=== PATIENT | male | born 1955 | race Caucasian/White ===

== ENCOUNTER 2017-04-08 19:14 | Emergency (ER) | payer BC ==
[~2017-04-08] VITALS: Ht 182.9 cm; Wt 98.0 kg
[~2017-04-08 19:14] MED LIST: ASCA500 PO; LISI2.5T5 PO; LPT40 PO; SELE1TAB PO
[2017-04-08 19:17] VITALS: Ht 182.9 cm; Wt 98.0 kg
[2017-04-08 20:10] LABS: BASO % 0.3 %; BASO ABS # 0.02 K/uL (0-0.2); COMPLETE YES; HEMATOCRIT 42.3 % (42-52); IG% 0.1 %; LYMPH % 20.7 %; MEAN CELL VOLUME 89.6 fL (80-100); MEAN CORPUSCULAR HEMOGLOBIN 30.7 pg (25-34); MEAN CORPUSCULAR HGB CONC 34.3 g/dl (32-36); MEAN PLATELET VOLUME 9.8 fL (7.4-10.4); MONO % 9.9 %; PLATELET COUNT 172 K/uL (130-400); RED BLOOD COUNT 4.72 M/uL (4.7-6.1); WHITE BLOOD COUNT 6.76 K/uL (4.8-10.8)
--- NOTE | 2017-04-08 20:10 | DIAGNOSTIC IMAGING REPORT ---
LEFT TIBIA/FIBULA 2 VIEWS ROUTINE CLINICAL HISTORY: 61 years-old Male presenting with L lower leg pain. TECHNIQUE: Frontal and lateral views of the left lower leg were obtained. COMPARISON: None. FINDINGS: Ankle mortise and knee joint grossly congruent. No acute fracture or malalignment. Degenerative changes at the patellofemoral articulation. Knee joint effusion suggested. IMPRESSION: No acute osseous injury of the left lower leg. Possible knee joint effusion. Electronically signed by: Lev Andrade M.D. 04/08/2017 8:08 PM Dictated Date/Time: 04/08/2017 8:07 PM
[2017-04-08 20:19] LABS: PARTIAL THROMBOPLASTIN RATIO 1.1; PROTHROMBIN TIME (PATIENT) 10.9 SECONDS (9.0-12.0)
[2017-04-08 20:25] LABS: BUN/CREATININE RATIO 19.1 (10-20); CALCIUM 8.2 mg/dl (8.5-10.1); CREATININE 1.5 mg/dl (0.60-1.40); POTASSIUM 3.4 mmol/L (3.5-5.1)
--- NOTE | 2017-04-08 20:27 | DIAGNOSTIC IMAGING REPORT ---
LEFT VENOUS DOPP LOWER EXT UNILAT CLINICAL HISTORY: 61 years-old Male presenting with L lower leg pain and swelling. TECHNIQUE: Real-time grayscale and color and spectral Doppler ultrasound imaging of the veins of the left lower extremity was performed. Compression and augmentation were also utilized. COMPARISON: None. FINDINGS: Left: Common femoral vein: Patent. Femoral vein: Patent. Greater saphenous vein: Patent. Popliteal vein: Patent. Calf veins: Patent. Other: None. IMPRESSION: No evidence of deep venous thrombosis. Electronically signed by: Lev Andrade M.D. 04/08/2017 8:25 PM Dictated Date/Time: 04/08/2017 8:25 PM
--- NOTE | 2017-04-08 21:13 | DIAGNOSTIC IMAGING REPORT ---
LEFT KNEE 3 VIEWS CLINICAL HISTORY: 61 years-old Male presenting with L leg pain; xray shows jt effusion. TECHNIQUE: Frontal, lateral, and sunrise views of the left knee were obtained. COMPARISON: None. FINDINGS: No acute fracture or malalignment. Mild degenerative change at the superior pole of the patella at the insertion of the quadriceps tendon. Minimal osteophytosis in the medial compartment at the medial tibial plateau. No significant degenerative change in the lateral compartment. Trace knee joint effusion may be present. IMPRESSION: 1. No acute osseous injury. 2. Trace knee joint effusion. 3. Degenerative change at the insertion of the quadriceps tendon and minimally at the medial compartment. Electronically signed by: Lev Andrade M.D. 04/08/2017 9:12 PM Dictated Date/Time: 04/08/2017 9:10 PM
[2017-04-08] MEDS ORDERED: IBUPROFEN 600 MG TAB PO STA (21:36)
[2017-04-08] MEDS ORDERED: MAGN1CAP4 PO (21:48)
[2017-04-08] MEDS ORDERED: FLM4 PO (21:48)
[2017-04-08] MEDS ORDERED: LSN/10125 PO (21:48)
[2017-04-08 22:16] VITALS: BP 123/69; PULSE 77; TEMP 36.9; O2SAT 99
--- NOTE | 2017-04-09 21:09 | EMERGENCY ROOM VISIT NOTE ---
ED Visit Note First contact with patient: 19:25 Chief Complaint: Left lower leg pain. History of Present Illness: Mr. Allen is a 61-year-old white male who is brought into the ED via wheelchair complaining of severe left lower leg pain. Historically patient denies any previous significant injuries or surgeries to this area. Patient reports approximately 3 days ago he noted mild pain in the left lower leg starting in the knee and extending to the ankle. Since that time his pain has gradually increased in intensity. He currently describes his pain as a sharp and throbbing sensation. At rest he rates his discomfort 2/10 and with weightbearing and ambulation he rates his discomfort 8/10. His pain is nonradiating. His pain worsens in the pushoff phase of ambulation and weightbearing. He has moderate relief when he is not weightbearing or ambulating. He has not taken any medication for pain prior to arrival at the hospital. He denies any associated symptoms including fevers, chills, sweats, recent trauma, back pain, hip pain, thigh pain, leg weakness/numbness/tingling, previous clots, claudication, cramping. Review of Systems: As noted above in history of present illness. 8 body systems were reviewed and found to be negative as noted above. Past Medical History: (1) Bronchitis (2) Hypertension (3) TIA (transient ischemic attack) (4) Weakness Current Medications: Medications Dose Route/Sig Max Daily Dose Days Date Category Magnesium (Magnesium Oxide) 500 Mg Cap 500 Mg PO DAILY 04/08/17 Reported Lisinopril/Hctz 10/12.5 Mg (HCTZ/Lisinopril) 1 Ea Tab 1 Tab PO DAILY 04/08/17 Reported Tamsulosin HCl 0.4 Mg Cap 0.4 Mg PO HS 04/08/17 Reported Atorvastatin Calcium (Atorvastatin) 40 Mg Tab 40 Mg PO QAM 30 10/26/15 Rx Selenium 100 Mcg Tab 100 Mcg PO DAILY 10/25/15 Reported Allergies to Medications: Patient denies. Social History: Patient is currently employed; he feels safe in his home environment; he denies tobacco and alcohol use. Physical Examination: Vital Signs: Date Time Temp Pulse Resp B/P (MAP) Pulse Ox O2 Delivery O2 Flow Rate FiO2 04/08/17 22:16 36.9 77 18 123/69 99 04/08/17 19:17 36.9 69 18 125/80 98 Room Air GENERAL: 61-year-old male in mild to moderate distress due to pain, nontoxic- appearing, afebrile and hemodynamically stable. NEUROLOGICAL: Awake, alert and oriented to person, place and time. Answering questions appropriately and following commands. Good hand eye coordination. No focal motor or sensory deficits. SKIN: Warm, dry and pink. No soft tissue eruptions or trauma noted. BACK: No tenderness over the thoracic or lumbar bony spine. No tenderness or spasm throughout the paraspinous musculature. Negative straight leg raise test. No CVA tenderness. THORAX: Lungs sounds are clear to auscultation and equal bilaterally with symmetrical chest wall. HEART: Regular rate and rhythm. No gallops, rubs or murmurs are appreciated. ABDOMEN: Flat, soft and nontender. Positive bowel sounds in all quadrants. No guarding, rigidity or organomegaly. LOWER EXTREMITIES: No gross bony deformities. No malrotation or shortening. Left: No tenderness in the hip, thigh, knee, ankle or foot. Mild tenderness over the posterior aspect of the leg with swelling but not erythema. No palpable abscesses or hot skin. No calf tenderness or cords. At rest for range of motion and 4/5 muscle strength in flexion and extension of the knee, plantar flexion and dorsiflexion of the ankles and flexion and extension of all toes. Throughout the leg and foot the skin was warm and pink and capillary refill is brisk. He was able to distinguish light sensations through all dermatomes. 2+ patellar and Achilles deep tendon reflexes intact and equal bilaterally. ED Course: Patient is assessed as noted above. Patient's medication list was reviewed. Laboratory Testing: Test 04/08/17 19:50 Range/Units White Blood Count 6.76 4.8-10.8 K/uL Red Blood Count 4.72 4.7-6.1 M/uL Hemoglobin 14.5 14.0-18.0 g/dL Hematocrit 42.3 42-52 % Mean Corpuscular Volume 89.6 80-100 fL Mean Corpuscular Hemoglobin 30.7 25-34 pg Mean Corpuscular Hemoglobin Concent 34.3 32-36 g/dl Platelet Count 172 130-400 K/uL Mean Platelet Volume 9.8 7.4-10.4 fL Neutrophils (%) (Auto) 68.0 % Lymphocytes (%) (Auto) 20.7 % Monocytes (%) (Auto) 9.9 % Eosinophils (%) (Auto) 1.0 % Basophils (%) (Auto) 0.3 % Neutrophils # (Auto) 4.59 1.4-6.5 K/uL Lymphocytes # (Auto) 1.40 1.2-3.4 K/uL Monocytes # (Auto) 0.67 0.11-0.59 K/uL Eosinophils # (Auto) 0.07 0-0.5 K/uL Basophils # (Auto) 0.02 0-0.2 K/uL RDW Standard Deviation 44.9 36.4-46.3 fL RDW Coefficient of Variation 13.5 11.5-14.5 % Immature Granulocyte % (Auto) 0.1 % Immature Granulocyte # (Auto) 0.01 0.00-0.02 K/uL Prothrombin Time 10.9 9.0-12.0 SECONDS Prothromb Time International Ratio 1.0 0.9-1.1 Activated Partial Thromboplast Time 28.1 21.0-31.0 SECONDS Partial Thromboplastin Ratio 1.1 Sodium Level 140 136-145 mmol/L Potassium Level 3.4 3.5-5.1 mmol/L Chloride Level 104 98-107 mmol/L Carbon Dioxide Level 29 21-32 mmol/L Anion Gap 7.0 3-11 mmol/L Blood Urea Nitrogen 29 7-18 mg/dl Creatinine 1.50 0.60-1.40 mg/dl Est Creatinine Clear Calc Drug Dose 61.9 ml/min Estimated GFR () 57.0 Estimated GFR (Non- 49.2 BUN/Creatinine Ratio 19.1 10-20 Random Glucose 110 70-99 mg/dl Calcium Level 8.2 8.5-10.1 mg/dl Total Bilirubin 0.5 0.2-1 mg/dl Direct Bilirubin 0.2 0-0.2 mg/dl Aspartate Amino Transf (AST/SGOT) 20 15-37 U/L Alanine Aminotransferase (ALT/SGPT) 31 12-78 U/L Alkaline Phosphatase 89 45-117 U/L Total Protein 7.2 6.4-8.2 gm/dl Albumin 3.6 3.4-5.0 gm/dl Left Knee X-Rays: Were read by myself and the radiologist showing no acute fractures or dislocations. D10 or chill changes noted at the insertion of the quadriceps tendon and minimally in the medial compartment with a trace joint effusion. Left Tibia/Fibula X-Rays: Were read by myself and the radiologist showing no acute fractures and a possible knee joint effusion. Left Lower Extremity Venous Doppler Ultrasound: Was reviewed by myself and read by the radiologist showing no evidence of deep vein thrombus. Patient was given 600 mg of ibuprofen by mouth for pain. Patient was reassessed multiple times during his stay in the ED. Patient's case was reviewed with Dr. Mayers; he agreed on diagnostic approach, treatment, disposition and plan. Patient was placed in a knee immobilizer and on nonweightbearing crutches. Patient was educated about today's findings and instructed on his treatment plan ; he verbalized understanding and agreement with this plan. Clinical Impression: Right lower leg pain. Left knee degenerative changes. Decision-Making: Initially my differential diagnosis I considered knee sprain, osteoarthritis exacerbation, gastrocnemius muscle strain, DVT, tibia or fibula fracture and other causes. Disposition: Patient was discharged home in stable condition; prior to departure he was reassessed and subjectively reported he was feeling worse and rated his discomfort 5/10. Plan: Comfort measures including rest, ice, alternating ibuprofen and acetaminophen, knee immobilizer and nonweightbearing crutches were discussed with the patient. Patient was encouraged to follow-up with dairy management specialist if no better in 7 -10 days. Patient was signed off of work for 3 days. Patient was encouraged return ED for worsening/uncontrolled pain, uncontrolled swelling or any new/concerning symptoms.
== END 2017-04-08 22:17 | disposition home or self-care (01) ==
LOC: C.EDB 19:15 → C.EDD 22:17
DX: M79.605 Pain in left leg (principal); I10 Essential (primary) hypertension; Z86.73 Personal history of transient ischemic attack (TIA), and cerebral infarction without residual deficits; Z79.899 Other long term (current) drug therapy

== ENCOUNTER → 2017-07-20 | Outpatient (CLI) | payer BC ==
[~2017-07-20] MED LIST changes: -ASCA500 PO; +FLM4 PO; -LISI2.5T5 PO; +LSN/10125 PO; +MAGN1CAP4 PO
[2017-07-20 12:51] LABS: SYNOVIAL FLUID APPEARANCE HAZY; SYNOVIAL FLUID COLOR YELLOW; SYNOVIAL FLUID MONONUC RELAT 79.8 %; SYNOVIAL FLUID POLYNUC RELAT 20.2 %
== END | disposition home or self-care (01) ==
LOC: C.LABSPEC 10:20
PROVIDERS: ATTEND Family Medicine
DX: M25.562 Pain in left knee (principal); M25.462 Effusion, left knee

== ENCOUNTER → 2017-09-07 | Outpatient (CLI) | payer OTHER ==
--- NOTE | 2017-09-07 15:05 | DIAGNOSTIC IMAGING REPORT ---
LEFT KNEE MRI HISTORY: Left knee stiffness. LT KNEE EFFUSION COMPARISON STUDY: Left knee 04/08/2017. TECHNIQUE: Multiplanar multisequence MRI of the left knee was performed according to standard department protocol without the use of contrast. FINDINGS: Menisci: Focal defect at the posterior root of the medial meniscus is consistent with a complete tear. There is also a horizontal tear seen within the body and posterior horn of the medial meniscus. The medial meniscus is slightly extruded from the joint space. Ligaments: The anterior and posterior cruciate ligaments are intact. The medial and lateral collateral ligaments are normal in appearance. Extensor mechanism: The quadriceps tendon and patellar ligament are intact. Articular cartilage and bone: No fracture or dislocation. Mild marrow edema within the medial femoral condyle cartilage fissure seen within the medial patellar facet. Mild cartilage thinning seen within the medial femoral condyle. Joint effusion: Small to moderate joint effusion. Soft tissues: Tiny popliteal cyst. Mild edema adjacent to the MCL. IMPRESSION: 1. Complete tear of the posterior root of the medial meniscus as well as a horizontal tear at the body and posterior horn of the medial meniscus. 2. Mild degenerative changes as described above. 3. Small to moderate joint effusion. Electronically signed by: Sebas Gastelum M.D. 09/07/2017 3:04 PM Dictated Date/Time: 09/07/2017 2:59 PM
== END | disposition home or self-care (01) ==
LOC: C.MRI 13:35
PROVIDERS: ATTEND Family Medicine
DX: S83.242A Other tear of medial meniscus, current injury, left knee, initial encounter (principal); X58.XXXA Exposure to other specified factors, initial encounter

== ENCOUNTER → 2017-10-22 | Day surgery (SDC) | payer OTHER ==
[2017-09-28 15:39] VITALS: Ht 182.1 cm; Wt 100.0 kg
[~2017-10-22] VITALS: Ht 182.1 cm; Wt 100.0 kg
[~2017-10-22] MED LIST changes: +ASCA500 PO; +ASPI325T39 PO; +ATOR-24 PO; +ATROPINE SULFATE 0.1 MG/ML 5ML SYR IV PRN; +BUPIVACAINE/EPINEPHRINE 0.5% MPF 1:200,000 30 ML VIAL ONE; +CEFAZOLIN 2000MG IV PUSH 15 ML IV SCH; +DEXAMETHASONE SOD INJ 4 MG/ML VIAL ONE; +EpHEDrine SULFATE INJ 50 MG/ML AMP IV PRN; +EpINEphrine INJ 1MG/ML AMP 1 MG/ML AMP ONE; +FENTANYL CITRATE INJ 50 MCG/1 ML 2 ML VIAL IV PRN; +FENTANYL CITRATE INJ 50 MCG/1 ML 2 ML VIAL ONE; +KRIL1000 PO; +LACTATED RINGER'S 1000ML 1,000 ML IV SCH; +LIDOCAINE HCL 1% 20 ML VIAL ONE; +LIDOCAINE HCL 2% 2 ML VIAL (20MG/ML) ONE; -LPT40 PO; -MAGN1CAP4 PO; +MIDAZOLAM HCL 1 MG/ML 2ML VIAL ONE; +MoRPHine SULFATE 2 MG/ML CARP IV PRN; +MoRPHine SULFATE 4 MG/ML 1 ML CARP\\VIAL IV PRN; +ONDANSETRON INJ 2 MG/ML 2 ML VIAL IV PRN; +ONDANSETRON INJ 2 MG/ML 2 ML VIAL ONE; +OXYCODONE/ACETAMINOPHEN 5-325 TAB PO PRN; +PROPOFOL IV EMULSION 10 MG/ML 20 ML VIAL IV ONE
--- NOTE | 2017-10-22 08:36 | History & Physical Bridge - SC ---
H&P Re-Evaluation Bridge Note: I have examined the patient, reviewed the History & Physical and in the interval since the performance of the History & Physical I have noted the following changes of clinical significance: No changes noted
--- NOTE | 2017-10-22 11:30 | [facility] Post Operative Brief Note ---
Immediate Operative Summary Operative Date Oct 22, 2017. Pre-Operative Diagnosis Left Knee Pain Post-Operative Diagnosis Same and Synovitis, Medial Plica, and Loose Body Procedure(s) Performed 1) Left Knee Arthroscopic Chondroplasty: Patella, MFC, LTP with Partial Medial and Lateral Meniscectomies. 2) Extensive Debridement Suprapatellar pouch, fat pad, medial Plicae, gutters. 3) Removal of Loose Body. 4) Exam Under Anesthesia. Surgeon Dr. Shook Pot Builder Surgeon(s) Zen Mosley PA-C (No fellow Avail) Estimated Blood Loss 5ml Findings Consistent with Post-Op Diagnosis Fluids (cc crystalloids) 900 Specimens None Drains None Anesthesia Type General Complication(s) none Disposition Disposition: Recovery Room / PACU (Stable)
--- NOTE | 2017-10-22 11:33 | Discharge Instructions-[facility]urgCtr ---
Discharge Instructions Date of Service Oct 22, 2017. Visit Reason for Visit: Left Knee Medial Meniscus Tear Discharge Discharge Diagnosis / Problem: Status post left knee arthroscopy Discharge Goals Goal(s): Decrease discomfort, Improve function, Increase independence Activity Recommendations Activity Limitations: per Instructions/Follow-up section May Resume Sexual Activity: when tolerated Shower/Bathe: may shower/bathe in 3 days Driving or Machine Use: Not while on Narcotics Anesthesia . Post Anesthesia Instructions: If you have had General Anesthesia or IV Sedation: * Do not drive today. * Resume driving when surgeon permits. * Do not make important decisions or sign legal documents today. * Call surgeon for: 1. Temperature elevations greater than 101 degrees F. 2. Uncontrollable pain. 3. Excessive bleeding. 4. Persistent nausea and vomiting. 5. Medication intolerance (nausea, vomiting or rash). * For nausea and vomiting use only clear liquids such as: tea, soda, bouillon until nausea subsides, then gradually increase diet as tolerated. * If you have any concerns or questions, call your surgeon's office. If physician is unavailable and it is an emergency, call 911 or go to the nearest emergency room. . Instructions / Follow-Up Instructions / Follow-Up Dr. Shook in 10-15 days. PT in 3-5 days. Diet Recommendations Home Diet: resume previous diet Procedures Procedures Performed: 1) Left Knee Arthroscopic Chondroplasty: Patella, MFC, LTP with Partial Medial and Lateral Meniscectomies. 2) Extensive Debridement Suprapatellar pouch, fat pad, medial Plicae, gutters. 3) Removal of Loose Body. 4) Exam Under Anesthesia. Pending Studies Studies pending at discharge: no Medical Emergencies . Who to Call and When: Medical Emergencies: If at any time you feel your situation is an emergency, please call 911 immediately. . Non-Emergent Contact Non-Emergency issues call your: Surgeon Call Non-Emergent contact if: temperature is above 101.5, your pain is not controlled, wound has increased drainage, wound has increased redness . . "Provider Documentation" section prepared by Chester Shook. .
--- NOTE | 2017-10-22 11:34 | [facility] Operative Report ---
Operative Report Operative Date Oct 22, 2017. Pre-Operative Diagnosis Left Knee Pain Post-Operative Diagnosis Same and Synovitis, Medial Plica, and Loose Body Procedure(s) Performed 1) Left Knee Arthroscopic Chondroplasty: Patella, MFC, LTP with Partial Medial and Lateral Meniscectomies. 2) Extensive Debridement Suprapatellar pouch, fat pad, medial Plicae, gutters. 3) Removal of Loose Body. 4) Exam Under Anesthesia. Surgeon Dr. Shook Obstetrics Tech Surgeon(s) Zen Mosely PA-C (No fellow Avail) Estimated Blood Loss 5ml Findings The left knee was examined under anesthesia. Range of motion was 0-130. Ligamentous examination exhibited: stable Jose, posterior drawer, varus and valgus stress at 0 & 30 degrees. ARTHROSCOPIC FINDINGS: There was significant synovitis in the suprapatellar pouch. There were loose bodies noted in the suprapatellar pouch as well as in evacuated fluid from the knee once the trocar had been placed. 1) PATELLOFEMORAL JOINT: The articular cartilage of the Patella had Outerbridge type had Outerbridge type 2 changes and Trochlea had type I changes. 2) GUTTERS: There were a couple of loose bodies in the lateral gutter. 3) MEDIAL COMPARTMENT: The articular cartilage of the femur had diffuse type II changes from 0-90 and there is a small 3 x 2 area of type III changes at 80. The Tibia articular cartilage was intact. The medial meniscus had a full- thickness longitudinal tear at the apex in the white white zone. The posterior horn and root were intact. 4) ACL/PCL: They were both visualized and probed to be intact. 5) LATERAL COMPARTMENT: The lateral compartment was then entered in a figure-of- four position. The femoral articular cartilage was intact and tibial articular cartilage had some type II changes at the anterior and posterior horns. The lateral meniscus had degenerative fraying at the apex. Fluids 900 Specimens None Drains None Anesthesia Type General Complication(s) none Disposition Recovery Room / PACU (Stable) Indications This is a 62-year-old male who has clinical and MRI findings consistent with meniscus tear and chondromalacia. I recommended that a left knee arthroscopy be performed with meniscus repair vs debridement, possible chondroplasty versus microfracture. The patient understands the risks of surgery, which include but not limited to: bleeding, infection, re-operation, damage to nerves and arteries , continued knee pain, progression of OA, DVT, and a 2-5% risk of becoming worse after surgery. The patient understands all of these instructions and explanations, all of his questions have been satisfactorily addressed and the patient has elected to proceed. Informed consent was signed. Description of Procedure The patient was taken to the Operating Room and placed in the supine position after general anesthetic was administered. My initials and a multidisciplinary time-out were used to identify the left place leg as the correct operative limb. Prior to the incision, 2 grams of intravenous Ancef was given. The left leg was then prepped and draped in a standard sterile fashion. The left knee was then injected with 10cc of a 50:50 mix of 1% Lidocaine plain and 0.5% Bupivacaine with epinephrine in a sterile fashion using the superolateral portal. The anterolateral, anteromedial, and superolateral portals were injected with the 50:50 mixture noted above, for a total of 6 cc, in the standard fashion. An anterolateral arthroscopic portal was established with an 11-blade. Next, the arthroscope was introduced into the knee. A diagnostic arthroscopy commenced and both the superolateral and anteromedial portals were established under direct visualization using a spinal needle followed by an 11 blade in the standard fashion. The above findings were observed during the diagnostic arthroscopy. The synovitis and anterior fat pad were debrided as they were encounter with mechanical shaver and Coolcut. The medial plicae was excised with a combination of hand punches, mechanical shaver and Coolcut. The articular cartilage damage was debrided back to stable margins as they were encountered with mechanical shaver. The medial and lateral meniscus tears were evaluated and found to be irreparable and was debrided back to stable margin with hand punches, and mechanical shaver. The knee was copiously irrigated. The arthroscopic instruments were then removed. The loose bodies were removed as they were encountered with the trocar as well as mechanical shaver, and outflow cannula. The portals were closed with 3-0 Prolene in a standard fashion. The wound was dressed with Xeroform gauze, sterile gauze, ABDs, sterile Webril, and a foot to thigh Black bandage. The patient was then transferred to the Recovery Room in stable condition. The sponge and needle counts were correct. Post-op Instructions: The patient will be WBAT. The patient may remove the operative dressing on Post -Op Day #2 and apply Band-Aids to the wounds. The patient may shower in 72 hours and is to wear the SEEMA for 2 weeks on the operative limb. The patient is to use the pain medicine as needed and take the ASA for 2 weeks. The patient was also given a handout for home quad strengthening and seated self-assisted ROM exercises, which they may begin tomorrow. The patient was given a prescription for PT and is scheduled for an appointment later this week. The patient is to follow up with me in 10-15 days. racheal I attest to the content of the Intraoperative Record and any orders documented therein. Any exceptions are noted below.
--- NOTE | 2017-10-22 11:39 | [facility] Operative Report ---
Operative Report Operative Date Oct 22, 2017. Pre-Operative Diagnosis Left Knee Pain Post-Operative Diagnosis Same and Synovitis, Medial Plica, and Loose Body Procedure(s) Performed 1) Left Knee Arthroscopic Chondroplasty: Patella, MFC, LTP with Partial Medial and Lateral Meniscectomies. 2) Extensive Debridement Suprapatellar pouch, fat pad, medial Plicae, gutters. 3) Removal of Loose Body. 4) Exam Under Anesthesia. Surgeon Dr. Shook Slot Host Surgeon(s) Zen Mosley PA-C (No fellow Avail) Estimated Blood Loss 5ml Fluids 900 Specimens None Drains None Anesthesia Type General Complication(s) none Disposition Recovery Room / PACU (Stable) I attest to the content of the Intraoperative Record and any orders documented therein. Any exceptions are noted below.
--- NOTE | 2017-10-22 12:28 | Anesthesia Progress Nt - [facility] ---
Anesthesia Post Op Note Date & Time Oct 22, 2017 at 12:27 Vital Signs Pain Intensity: 0 Vital Signs Past 12 Hours Date Time Temp Pulse Resp B/P (MAP) Pulse Ox O2 Delivery O2 Flow Rate FiO2 10/22/17 12:09 62 13 10/22/17 12:09 62 13 98 10/22/17 12:05 171/103 10/22/17 12:04 58 15 99 10/22/17 12:04 63 15 10/22/17 12:01 154/88 10/22/17 11:59 60 13 99 10/22/17 11:59 60 13 10/22/17 11:55 162/99 10/22/17 11:54 9 10/22/17 11:54 60 9 10/22/17 11:50 157/103 10/22/17 11:49 18 10/22/17 11:49 69 18 10/22/17 11:46 151/98 10/22/17 11:44 71 14 10/22/17 11:44 66 14 99 10/22/17 11:41 102/66 10/22/17 11:39 36.2 74 12 126/76 98 6 10/22/17 11:39 74 10 10/22/17 11:39 73 10 126/70 98 10/22/17 08:40 36.3 64 16 146/85 (105) 95 Room Air Notes Mental Status: alert / awake / arousable, participated in evaluation Pt Amnestic to Procedure: Yes Nausea / Vomiting: adequately controlled Pain: adequately controlled Airway Patency, RR, SpO2: stable & adequate BP & HR: stable & adequate Hydration State: stable & adequate Anesthetic Complications: no major complications apparent
[2017-10-22 12:44] VITALS: TEMP 36
[2017-10-22 13:24] VITALS: BP 172/81; PULSE 60; O2SAT 99
== END | disposition home or self-care (01) ==
LOC: X.SURG 08:15
PROVIDERS: ATTEND Orthopaedic Surgery Sports Medicine
DX: S83.242A Other tear of medial meniscus, current injury, left knee, initial encounter (principal); M65.862 Other synovitis and tenosynovitis, left lower leg; M67.52 Plica syndrome, left knee; M23.42 Loose body in knee, left knee; X58.XXXA Exposure to other specified factors, initial encounter; Z86.73 Personal history of transient ischemic attack (TIA), and cerebral infarction without residual deficits; I10 Essential (primary) hypertension; Z98.890 Other specified postprocedural states; Z98.818 Other dental procedure status; E78.5 Hyperlipidemia, unspecified; Z80.52 Family history of malignant neoplasm of bladder; Z82.49 Family history of ischemic heart disease and other diseases of the circulatory system; Z83.3 Family history of diabetes mellitus; Z80.0 Family history of malignant neoplasm of digestive organs; Z79.82 Long term (current) use of aspirin; Z79.899 Other long term (current) drug therapy

== ENCOUNTER 2022-11-12 23:57 | Inpatient (IN) ==
--- NOTE | 2022-11-13 00:19 | Emergency Department Note ---
History of Present Illness General Chief complaint: Urinary Symptoms Stated complaint: S/P PROSTATE SURGERY,PEEING BLOOD,NOT ABLE TO GO Time Seen by Provider: 11/13/22 00:06 History of Present Illness Maximum Pain Intensity: 10 67-year-old male presents emergency department he is status post prostatectomy on October 30 at [place] and at the time he had a Hickman catheter removed he was doing quite well he states for the past 2 weeks. This evening when he went to bed he had the urge to urinate and when he tried to he noticed that there was blood when he urinated. Patient states that he is now unable to urinate. Patient states he is not on any blood thinners. Patient denies nausea vomiting or fever. There are no other mitigating or alleviating factors Home Medications Medication Instructions Recorded Confirmed Type aspirin 81 mg tablet,delayed 81 mg PO HS 02/15/21 11/13/22 History release magnesium 250 mg tablet 250 mg PO DAILY PRN Leg Spasm 02/15/21 11/13/22 History metoprolol succinate 25 mg 12.5 mg PO HS 02/15/21 11/13/22 History tablet,extended release 24 hr atorvastatin 80 mg tablet 80 mg PO HS 09/11/22 11/13/22 History lisinopril 20 mg tablet 20 mg PO DAILY 11/13/22 11/13/22 History Allergies Allergy/AdvReac Type Severity Reaction Status Date / Time No Known Allergies Allergy Unknown ` Verified 11/13/22 00:36 Past Med/Surg History Medical History Elevated prostate specific antigen (PSA) Hematuria High cholesterol Hypertension TIA (transient ischemic attack) Surgical History No pertinent past surgical history Social History Smoking Status: Never smoker Preferred Language: Luxembourgish Feels Safe at Home: Yes Review of Systems A total of 10 systems reviewed and were otherwise negative Genitourinary (Male): + hematuria Physical Exam Vital Signs Vital Signs - 24 hr 11/13/22 00:00 11/13/22 01:29 Temperature 36.7 C Temperature Source Oral Pulse Rate 115 H Respiratory Rate 20 Blood Pressure 166/72 H Blood Pressure Mean 103 Pulse Oximetry 100 98 Oxygen Delivery Method Room Air Room Air Sepsis Recent Fever Within 48 Hours No Sepsis New/Unexplained Change in Mental Status N/A Sepsis Action Taken by Nursing No Action Required GENERAL: Patient is awake alert in no acute distress patient is resting comfortably and showing no signs of anxiety EYES: The conjunctivae are clear. The pupils are round and reactive. EARS, NOSE, MOUTH AND THROAT: The nose is without any evidence of any deformity. Mucous membranes are moist. Tongue is midline. NECK: The neck is nontender and supple. RESPIRATORY: Normal respiratory effort is noted there is no evidence of wheezing rhonchi or rales CARDIOVASCULAR: Regular rate and rhythm noted there no murmurs rubs or gallops normal S1 normal S2. GASTROINTESTINAL: The abdomen is soft. Abdomen is nontender. : blood at meatus BACK: No midline tenderness or or step-off noted range of motion in flexion extension as well as rotation no signs of muscle spasm noted MUSCULOSKELETAL/EXTREMITIES: There is no evidence of gross deformity full range of motion is noted in the hips and shoulders. SKIN: There is no obvious evidence of any rash. There are no petechiae, pallor or cyanosis noted. NEUROLOGIC: Patient is awake alert and oriented x3 strength is symmetric Course Reevaluation(s) Reevaluation #1: Patient started on CBI. Patient continued to have hematuria; patient was started on IV Rocephin Time: :55 Consultations Consultation #1: Case was discussed with Kareem from urology Time: :55 Consultation #2: Case was discussed with [facility] hospitalist for admission Time: :55 Medical Decision Making Medical Records Attestation: I reviewed the patient's medical records. Home Medications Current Medication List: was personally reviewed by me Laboratory Data Attestation: I reviewed the patient's lab results. Patient has a urinary tract infection, has leukocytosis as well 11/13/22 01:39 11/13/22 01:39 Lab Results 11/13/22 11/13/22 Range/Units 00:23 01:39 WBC 19.85 H (4.8-10.8) K/ul RBC 3.62 L (4.70-6.10) M/uL Hgb 11.0 L (14.0-18.0) g/dl Hct 33.3 L (42.0-52.0) % MCV 92.0 (80.0-100.0) fL MCH 30.4 (25.0-34.0) pg MCHC 33.0 (32.0-36.0) g/dL RDW Std Deviation 46.7 H (36.4-46.3) fL RDW Coeff of Bhargav 13.8 (11.5-14.5) % Plt Count 462 H (130-400) K/uL MPV 9.0 L (9.4-12.4) fL Urine Color Red Urine Appearance Turbid A (Clear) Urine pH 7.5 (4.5-7.5) Ur Specific [place] 1.020 (1.000-1.030) Urine Protein 3+ H (Negative) Urine Glucose (UA) Negative (Negative) Urine Ketones Negative (Negative) Urine Blood 3+ H (Negative) Urine Nitrite Positive A (Negative) Urine Bilirubin 1+ H (Negative) Urine Urobilinogen Negative (Negative) Ur Leukocyte Esterase 1+ H (Negative) Urine RBC >30 H (0-4) /hpf Urine WBC >30 H (0-5) /hpf Ur Epithelial Cells 0-5 (0-5) /lpf Urine Bacteria Negative (Negative) MDM Narrative Medical decision making differential diagnosis includes urinary retention, urinary tract infection Plan is to bladder scan, Place Hickman catheter for CBI irrigation Impression & Plan Hematuria, Acute retention of urine, Acute UTI (urinary tract infection) Discharge Plan Visit Data Chief Complaint: Urinary Symptoms Stated Complaint: S/P PROSTATE SURGERY,PEEING BLOOD,NOT ABLE TO GO ED Provider: Jack Sheets Discharge Problem: Hematuria, Acute retention of urine, Acute UTI (urinary tract infection) Patient Disposition: Admitted As Inpatient Forms Stand Alone Forms: My [facility] Prescriptions Prescriptions: No Action atorvastatin 80 mg tablet 80 mg PO HS aspirin 81 mg Tablet,Delayed Release (Dr/Ec) 81 mg PO HS magnesium 250 mg Tablet 250 mg PO DAILY PRN (Reason: Leg Spasm) metoprolol succinate 25 mg tablet extended release 24 hr 12.5 mg PO HS lisinopril 20 mg tablet 20 mg PO DAILY Referrals Referrals: Gillian Puckett CRNP [Primary Care Provider] -
[2022-11-13 00:55] LABS: Appearance Urine Turbid (Clear); Bilirubin Urine 1+ (Negative); Blood Urine 3+ (Negative); Color Urine Red; Glucose Urine UA Negative (Negative); Ketones Urine Negative (Negative); Leukocyte Esterase Urine 1+ (Negative); Nitrite Urine Positive (Negative); Protein Urine 3+ (Negative); Urobilinogen Urine Negative (Negative); pH Urine 7.5 (4.5-7.5)
[2022-11-13 00:56] LABS: RBC Urine >30 /hpf (0-4)
[2022-11-13 00:57] LABS: Bacteria Urine Negative (Negative); Epithelial Cell Urine 0-5 /lpf (0-5); WBC Urine >30 /hpf (0-5)
--- NOTE | 2022-11-13 02:06 | Urology Consultation ---
Date of Consultation November 13, 2022 Assessment & Plan (1) Acute retention of urine: (2) Hematuria: I discussed with the treating emergency room physician and the patient is being admitted on the hospitalist service. We recommend proceeding as follows: Due to the patient's hematuria recommend following serial labs. Transfusions can be employed if there is a precipitous drop in patient's hemoglobin and hematocrit Recommend holding patient's antiplatelet medication (he does take aspirin as an outpatient) By urinalysis appears though the patient may have a urinary tract infection. Urine culture has been ordered by the treating emergency room physician. Think would be prudent to initiate antibiotics so I therefore ordered ciprofloxacin as the patient does not have a listed allergy to this medication. Prior to my arrival continuous bladder irrigation had been initiated. At the time of my arrival the continuous bladder irrigation had markedly clear the patient's hematuria. Would recommend continuing this modality for the present time. Throughout the course of patient's hospitalization attempts can be made to titrate the patient's continuous bladder irrigation based on the clinical response and the amount of hematuria that persists. Would recommend keeping the patient n.p.o. until evaluated by our dayshift team in the morning to determine if any procedural intervention will be required Additional recommendations to be forthcoming based on his clinical course as it unfolds Supervising Physician Co-Signing Physician Notes Discussed patient with LILLY. Agree with plan. Reviewed chart and imaging. 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 Patient does have right-sided hydronephrosis due the mass however creatinine is not elevated at the moment and no concern for UTI so I do not think placing a stent is necessary at this time. No acute urologic intervention necessary. Patient will need tissue sample for diagnosis, which may have to be done at an outside facility. He will then need medical oncology for systemic treatment. I do not think he would benefit from a cytoreductive nephrectomy given his metastastic burden and likely poor risk based on his initial labs. History of Present Illness Reason for Consultation: Hematuria History of Present Illness This is a 67-year-old male who underwent a fairly recent urologic procedure at [facility] in [place]. The patient underwent a cystoscopy with the transurethral laser enucleation of his prostate gland. The patient says that this procedure was performed on 10/26/2022. He says he was in the hospital overnight and he was discharged home with a Hickman catheter in place. [facility] to the [facility] physician group urology office on 10/30/2022 for a voiding trial. The patient successfully passed this voiding trial but notes that he initially had hematuria which eventually cleared over the course of 2 to 3 days. Patient says since that time he has been voiding clear urine until approximate 7:00 PM on 11/12/2022 he began to have gross hematuria. He says he was not passing any blood clots. Patient says that when his hematuria began he was initially able to void but throughout the course of the evening he was having greater difficulty voiding and then had the inability to void at all. He notes that he did not have any fevers, shakes, or chills. He did not have any back or flank pain. He denied any nausea or vomiting. Patient says that he did have some suprapubic discomfort and also had some penile discomfort. Because of these symptoms he presented to the emergency department for further evaluation. It is noteworthy to mention that the patient does take aspirin daily but he does not take any other anticoagulants or antiplatelet medications. Since arrival to the hospital the patient has had a urinalysis checked. This s hows the patient had turbid urine with 3+ blood. It was positive for nitrates as well as 1+ leukocyte Estrace. There were greater than 30 white blood cells per high-power field. It was negative for bacteria. The treating emergency room physician has also ordered a CBC and a comprehensive metabolic panel along with coagulation studies which are pending. A COVID test is also pending. Since arrival to the emergency department the treating emergency room physician has ordered continuous bladder irrigation. I did discuss with the nurse who put this modality in place. She notes that the patient's Hickman catheter was placed easily. She notes that she flushed and irrigated the catheter easily and did not retrieve any blood clots. She notes initially the patient's urine was best red-colored but once continuous bladder irrigation was initiated the urine cleared somewhat. She does note that the patient has been up to the restroom several times and when he gets up to ambulate his urine becomes somewhat more bloody. At the time of my interview the patient was resting comfortably in bed and he was in no distress. Allergies Allergy/AdvReac Type Severity Reaction Status Date / Time No Known Allergies Allergy Unknown ` Verified 11/13/22 00:36 Home Medications Medication Instructions Recorded Confirmed Type aspirin 81 mg tablet,delayed 81 mg PO HS 02/15/21 11/13/22 History release magnesium 250 mg tablet 250 mg PO DAILY PRN Leg Spasm 02/15/21 11/13/22 History metoprolol succinate 25 mg 12.5 mg PO HS 02/15/21 11/13/22 History tablet,extended release 24 hr atorvastatin 80 mg tablet 80 mg PO HS 09/11/22 11/13/22 History lisinopril 20 mg tablet 20 mg PO DAILY 11/13/22 11/13/22 History Patient History Medical History Elevated prostate specific antigen (PSA) Hematuria High cholesterol Hypertension TIA (transient ischemic attack) Surgical History No pertinent past surgical history Social History Smoking Status: Never smoker Preferred Language: Upper Sorbian Feels Safe at Home: Yes Review of Systems Constitutional: no fever and no chills Eyes: + corrective lenses Ear, Nose, Mouth, Throat: no ear pain Respiratory: no cough and no dyspnea Cardiovascular: no chest pain Gastrointestinal: no nausea and no vomiting Genitourinary: + as per Subjective / HPI Musculoskeletal: no back pain Integumentary: no rash Neurologic: no localized weakness Physical Exam Constitutional: WD/WN, vitals as above Eyes: Wears glasses ENMT: Ears: no hearing impairment Neck: trachea midline Respiratory: normal respiratory effort; no respiratory distress and no labored breathing Cardiovascular: Rate/Rhythm: regular rate and regular rhythm Gastrointestinal (Abdomen): Abdomen is soft, nonrigid, nondistended. There is no pain or suprapubic discomfort with palpation Musculoskeletal: No calf tenderness Skin: no rashes Neurologic: moves all extremities Psychiatric: A+Ox3, euthymic affect Genitourinary: Hickman catheter is in place which is currently hooked up to continuous bladder irrigation. There are no visible blood clots draining and the catheter appears patent and is draining blood-tinged urine at the present time. Results & Data Vital Signs (Past 12 Hours) Vital Signs Temp Pulse Resp BP Pulse Ox O2 Del Method 11/13/22 01:29 98 Room Air 11/13/22 00:00 36.7 C 115 H 20 166/72 H 100 Room Air PG Care Time/CCT Total # of Minutes Spent Total Time Spent with Patient: Total time spent is greater than 50% in coordination of care (as documented) at patient's floor/unit and/or counseling patient: Coding Level of Care Code 24218 INT INP/OBS CARE 3/75MIN Diagnoses Acute retention of urine R33.8 Hematuria R31.9
[2022-11-13 02:11] LABS: Hematocrit (blood only) 33.3 % (42.0-52.0); Mean Corpuscular Hemoglobin 30.4 pg (25.0-34.0); Platelet Count 462 K/uL (130-400); RDW Coefficient of Variation 13.8 % (11.5-14.5); RDW Standard Deviation 46.7 fL (36.4-46.3); Red Blood Count 3.62 M/uL (4.70-6.10); White Blood Count 19.85 K/ul (4.8-10.8)
[2022-11-13] MEDS ORDERED: cefTRIAXone SODIUM 2,000 MG/70 ML BAG IV STA (02:17)
[2022-11-13] MEDS ORDERED: KETOROLAC 30 MG/ML VIAL IV ONE (02:20)
--- NOTE | 2022-11-13 02:20 | History & Physical Report ---
Date of Service November 13, 2022 Assessment & Plan (1) Acute UTI (urinary tract infection): Plan: 67 yo male PMHx BPH, HLD, TIA, HTN, s/p prostatectomy on October 30 at [place] presents with hematuria. #Acute UTI #Hematuria #Urinary retention #s/p prostatectomy -1 day hematuria and unable to void. S/p cystoscopy with the transurethral laser enucleation of his prostate gland 10/26/2022. Presents with leukocytosis and tachycardia. -UA appears infectious -given 1 dose rocephin in ED. Will cont. rocephin empirically. Urine cx pending. -blood cx pending -wallace in place with continuous bladder irrigation -maintenance IVF -urology following -keep NPO until evaluated by dayshift team in the morning to determine if any procedural intervention will be required #DOREEN -likely pre-renal, IVF as above #HTN -hold lisinopril and metoprolol while NPO #HLD -hold statin while NPO DVT ppx: SCDs FEN/GI: NPO, NSS @ 125 ml/hr Code Status: Full Dispo: med surg (2) Acute retention of urine: (3) Hematuria: (4) BPH (benign prostatic hyperplasia): (5) High cholesterol: (6) Hypertension: History of Present Illness Chief Complaint: hematuria Primary Care Provider: CANDACE Dietz 67 yo male PMHx BPH, HLD, TIA, HTN, s/p prostatectomy on October 26 at [place] presents with hematuria. Of note, after his surgery, he passed voiding trial a week later. Since surgery he had been doing well until earlier today when he urinated he noticed blood. Now unable to urinate on his own. He did feel a bit dizzy like he might pass out on his way here but otherwise denies fevers, fatigue, chest pain, sob, abd pain, N/V/D, constipation, dysuria, back pain. Allergies Allergy/AdvReac Type Severity Reaction Status Date / Time No Known Allergies Allergy Unknown ` Verified 11/13/22 00:36 Home Medications Medication Instructions Recorded Confirmed Type aspirin 81 mg tablet,delayed 81 mg PO HS 02/15/21 11/13/22 History release magnesium 250 mg tablet 250 mg PO DAILY PRN Leg Spasm 02/15/21 11/13/22 History metoprolol succinate 25 mg 12.5 mg PO HS 02/15/21 11/13/22 History tablet,extended release 24 hr atorvastatin 80 mg tablet 80 mg PO HS 09/11/22 11/13/22 History lisinopril 20 mg tablet 20 mg PO DAILY 11/13/22 11/13/22 History Past Med/Surg History Medical History Elevated prostate specific antigen (PSA) Hematuria High cholesterol Hypertension TIA (transient ischemic attack) Surgical History No pertinent past surgical history Social History Smoking Status: Never smoker Second Hand Exposure: No; Do You Dip or Chew Tobacco: No; Hx Alcohol Use: Yes Alcohol type: wine Hx Substance Use: No Preferred Language: Azeri Communication Ability: Effective Community Service Specialist Required: No Beliefs That Will Affect Care: None Current Living Situation: Alone Other Information That Helps Us Care for You: No Feels Safe at Home: Yes Safety Concerns: Feels Safe At This Time Assistive Devices: Contacts Review of Systems Review of Systems: All systems reviewed & are unremarkable except as noted in HPI & below Physical Exam Physical Exam: Constitutional: in no acute distress, pleasant. AOx3. Vitals as above. HEENT: No scleral injection or discharge. Moist mucous membranes. Neck: Supple without lymphadenopathy or thyromegaly. Trachea midline. Lungs: Clear to auscultation bilaterally with good effort. Cardiac: Regular rate and rhythm. No murmurs. No extremity edema. 2+ distal peripheral pulses. Abdomen: Soft, nontender, and nondistended.No guarding. No hepatosplenomegaly. MSK: No cyanosis or clubbing. Extremities motor strength 5/5. Skin: No rashes, warm, dry. Neurologic: no focal deficits : +wallace in place Results & Data Results & Data Vital Signs (Past 12 Hours) Vital Signs Temp Pulse Resp BP Pulse Ox O2 Del Method 11/13/22 01:29 98 Room Air 11/13/22 00:00 36.7 C 115 H 20 166/72 H 100 Room Air Laboratory Results Laboratory Results WBC 19.85 K/ul (4.8-10.8) H 11/13/22 01:39 RBC 3.62 M/uL (4.70-6.10) L 11/13/22 01:39 Hgb 11.0 g/dl (14.0-18.0) L 11/13/22 01:39 Hct 33.3 % (42.0-52.0) L 11/13/22 01:39 MCV 92.0 fL (80.0-100.0) 11/13/22 01:39 MCH 30.4 pg (25.0-34.0) 11/13/22 01:39 MCHC 33.0 g/dL (32.0-36.0) 11/13/22 01:39 RDW Std Deviation 46.7 fL (36.4-46.3) H 11/13/22 01:39 RDW Coeff of Bhargav 13.8 % (11.5-14.5) 11/13/22 01:39 Plt Count 462 K/uL (130-400) H 11/13/22 01:39 MPV 9.0 fL (9.4-12.4) L 11/13/22 01:39 Immature Gran % (Auto) 0.7 % 11/13/22 01:39 Neut % (Auto) 90.2 % 11/13/22 01:39 Lymph % (Auto) 3.9 % 11/13/22 01:39 [place] % (Auto) 4.7 % 11/13/22 01:39 Eos % (Auto) 0.1 % 11/13/22 01:39 Baso % (Auto) 0.4 % 11/13/22 01:39 Neut # (Auto) 17.93 K/uL (1.40-6.50) H 11/13/22 01:39 Lymph # (Auto) 0.78 K/uL (1.2-3.4) L 11/13/22 01:39 [place] # (Auto) 0.93 K/uL (0.11-0.59) H 11/13/22 01:39 Eos # (Auto) 0.01 K/uL (0-0.50) 11/13/22 01:39 Baso # (Auto) 0.07 K/uL (0-0.2) 11/13/22 01:39 Immature Gran # (Auto) 0.13 K/uL (0.01-0.20) 11/13/22 01:39 RBC Morphology Unremarkable 11/13/22 01:39 PT 11.3 Seconds (9.0-12.0) 11/13/22 01:39 INR 1.1 (0.9-1.1) 11/13/22 01:39 Sodium 134 mmol/L (136-145) L 11/13/22 01:39 Potassium 4.1 mmol/L (3.5-5.1) 11/13/22 01:39 Chloride 101 mmol/L (98-107) 11/13/22 01:39 Carbon Dioxide 23 mmol/L (21-32) 11/13/22 01:39 Anion Gap 10 (3-11) 11/13/22 01:39 BUN 28 mg/dl (6-23) H 11/13/22 01:39 Creatinine 1.78 mg/dl (0.6-1.4) H 11/13/22 01:39 Est Cr Clr Drug Dosing 48.1 ml/min 11/13/22 01:39 Est GFR ( Amer) 44.4 ml/min 11/13/22 01:39 Est GFR (Non-Af Amer) 38.3 ml/min 11/13/22 01:39 BUN/Creatinine Ratio 15.7 (10-20) 11/13/22 01:39 Glucose 148 mg/dl (70-99(Fasting)) H 11/13/22 01:39 Calcium 8.6 mg/dl (8.6-10.3) 11/13/22 01:39 Total Bilirubin 0.5 mg/dl (0.2-1.0) 11/13/22 01:39 AST 18 U/L (13-39) 11/13/22 01:39 ALT 20 U/L (7-52) 11/13/22 01:39 Alkaline Phosphatase 75 U/L (34-104) 11/13/22 01:39 Total Protein 7.9 gm/dl (6.0-8.3) 11/13/22 01:39 Albumin 4.2 gm/dl (3.4-5.0) 11/13/22 01:39 Globulin 3.7 gm/dl (2.5-4.0) 11/13/22 01:39 Albumin/Globulin Ratio 1.1 (0.9-2) 11/13/22 01:39 Urine Color Red 11/13/22 00:23 Urine Appearance Turbid (Clear) A 11/13/22 00:23 Urine pH 7.5 (4.5-7.5) 11/13/22 00:23 Ur Specific [place] 1.020 (1.000-1.030) 11/13/22 00:23 Urine Protein 3+ (Negative) H 11/13/22 00:23 Urine Glucose (UA) Negative (Negative) 11/13/22 00:23 Urine Ketones Negative (Negative) 11/13/22 00:23 Urine Blood 3+ (Negative) H 11/13/22 00:23 Urine Nitrite Positive (Negative) A 11/13/22 00:23 Urine Bilirubin 1+ (Negative) H 11/13/22 00:23 Urine Urobilinogen Negative (Negative) 11/13/22 00:23 Ur Leukocyte Esterase 1+ (Negative) H 11/13/22 00:23 Urine RBC >30 /hpf (0-4) H 11/13/22 00:23 Urine WBC >30 /hpf (0-5) H 11/13/22 00:23 Ur Epithelial Cells 0-5 /lpf (0-5) 11/13/22 00:23 Urine Bacteria Negative (Negative) 11/13/22 00:23 SARS-CoV-2, RNA, NAAT NEGATIVE (NEGATIVE) 11/13/22 01:40 Supervising Physician Co-Signing Physician Notes Attending addendum: I have physically seen this patient, have supervised the medical residents activities, and agree with the H&P unless as otherwise noted. Assessment and Plan: Hematuria/acute UTI/urinary retention- Status post cystoscopy with transurethral laser enucleation of prostate on 10-26-2022 Wallace catheter placed in the ED Follow urine culture and sensitivity Continue empiric ceftriaxone 2 g IV daily IV fluids Neurology to assess CKD- Creatinine 1.78 on admission, with base 1.66-1.88 Placed on NSS 80 mils per hour, recheck laboratories serially Hold lisinopril Hypertension- Hold lisinopril and metoprolol while n.p.o. Blood pressure stable at this time Hyperlipidemia- Hold atorvastatin while n.p.o. Remaining orders and notations as noted Resident Activity Tracking Resident Involvement: Resident Care Provided Care Provided: [facility] (4) BPH (benign prostatic hyperplasia) Lower urinary tract symptom detail: urinary retention Lower urinary tract symptom presence: symptoms present Qualified Code(s): N40.1 - Benign prostatic hyperplasia with lower urinary tract symptoms; R33.8 - Other retention of urine
[2022-11-13 02:21] LABS: Albumin Globulin Ratio 1.1 (0.9-2); Albumin Level 4.2 gm/dl (3.4-5.0); BUN Creatinine Ratio 15.7 (10-20); Bilirubin,Total 0.5 mg/dl (0.2-1.0); Calcium 8.6 mg/dl (8.6-10.3); Creatinine Clr Calc Pharmacy 48.1 ml/min; Est GFR (African American) 44.4 ml/min; Est GFR (Non-African American) 38.3 ml/min; Globulin 3.7 gm/dl (2.5-4.0); Potassium 4.1 mmol/L (3.5-5.1); Total Protein 7.9 gm/dl (6.0-8.3)
[2022-11-13 02:30] LABS: INR 1.1 (0.9-1.1); Prothrombin Time 11.3 Seconds (9.0-12.0)
[2022-11-13] MEDS ORDERED: CIPROFLOXACIN / D5W 400 MG/200 ML BAG IV STA (02:33)
[2022-11-13 03:02] LABS: Basophils # (auto) 0.07 K/uL (0-0.2); Basophils % (auto) 0.4 %; Eosinophils # (auto) 0.01 K/uL (0-0.50); Eosinophils % (auto) 0.1 %; Immature Granulocytes # (auto) 0.13 K/uL (0.01-0.20); Immature Granulocytes % (auto) 0.7 %; Lymphocytes # (auto) 0.78 K/uL (1.2-3.4); Lymphocytes % (auto) 3.9 %; Monocytes # (auto) 0.93 K/uL (0.11-0.59); Monocytes % (auto) 4.7 %; Neutrophils # (auto) 17.93 K/uL (1.40-6.50); Neutrophils % (auto) 90.2 %; RBC Morphology Unremarkable
[2022-11-13] MEDS ORDERED: ONDANSETRON INJ 2 MG/ML 2 ML VIAL IV PRN (05:20)
[2022-11-13] MEDS ORDERED: ACETAMINOPHEN 1,000 MG/100 ML VIAL IV PRN (05:20)
--- NOTE | 2022-11-13 06:44 | Communication Note ---
Date of Service: November 13, 2022 Around 5:00 AM this morning I revisited with the patient at the bedside and his continuous bladder irrigation was running appropriately. Approximately 1 hour later I received a notification from the nursing staff stating the patient's CBI was no longer running appropriately and they were unable to flush and irrigate the catheter. I reassessed the patient at bedside within 5 minutes of the nursing call and attempted myself to manually flush and irrigate the catheter with little success. I therefore chose to exchange his Hickman catheter. He did have a 20 [place] three-way Hickman catheter in place and this was removed. I then replaced this with a 24 [place] three-way Hickman catheter that was easily placed into the bladder. Upon placing the Hickman catheter I immediately obtained approximately 500 cc of bloody urine. I then manually flushed and irrigated the catheter which was performed easily. Immediately upon placing the catheter and return of the 500 cc of urine I performed a bedside bladder scan and the patient had only had approximately 30 cc noted in his bladder. I flushed and irrigated his catheter several more times and then reinstituted continuous bladder irrigation and his urine was running clear. We will continue to monitor closely
[2022-11-13] MEDS: SODIUM CHLORIDE 0.9% 1000ML 1,000 ML IV SCH ×3 (07:51→23:06)
--- NOTE | 2022-11-13 10:34 | Urology Progress Note ---
I have discussed Mr. Allen's case with CANDACE Arnold and agree with the above documentation. Hickman catheter has likely been sliding back in the prostatic fossa causing intermittent blockage. Balloon has been inflated more softly this will help. Continue to wean CBI as urine clears. We will plan to hold off any operative intervention for now. Herrera Hamm MD Date of Service November 13, 2022 Assessment & Plan (1) Hematuria: Plan: Labs reviewedcreatinine 1.78, WBC 19.85, hemoglobin 11.0 Urine and blood cultures are pending 3 way Hickman catheter patent and draining clear urine with minimal pink tinge with CBI on moderate, CBI slowed during exam Will plan to wean down CBI as appropriate Called by nursing at 1015 with concern of catheter not draining. Gave instructions to stop CBI and manually irrigate catheter. I arrived at bedside and catheter was patent and draining. Per nursing, only two small clots returned. CBI was running at moderate pace, will continue for now and monitor closely. Patient was having ongoing discomfort at catheter insertion site. Ordered oxybutynin and topical lidocaine jelly for discomfort. Continue supportive care, antibiotics and medical management per primary service. Okay to hand irrigate as needed suprapubic discomfort, clot retention or clogged catheter/no drainage. Patient's Hickman reassessed this afternoon. Hickman patent and draining pink urine with CBI on moderate pace. Bladder scanned for 443 mL. CBI stopped. Suspect that balloon is pulling back into prostatic fossa causing partial obstruction of urine. I deflated catheter balloon and repositioned Hickman catheter. Immediate flash of urine returned. I then reinflated the balloon with 20 mL. After allowing urine to continue to drain, bladder scan was rechecked and showed 0 mL. CBI was restarted at moderate pace. Patient tolerated well without complication. will continue to monitor closely. Admission and Anticipated Discharge Date Admission Date: November 13, 2022 Subjective Patient seen and examined at bedside this morning. Hickman catheter was exchanged and upsized to a [address] Hickman earlier this morning by Kareem Kelley PA-C. Patient awake and resting in bed. He reports he is is currently comfortable. No suprapubic, abdominal or flank pain. Notes some mild discomfort at meatus. Hickman catheter patent and draining clear urine with minimal pink tinge with CBI running moderate. CBI slowed at time of exam. No nausea or vomiting. No fever or chills. Review of Systems Constitutional: as per Subjective / HPI Gastrointestinal: as per Subjective / HPI Genitourinary: + as per Subjective / HPI Physical Exam Constitutional: well developed and well nourished; no acute distress Respiratory: normal respiratory effort; no respiratory distress and no labored breathing Cardiovascular: Extremities: no pedal edema Gastrointestinal (Abdomen): Inspection/Auscultation: abdomen normal to inspection; abdomen not distended Musculoskeletal: Head/Neck/Chest: normocephalic and head atraumatic Neurologic: moves all extremities and awake Psychiatric: Orientation: alert and oriented x 3 Genitourinary: Hickman catheter patent and draining clear urine with minimal pink tinge with CBI running moderate. CBI slowed to at time of exam. Results & Data Vital Signs (Past 12 Hours) Vital Signs Temp Pulse Pulse Pulse Resp BP BP 11/13/22 07:52 36.4 C L 68 18 122/22 L 11/13/22 05:15 36.5 C 85 18 11/13/22 06:58 36.8 C 81 18 11/13/22 01:29 11/13/22 00:00 36.7 C 115 H 20 166/72 H BP Pulse Ox O2 Del Method 11/13/22 07:52 96 Room Air 11/13/22 05:15 149/83 H 96 Room Air 11/13/22 06:58 118/63 97 Room Air 11/13/22 01:29 98 Room Air 11/13/22 00:00 100 Room Air PG Care Time/CCT Total # of Minutes Spent Total Time Spent with Patient: Total time spent is greater than 50% in coordination of care (as documented) at patient's floor/unit and/or counseling patient: Coding Level of Care Code None Diagnoses Hematuria R31.9 Time Spent (min) 45
[2022-11-13] MEDS: OXYBUTYNIN CHLORIDE 5 MG TAB PO PRN (11:40)
[2022-11-13] MEDS: LIDOCAINE 2% JELLY 5 ML TUBE EXT PRN ×2 (11:41→19:12)
--- NOTE | 2022-11-13 17:50 | Hospitalist Progress Note ---
Date of Service November 13, 2022 Assessment & Plan (1) Acute retention of urine: Plan: 67 yo male PMHx BPH, HLD, TIA, HTN, s/p prostatectomy on October 30 at [place] presents with hematuria. S/p cystoscopy with the transurethral laser enucleation of his prostate gland 10/26/2022. Presents with leukocytosis and tachycardia. -UA appears infectious -urine and blood cultures pending -continue rocephin empirically. Urine cx pending. -wallace in place with continuous bladder irrigation -Heart healthy diet -urology following (2) Hematuria: Plan: see above Urology following and irrigating (3) Acute UTI (urinary tract infection): Plan: -UA appears infectious -given 1 dose rocephin in ED. Will cont. rocephin empirically. Urine cx pending. -blood and urine cx pending (4) Elevated prostate specific antigen (PSA): Plan: S/P cystoscopy with the transurethral laser enucleation of his prostate gland 10/26/2022. (5) High cholesterol: Plan: chronic and stable continue Atorvastatin 80mg (6) Hypertension: Plan: chronic and stable continue lisinopril and metoprolol Restart tonight since starting heart healthy diet Admission and Anticipated Discharge Date Admission Date: November 13, 2022 Subjective Patient seen and examined at bedside this afternoon. Wallace catheter was exchanged and upsized to a [address] Wallace early this AM. Patient awake and resting in bed and denies any current complaints Review of Systems Review of Systems: Patient complained of discomfort at his meatus. He denies any abdominal pain, nausea, vomiting, flank pain. He denies any chest pain, SOB or dyspnea, fevers, chills. Physical Exam Constitutional: WD/WN, vitals as above Neck: trachea midline, no thyromegaly Respiratory: normal respiratory effort, lungs clear to auscultation Cardiovascular: Rate/Rhythm: regular rate Extremities: no calf tenderness and no edema Gastrointestinal (Abdomen): normal bowel sounds, soft, nontender, no hepatosplenomegaly Psychiatric: A+Ox3, euthymic affect Results & Data Results & Data Vital Signs (Past 12 Hours) Vital Signs Temp Pulse Pulse Resp BP BP Pulse Ox 11/13/22 14:45 36.8 C 75 14 131/64 98 11/13/22 10:32 36.9 C 83 18 158/74 H 98 11/13/22 07:52 36.4 C L 68 18 122/22 L 96 11/13/22 06:58 36.8 C 81 18 118/63 97 O2 Del Method 11/13/22 14:45 Room Air 11/13/22 10:32 Room Air 11/13/22 07:52 Room Air 11/13/22 06:58 Room Air Laboratory Results Abnormal lab results 11/13/22 11/13/22 11/13/22 Range/Units 00:23 01:39 01:39 WBC 19.85 H (4.8-10.8) K/ul RBC 3.62 L (4.70-6.10) M/uL Hgb 11.0 L (14.0-18.0) g/dl Hct 33.3 L (42.0-52.0) % RDW Std Deviation 46.7 H (36.4-46.3) fL Plt Count 462 H (130-400) K/uL MPV 9.0 L (9.4-12.4) fL Neut # (Auto) 17.93 H (1.40-6.50) K/uL Lymph # (Auto) 0.78 L (1.2-3.4) K/uL Fountain # (Auto) 0.93 H (0.11-0.59) K/uL Sodium 134 L (136-145) mmol/L BUN 28 H (6-23) mg/dl Creatinine 1.78 H (0.6-1.4) mg/dl Glucose 148 H (70-99(Fasting)) mg/dl Urine Appearance Turbid A (Clear) Urine Protein 3+ H (Negative) Urine Blood 3+ H (Negative) Urine Nitrite Positive A (Negative) Urine Bilirubin 1+ H (Negative) Ur Leukocyte Esterase 1+ H (Negative) Urine RBC >30 H (0-4) /hpf Urine WBC >30 H (0-5) /hpf PG Care Time/CCT Total # of Minutes Spent Total Time Spent with Patient: Total time spent is greater than 50% in coordination of care (as documented) at patient's floor/unit and/or counseling patient: Coding Level of Care Code 56864 SUB INP/OBS CARE 2/35MIN Diagnoses Acute retention of urine R33.8 Hematuria R31.9 Acute UTI (urinary tract infection) N39.0 Elevated prostate specific antigen (PSA) R97.20 High cholesterol E78.00 Hypertension I10
[2022-11-13] MEDS ORDERED: CIPROFLOXACIN / D5W 400 MG/200 ML BAG IV SCH (18:00)
[2022-11-13] MEDS: METOPROLOL SUCC 25MG EXT REL TAB PO SCH (21:22)
[2022-11-14] MEDS: OXYBUTYNIN CHLORIDE 5 MG TAB PO PRN (01:39)
[2022-11-14] MEDS: LIDOCAINE 2% JELLY 5 ML TUBE EXT PRN ×2 (01:41→11:56)
[2022-11-14] MEDS: SODIUM CHLORIDE 0.9% 1000ML 1,000 ML IV SCH (06:48)
[2022-11-14 06:50] LABS: Hematocrit (blood only) 29.6 % (42.0-52.0); Hemoglobin 9.6 g/dl (14.0-18.0); Mean Corpuscular Hemoglobin 29.9 pg (25.0-34.0); Mean Corpuscular Hgb Conc 32.4 g/dL (32.0-36.0); Mean Corpuscular Volume 92.2 fL (80.0-100.0); Mean Platelet Volume 9.1 fL (9.4-12.4); Platelet Count 326 K/uL (130-400); RDW Coefficient of Variation 14.1 % (11.5-14.5); RDW Standard Deviation 48.2 fL (36.4-46.3); Red Blood Count 3.21 M/uL (4.70-6.10); White Blood Count 8.21 K/ul (4.8-10.8)
[2022-11-14 07:05] LABS: BUN Creatinine Ratio 16.6 (10-20); Calcium 8.1 mg/dl (8.6-10.3); Creatinine Clr Calc Pharmacy 59.5 ml/min; Est GFR (African American) 56.9 ml/min; Est GFR (Non-African American) 49.1 ml/min; Potassium 4.6 mmol/L (3.5-5.1)
[2022-11-14] MEDS: lisinopril 20 MG TAB PO SCH (08:25)
--- NOTE | 2022-11-14 11:01 | Urology Progress Note ---
Date of Service November 14, 2022 Assessment & Plan (1) Hematuria: Plan: Not much active bleeding at this point. We discussed that catheter could be removed for voiding trial and he was amenable to this plan. As long as he is able to void, he would be reasonable for discharge home this afternoon. Since urine culture is still pending, would recommend empiric antibiotics, i.e. Bactrim for ~5 days. (2) Acute retention of urine: Plan we discussed post-op / post-catheter expectations, some bleeding is to be expected. as long as he is able to void, he can try to stay well hydrated and continue to monitor. Admission and Anticipated Discharge Date Admission Date: November 13, 2022 Subjective Feeling well this morning No issues with CBI overnight, did not require hand irrigation CBI clamped in the morning, minimal blush by mid-day. Hand irrigation removed small clots but no significant burden and not much active bleeding. Wallace catheter was removed ~11:50 for voiding trial. Review of Systems Review of Systems: No fevers or chills Gastrointestinal: No abdominal pain Physical Exam Physical Exam: Well-appearing, NAD Genitourinary: wallace clamped in the AM, removed mid-day. Results & Data Vital Signs (Past 12 Hours) Vital Signs Temp Pulse Resp BP Pulse Ox O2 Del Method 11/14/22 07:19 36.6 C 85 18 136/76 95 Room Air PG Care Time/CCT Total # of Minutes Spent Total Time Spent with Patient: Total time spent is greater than 50% in coordination of care (as documented) at patient's floor/unit and/or counseling patient: Coding Level of Care Code 96364 SUB INP/OBS CARE 2/35MIN Diagnoses Hematuria R31.9 Acute retention of urine R33.8 Time Spent (min) 45
--- NOTE | 2022-11-14 16:06 | Hospitalist Progress Note ---
Date of Service November 14, 2022 Assessment & Plan (1) Acute blood loss anemia: Plan: Hb 15 in Aug 2022 then, was 11 upon presentation here on 11/13/22 now 9.6 c/w acute blood loss anemia from hematuria patient agreeable to IV venofer will give 300mg IV x 1 then repeat tomorrow check b12/folate in am for completeness diet as tolerated (2) Acute retention of urine: Plan: patient underwent cystoscopy with transurethral laser enucleation of his prostate gland on 10/26/2022 at [facility]. in addition to urinary retention he presented here on 11/13 with gross hematuria. Wallace placed, CBI then initiated with improvement in hematuria. Wallace now removed and he is spontaneously voiding. Urine cx noted to be negative. App[place] [facility] [place] [facility] [place]. (3) Hematuria: Plan: see above resolved s/p 3-way wallace with CBI yesterday and today (4) Acute UTI (urinary tract infection): Plan: suspected, but urine cx negative (5) Elevated prostate specific antigen (PSA): Plan: S/P cystoscopy with the transurethral laser enucleation of his prostate gland 10/26/2022 - [facility] (6) High cholesterol: Plan: continue Atorvastatin 80mg daily (7) Hypertension: Plan: controlled continue lisinopril and metoprolol (8) BPH (benign prostatic hyperplasia): (9) Irregular heart rhythm: Plan: very irregular on exam obtained 12-lead EKG NSR with frequency ectopy no evidence of a.fib patient has seen [facility] in the past in [place] for his murmur Plan hopefully home tomorrow Admission and Anticipated Discharge Date Admission Date: November 13, 2022 Subjective wallace catheter was removed this am and since that time he has been able to spontaneously void he feels tired yesterday he felt shaky when he was trying to eat denies dizziness denies pain in any location Review of Systems Review of Systems: gen - no fevers, eating well cv - no chest pain or palpitations; states he has a murmur lungs - no cough or dyspnea or ALVAREZ GI - no abd pain, nausea, vomiting Physical Exam Physical Exam: gen - NAD, pleasant skin - mild pallor neck - no JVD heart - irregular, s1 s2, 1-2/6 TAMARA LSB lungs - CTA b/l abd - soft NT ND BS+ ext - no edema, pulses 2+ b/l Results & Data Results & Data Vital Signs (Past 12 Hours) Vital Signs Temp Pulse Resp BP Pulse Ox O2 Del Method 11/14/22 15:28 36.5 C 75 18 131/72 96 Room Air 11/14/22 07:19 36.6 C 85 18 136/76 95 Room Air Laboratory Results Laboratory Results - last 48 hr 11/14/22 11/14/22 05:50 05:50 WBC 8.21 RBC 3.21 L Hgb 9.6 L Hct 29.6 L MCV 92.2 MCH 29.9 MCHC 32.4 RDW Std Deviation 48.2 H RDW Coeff of Bhargav 14.1 Plt Count 326 MPV 9.1 L Sodium 140 Potassium 4.6 Chloride 110 H Carbon Dioxide 25 Anion Gap 5 BUN 24 H Creatinine 1.45 H D Est Cr Clr Drug Dosing 59.5 Est GFR ( Amer) 56.9 Est GFR (Non-Af Amer) 49.1 BUN/Creatinine Ratio 16.6 Glucose 92 Calcium 8.1 L Vitamin B12 Folate PG Care Time/CCT Total # of Minutes Spent Total Time Spent with Patient: Total time spent is greater than 50% in coordination of care (as documented) at patient's floor/unit and/or counseling patient: Coding Level of Care Code 67219 SUB INP/OBS CARE 2/35MIN Diagnoses Acute blood loss anemia D62 Acute retention of urine R33.8 Hematuria R31.9 Acute UTI (urinary tract infection) N39.0 Elevated prostate specific antigen (PSA) R97.20 High cholesterol E78.00 Hypertension I10 BPH (benign prostatic hyperplasia) N40.1; R33.8 Lower urinary tract symptom detail: urinary retention Lower urinary tract symptom presence: symptoms present Irregular heart rhythm I49.9 (8) BPH (benign prostatic hyperplasia) Lower urinary tract symptom detail: urinary retention Lower urinary tract symptom presence: symptoms present Qualified Code(s): N40.1 - Benign prostatic hyperplasia with lower urinary tract symptoms; R33.8 - Other retention of urine
[2022-11-14] MEDS ORDERED: IRON SUCROSE 300 MG in SODIUM CHLORIDE 0.9% 250 ML IV ONE (16:30)
--- NOTE | 2022-11-14 19:46 | Billing Data ---
Date of Service November 14, 2022 Coding Level of Care Code 51632 INT INP/OBS CARE
[2022-11-14] MEDS: METOPROLOL SUCC 25MG EXT REL TAB PO SCH (20:37)
[2022-11-15 06:50] LABS: Hemoglobin 9.2 g/dl (14.0-18.0); Mean Corpuscular Hemoglobin 30.4 pg (25.0-34.0); Mean Corpuscular Hgb Conc 32.9 g/dL (32.0-36.0); Mean Corpuscular Volume 92.4 fL (80.0-100.0); Platelet Count 284 K/uL (130-400); RDW Standard Deviation 47.8 fL (36.4-46.3); Red Blood Count 3.03 M/uL (4.70-6.10); White Blood Count 6.05 K/ul (4.8-10.8)
[2022-11-15 07:03] LABS: BUN Creatinine Ratio 16.4 (10-20); Creatinine Clr Calc Pharmacy 67.4 ml/min; Est GFR (African American) 66.2 ml/min; Est GFR (Non-African American) 57.1 ml/min; Potassium 4.1 mmol/L (3.5-5.1)
--- NOTE | 2022-11-15 08:15 | Electrocardiogram Report ---
Test Reason : Blood Pressure : / mmHG Vent. Rate : 082 BPM Atrial Rate : 082 BPM P-R Int : 146 ms QRS Dur : 092 ms QT Int : 390 ms P-R-T Axes : 136 205 153 degrees QTc Int : 455 ms Suspect arm lead reversal, interpretation assumes no reversal Unusual P axis, possible ectopic atrial rhythm with Premature atrial complexes Right superior axis deviation Abnormal ECG When compared with ECG of 26-OCT-2015 11:42, Lead reversal present Ectopic atrial rhythm has replaced Sinus rhythm Criteria for Inferior infarct are no longer Present Confirmed by Dioni Rodriguez [id number]) on 11/15/2022 8:15:25 AM Referred By: REFERRED SELF Confirmed By:Dioni Rodriguez
[2022-11-15] MEDS: lisinopril 20 MG TAB PO SCH (08:45)
[2022-11-15] MEDS ORDERED: IRON SUCROSE 300 MG in SODIUM CHLORIDE 0.9% 250 ML IV ONE (08:45)
[2022-11-15] MEDS ORDERED: CYANOCOBALAMIN (B-12) 500 MCG TABLET PO SCH (09:00)
--- NOTE | 2022-11-15 09:50 | Urology Progress Note ---
Date of Service November 15, 2022 Assessment & Plan (1) Hematuria: Plan: He passed his voiding trial on 11/14/2022. For now we will keep him catheter free. I expect that hematuria will continue to clear as time goes on. I do not think there is significant active bleeding at this point. I recommended that he stay well-hydrated to keep the urine dilute. Since urine culture did not identify a singular organism, would recommend empiric antibiotics, i.e. Bactrim for ~5 days. He remains hemodynamically stable. From the hematuria perspective, I think he is appropriate for discharge, but defer to hospitalist team with respect to comorbidities. (2) Acute retention of urine: Plan we reviewed post-op / post-catheter expectations, some bleeding is to be expected. as long as he is able to void, he can try to stay well hydrated and continue to monitor. Admission and Anticipated Discharge Date Admission Date: November 13, 2022 Subjective Feeling well this morning Passed voiding trial on 11/14/2022, has voided multiple times since then. Still some blood in the urine with occasional clots, but emptying well. He is tolerating a diet and ambulating without any issues Hemoglobin was somewhat decreased on labs, reports that he was given some iron supplementation yesterday. Labs reviewed: 11/15/22: Hemoglobin 9.2, was 9.6 yesterday Creatinine improving (1.28 down from 1.78 previously) Blood cultures from 11/13 negative, urine culture identified moderate counts of 3 organisms. Review of Systems Review of Systems: Denies fevers or chills Physical Exam Physical Exam: Well-appearing, NAD Genitourinary: No Hickman catheter in place, voiding some blood-tinged urine Results & Data Vital Signs (Past 12 Hours) Vital Signs Temp Pulse Resp BP Pulse Ox O2 Del Method 11/15/22 09:44 36.9 C 78 16 147/75 H 96 Room Air 11/15/22 07:31 36.7 C 65 20 130/79 97 Room Air PG Care Time/CCT Total # of Minutes Spent Total Time Spent with Patient: Total time spent is greater than 50% in coordination of care (as documented) at patient's floor/unit and/or counseling patient: Coding Level of Care Code 99082 SUB INP/OBS CARE 09/09MIN Diagnoses Hematuria R31.9 Acute retention of urine R33.8
--- NOTE | 2022-11-15 11:56 | Discharge Summary ---
Date of Service date of admission - November 13, 2022 date of discharge - November 15, 2022 Admission HPI Per Admitting Provider 67 yo male PMHx BPH, HLD, TIA, HTN, s/p prostatectomy on October 26 at [place] presents with hematuria. Of note, after his surgery, he passed voiding trial a week later. Since surgery he had been doing well until earlier today when he urinated he noticed blood. Now unable to urinate on his own. He did feel a bit dizzy like he might pass out on his way here but otherwise denies fevers, fatigue, chest pain, sob, abd pain, N/V/D, constipation, dysuria, back pain. Principal Diagnosis 1. gross hematuria 2. acute blood loss anemia 3. acute kidney injury 4. acute urinary retention 5. recent prostate surgery - [facility] Discharge Exam gen - NAD, looks good skin - mild pallor neck - no JVD heart - irregular (extra beats), s1 s2, 1-2/6 TAMARA LSB lungs - CTA b/l abd - soft NT ND BS+ ext - no edema, pulses 2+ b/l psych - a/o x 3 Discharge Data Allergies Allergy/AdvReac Type Severity Reaction Status Date / Time No Known Allergies Allergy Unknown ` Verified 11/13/22 00:36 Consultations [facility] Procedures Performed IV venofer x 2 infusions Continuous Bladder Irrigation for hematuria Hospital Course (1) Acute retention of urine: Patient underwent cystoscopy with transurethral laser enucleation of his prostate gland on 10/26/2022 at [facility]. He presented here with gross hematuria and urinary retention. He required placement of 3-way wallace and continuous bladder irrigation. Hematuria resolved and wallace was removed on 11/14/22. He had resolution of his hematuria prior to discharge. He was adequately voiding prior to discharge. He was seen by [facility] who provided marcus management recommendations for his urinary tract issues. Blood/urine cultures were negative while here. Exact cause of hematuria was uncertain. However, it was presumed to be due to the recent surgery on his prostate. Repeat cystoscopy was not pursued during this hospitalization. He will need follow-up with his primary urologist, Dr González Miranda - [facility] in [place] - shortly after discharge due to these issues. (2) Hematuria: see above in #1 s/p 3-way wallace with CBI after discontinuation of his wallace and CBI he was observed for about 24 hours his hematuria was largely resolved by discharge although UTI was suspected early in the stay his urine culture was negative as a precautionary measure he was sent home on 5 days of oral keflex 500mg BID HE WAS COUNSELED TO STOP BABY ASPIRIN USE AND AVOID ALL FORMS OF NSAIDS (3) Acute blood loss anemia: Hemoglobin was 15 in Aug 2022 Was 11 upon presentation here on 11/13/22 Now 9.2 at time of discharge on 11/15/22 Consistent with acute blood loss anemia from hematuria, recent surgery, and blood draws s/p Venofer IV x 2 doses while here May benefit from a 3rd dose as an outpatient Checked b12/folate levels for completeness - B12 level was 325, folate was wnl Asked him to take 1000mcg of B12 daily for about 6 months He will need a repeat CBC within 7 days of discharge to ensure stability (4) DORENE (acute kidney injury): peak Cr 1.7 discharge Cr 1.2 DOREEN was 2nd to obstruction (5) Acute UTI (urinary tract infection): suspected, but urine cx returned negative discharged on 5-day course of PO keflex 500mg BID as precautionary measure, however (6) Elevated prostate specific antigen (PSA): S/P cystoscopy with transurethral laser enucleation of his prostate gland 10/26/2022 - [facility] (7) High cholesterol: continue Atorvastatin 80mg daily (8) Hypertension: controlled continue lisinopril and metoprolol (9) BPH (benign prostatic hyperplasia): s/p surgery on prostate 10/26/22 (10) Irregular heart rhythm: very irregular on exam obtained 12-lead EKG NSR with frequency ectopy seen no evidence of a.fib patient has seen [facility] in the past in [place] due to the presence of a murmur and was told the murmur was benign Total Time Total Time Spent Total Time Spent (In Minutes): 35 Discharge Plan Discharge Items Patient Disposition: Home - Self-Care Reason For Visit: HEMATURIA Discharge Diagnosis: 1. hematuria (blood in urine) - improved 2. anemia (low red blood cells) - discharge hemoglobin 9.2; iron infusion x 2 given 3. recent prostate surgery 4. BPH (benign prostatic hypertrophy) 5. hypertension Activity: As commented below Activity Comment: Follow any instructions about activity given by your surgeon at [facility] Lifting Comment: Follow any instructions about lifting given by your surgeon at [facility] Exercise/Sports: Wait until after follow-up appointment Non-emergency contact: Primary Care Provider Call non-emergency contact if: you have any medication questions, your symptoms worsen, your pain is unusual for you, your pain is concerning for you and you have a fever Follow-up/Referrals: González Miranda MD [Outside Practitioners] - (call his office on 11/16/22, to schedule a follow-up appointment; be sure to tell his office you were hospitalized at [facility] for hematuria) Gillian Puckett CRNP [Primary Care Provider] - (1 week for recheck of blood counts) Diet: Heart Healthy Addtl Attending Provider Instructions: Mr Belle, You were hospitalized due to severe hematuria and difficulty voiding. You were catheterized with a wallace and continuous bladder irrigation was started to help clear the bleeding. [facility] was consulted for management in your care. Your wallace catheter was removed on 11/14/22. Following such you have been able to void adequately. The bleeding has improved. There was initial concern for urinary infection but your urine culture was negative (and blood cultures were negative as well). You have moderate anemia. Anemia is when your red blood cells are low. You had a hemoglobin of about 15 three months ago. It is now 9.2 at time of discharge. We gave you 2 runs of IV iron for this problem. We checked your vitamin B12 level - it was low-normal at 325. Folate level was normal. The anemia is likely due to the bleeding you have experienced in your urinary tract, blood draws, recent surgery, etc. Recommendations - 1. cephalexin antibiotic - 500mg twice daily x 5 days, first dose when you arrive home. This is for prevention of urinary tract infection. 2. gxlv-[id number] vitamin B12 - 1000mcg (1mg) once daily x 6 months. 3. please see your family doctor within 1 week. Ask to have a repeat CBC as well as "iron studies." If your iron levels are still low they may recommend an additional run of IV iron as an outpatient. Please also have your "BMP" repeated (this is your kidney function level and electrolytes) at the same time. 4. see your urologist in [place] within the next week. Please call his office on 11/16/22 to schedule this follow-up appointment. 5. TYLENOL IS OK FOR PAIN. This will not cause or contribute to bleeding. You can take 1000mg of usso-vkg-okxrluc tylenol every 6 hours as needed, max 3000mg in 24 hours. 6. Please HOLD your daily aspirin. Do not take any nnph-zgz-twefndv motrin, ibuprofen, naprosyn, alleve, etc. Return to [facility] if - * you have fevers over 100 degrees * you have inability to pass your urine * you have severe urinary pain * you see large amounts of blood in your urine again * you have significant abdominal pain * any other concerns It was our pleasure to care for you! -Dr Wills Pending Studies at Discharge: Yes Studies:: blood cultures, but thus far negative (no bloodstream infection) Stand-Alone Forms: My [facility], Smoking Cessation Medications and DC Order Prescriptions: New cephalexin 500 mg capsule 500 mg PO BID 5 Days Qty: 10 0RF Rx Instructions: start 11/15/22. cyanocobalamin (vitamin B-12) 1,000 mcg capsule 1,000 mcg PO DAILY Qty: 90 1RF Rx Instructions: take for 6 months. Purchase lhhw-nkh-zipimhs. Continued atorvastatin 80 mg tablet 80 mg PO HS magnesium 250 mg Tablet 250 mg PO DAILY PRN (Reason: Leg Spasm) metoprolol succinate 25 mg tablet extended release 24 hr 12.5 mg PO HS lisinopril 20 mg tablet 20 mg PO DAILY Discontinued aspirin 81 mg Tablet,Delayed Release (/Ec) 81 mg PO HS Discharge Orders: Discharge Order (Routine); Ordered 11/15/22 Ordered By: Tab Kemp/Other Patient Handouts: Eating Heart-Healthy Foods Admission Data Admit Date/Time: 11/13/22 03:01 Attending Provider: Tab Wills Admit Provider: Con Pitt Primary Care Provider: Gillian Puckett Other Providers: Taran Vines ; Bentley Wheat ; Anuj Nash Other Interventions: Discharge Summary Assessment (RN) Last Done: 11/15/22 12:04 Coding Level of Care Code 35999 INP/OBS DISCH >30 MIN Diagnoses Acute retention of urine R33.8 Hematuria R31.9 Acute blood loss anemia D62 DOREEN (acute kidney injury) N17.9 Acute UTI (urinary tract infection) N39.0 Elevated prostate specific antigen (PSA) R97.20 High cholesterol E78.00 Hypertension I10 BPH (benign prostatic hyperplasia) N40.1; R33.8 Lower urinary tract symptom detail: urinary retention Lower urinary tract symptom presence: symptoms present Irregular heart rhythm I49.9
== END 2022-11-15 13:11 | disposition home or self-care (01) | DRG 690 ==
LOC: ED 23:57 → 3W 11-13 03:01 → SUATTDRO 11-13 03:01 → 3W 11-13 06:01

== ENCOUNTER 2022-11-15 20:58 | Inpatient (IN) ==
[2022-11-15 21:38] LABS: Appearance Urine Cloudy (Clear); Bilirubin Urine Negative (Negative); Blood Urine 3+ (Negative); Color Urine Red; Glucose Urine UA 1+ (Negative); Ketones Urine Negative (Negative); Leukocyte Esterase Urine Negative (Negative); Nitrite Urine Negative (Negative); Protein Urine 3+ (Negative); Urobilinogen Urine Negative (Negative); pH Urine 8.5 (4.5-7.5)
[2022-11-15 21:47] LABS: Bacteria Urine 1+ (Negative); Hyaline Casts Urine 0-5 /lpf (0-5); RBC Urine >30 /hpf (0-4); WBC Urine >30 /hpf (0-5)
[2022-11-15] MEDS ORDERED: cefTRIAXone SODIUM 2,000 MG/70 ML BAG IV STA (21:57)
--- NOTE | 2022-11-15 21:58 | Emergency Department Note ---
History of Present Illness General Chief complaint: Hematuria Stated complaint: HEMATURIA Time Seen by Provider: 11/15/22 21:24 History of Present Illness This 67 year old male PMHx BPH, HLD, TIA, HTN, s/p prostatectomy on October 26 at [place] presents with hematuria. Patient was discharged earlier today after being admitted for urinary retention with UTI and hematuria. Patient states once he got home he started peeing blood again and then he was back in urinary retention. Patient states he did stop multiple times on his way over here because he kept on having to urinate blood. Patient denies chest pain, dyspnea, fevers, flulike illness. Home Medications Medication Instructions Recorded Confirmed Type magnesium 250 mg tablet 250 mg PO DAILY PRN Leg Spasm 02/15/21 11/15/22 History metoprolol succinate 25 mg 12.5 mg PO HS 02/15/21 11/15/22 History tablet,extended release 24 hr atorvastatin 80 mg tablet 80 mg PO HS 09/11/22 11/15/22 History lisinopril 20 mg tablet 20 mg PO DAILY 11/13/22 11/15/22 History cephalexin 500 mg capsule 500 mg PO BID 5 days #10 caps 11/15/22 11/15/22 Rx cyanocobalamin (vitamin B-12) 1,000 mcg PO DAILY #90 caps 11/15/22 11/15/22 Rx 1,000 mcg capsule Allergies Allergy/AdvReac Type Severity Reaction Status Date / Time No Known Allergies Allergy Unknown ` Verified 11/13/22 00:36 Past Med/Surg History Medical History Elevated prostate specific antigen (PSA) Hematuria High cholesterol Hypertension TIA (transient ischemic attack) Surgical History No pertinent past surgical history Social History Smoking Status: Never smoker Second Hand Exposure: No; Hx Alcohol Use: Yes Alcohol type: wine Hx Substance Use: No Preferred Language: Haitian Communication Ability: Effective Manager Garage Required: No Beliefs That Will Affect Care: None Current Living Situation: Alone Feels Safe at Home: Yes Assistive Devices: Contacts Review of Systems A total of 10 systems reviewed and were otherwise negative Physical Exam Vital Signs Vital Signs - 24 hr 04/02/23 21:04 11/15/22 22:56 Temperature 36.5 C Temperature Source Temporal Artery Scan Pulse Rate 102 H Pulse Rate [Apical] 89 Respiratory Rate 20 20 Respiratory Effort / Characteristics Non-Labored Non-Labored Respiratory Depth Normal Blood Pressure 117/69 Blood Pressure [Right Arm] 117/61 Blood Pressure Mean 85 Blood Pressure Mean [Right Arm] 79 Pulse Oximetry 100 95 Oxygen Delivery Method Room Air Room Air Sepsis Recent Fever Within 48 Hours No Sepsis New/Unexplained Change in Mental Status N/A Sepsis Action Taken by Nursing No Action Required VITALS: Vitals are noted on the nurse's note and reviewed by myself. Vital signs stable. GENERAL: Pleasant gentleman who appears uncomfortable, in no acute distress, nondiaphoretic, well-developed well-nourished. SKIN: The skin was without rashes, erythema, edema, or bruising. There is no tenting of the skin. Capillary reflex less than 2 seconds. HEAD: Normocephalic atraumatic. EARS: External auditory canals clear, EYES: Pupils equal round and reactive to light and accommodation. Conjunctivae without injection, sclerae without icterus. Extraocular movements intact. NOSE: Patent, turbinates without inflammation or discharge. MOUTH: Mucous membranes moist. Pharynx without erythema or exudate. Uvula midline. Airway patent. Tongue does not deviate. NECK: Supple without nuchal rigidity. No lymphadenopathy. No thyromegaly. Cervical spine is nontender. No JVD. HEART: Regular rate and rhythm LUNGS: Clear to auscultation bilaterally without wheezes, rales or rhonchi. No retractions or accessory muscle use. ABDOMEN: Positive bowel sounds x 4. Normal tympanic percussion. Soft, nontender, without masses or organomegaly. Tapia sign negative. No guarding or rebound tenderness. No CVA tenderness exam: Normal male genitalia, blood at the tip of the penis from the urethra MUSCULOSKELETAL: No muscle atrophy, erythema, or edema noted. NEURO: Patient was alert and oriented to person place and time. Normal sensation to light and sharp touch. No focal neurological deficits. Course Administered Medications Discontinued Medications Ceftriaxone Sodium (Rocephin) 2,000 mg in 70 mls @ 140 mls/hr IV NOW STA Stop: 11/15/22 22:26 Last Infusion: 11/15/22 22:46 Dose: 0 mls/hr Documented By: Admin: 11/15/22 22:31 Dose: 140 mls/hr Documented By: JOSUE Medical Decision Making Medical Records Attestation: I reviewed the patient's medical records. Home Medications Current Medication List: was personally reviewed by me Laboratory Data Attestation: I reviewed the patient's lab results. 11/15/22 22:25 11/15/22 22:25 Lab Results 11/15/22 11/15/22 11/15/22 Range/Units 21:15 22:25 22:25 WBC 11.96 H (4.8-10.8) K/ul RBC 2.96 L (4.70-6.10) M/uL Hgb 8.8 L (14.0-18.0) g/dl Hct 26.7 L (42.0-52.0) % MCV 90.2 (80.0-100.0) fL MCH 29.7 (25.0-34.0) pg MCHC 33.0 (32.0-36.0) g/dL RDW Std Deviation 45.9 (36.4-46.3) fL RDW Coeff of Bhargav 14.1 (11.5-14.5) % Plt Count 349 (130-400) K/uL MPV 9.0 L (9.4-12.4) fL Immature Gran % (Auto) 1.0 % Neut % (Auto) 78.0 % Lymph % (Auto) 11.0 % Wilson % (Auto) 7.8 % Eos % (Auto) 1.6 % Baso % (Auto) 0.6 % Neut # (Auto) 9.34 H (1.40-6.50) K/uL Lymph # (Auto) 1.31 (1.2-3.4) K/uL Wilson # (Auto) 0.93 H (0.11-0.59) K/uL Eos # (Auto) 0.19 (0-0.50) K/uL Baso # (Auto) 0.07 (0-0.2) K/uL Immature Gran # (Auto) 0.12 (0.01-0.20) K/uL Sodium 137 (136-145) mmol/L Potassium 4.0 (3.5-5.1) mmol/L Chloride 106 (98-107) mmol/L Carbon Dioxide 23 (21-32) mmol/L Anion Gap 8 (3-11) BUN 30 H (6-23) mg/dl Creatinine 1.68 H D (0.6-1.4) mg/dl Est Cr Clr Drug Dosing 44.8 ml/min Est GFR ( Amer) 47.7 ml/min Est GFR (Non-Af Amer) 41.1 ml/min BUN/Creatinine Ratio 17.9 (10-20) Glucose 112 H (70-99(Fasting)) mg/dl Calcium 8.6 (8.6-10.3) mg/dl Total Bilirubin 0.4 (0.2-1.0) mg/dl AST 15 (13-39) U/L ALT 15 (7-52) U/L Alkaline Phosphatase 61 (34-104) U/L Total Protein 6.6 (6.0-8.3) gm/dl Albumin 3.7 (3.4-5.0) gm/dl Globulin 2.9 (2.5-4.0) gm/dl Albumin/Globulin Ratio 1.3 (0.9-2) Urine Color Red Urine Appearance Cloudy A (Clear) Urine pH 8.5 H (4.5-7.5) Ur Specific Lowell 1.020 (1.000-1.030) Urine Protein 3+ H (Negative) Urine Glucose (UA) 1+ H (Negative) Urine Ketones Negative (Negative) Urine Blood 3+ H (Negative) Urine Nitrite Negative (Negative) Urine Bilirubin Negative (Negative) Urine Urobilinogen Negative (Negative) Ur Leukocyte Esterase Negative (Negative) Urine RBC >30 H (0-4) /hpf Urine WBC >30 H (0-5) /hpf Ur Epithelial Cells 5-10 H (0-5) /lpf Urine Bacteria 1+ H (Negative) Hyaline Casts 0-5 (0-5) /lpf SARS-CoV-2, RNA, NAAT (NEGATIVE) Blood Type Antibody Screen 11/15/22 11/15/22 Range/Units 22:59 23:07 WBC (4.8-10.8) K/ul RBC (4.70-6.10) M/uL Hgb (14.0-18.0) g/dl Hct (42.0-52.0) % MCV (80.0-100.0) fL MCH (25.0-34.0) pg MCHC (32.0-36.0) g/dL RDW Std Deviation (36.4-46.3) fL RDW Coeff of Bhargav (11.5-14.5) % Plt Count (130-400) K/uL MPV (9.4-12.4) fL Immature Gran % (Auto) % Neut % (Auto) % Lymph % (Auto) % Wilson % (Auto) % Eos % (Auto) % Baso % (Auto) % Neut # (Auto) (1.40-6.50) K/uL Lymph # (Auto) (1.2-3.4) K/uL Wilson # (Auto) (0.11-0.59) K/uL Eos # (Auto) (0-0.50) K/uL Baso # (Auto) (0-0.2) K/uL Immature Gran # (Auto) (0.01-0.20) K/uL Sodium (136-145) mmol/L Potassium (3.5-5.1) mmol/L Chloride (98-107) mmol/L Carbon Dioxide (21-32) mmol/L Anion Gap (3-11) BUN (6-23) mg/dl Creatinine (0.6-1.4) mg/dl Est Cr Clr Drug Dosing ml/min Est GFR ( Amer) ml/min Est GFR (Non-Af Amer) ml/min BUN/Creatinine Ratio (10-20) Glucose (70-99(Fasting)) mg/dl Calcium (8.6-10.3) mg/dl Total Bilirubin (0.2-1.0) mg/dl AST (13-39) U/L ALT (7-52) U/L Alkaline Phosphatase (34-104) U/L Total Protein (6.0-8.3) gm/dl Albumin (3.4-5.0) gm/dl Globulin (2.5-4.0) gm/dl Albumin/Globulin Ratio (0.9-2) Urine Color Urine Appearance (Clear) Urine pH (4.5-7.5) Ur Specific Lowell (1.000-1.030) Urine Protein (Negative) Urine Glucose (UA) (Negative) Urine Ketones (Negative) Urine Blood (Negative) Urine Nitrite (Negative) Urine Bilirubin (Negative) Urine Urobilinogen (Negative) Ur Leukocyte Esterase (Negative) Urine RBC (0-4) /hpf Urine WBC (0-5) /hpf Ur Epithelial Cells (0-5) /lpf Urine Bacteria (Negative) Hyaline Casts (0-5) /lpf SARS-CoV-2, RNA, NAAT NEGATIVE (NEGATIVE) Blood Type O Positive Antibody Screen NEGATIVE Imaging Data Radiologist's Impression: Renal Ultrasound 11/15/22 23:04 Exam(s): US RENAL EXAM: US Retroperitoneal Limited, Renal CLINICAL HISTORY: Reason for exam: hematuria, retention. TECHNIQUE: Real-time limited ultrasound of the retroperitoneum with image documentation. COMPARISON: No relevant prior studies available. FINDINGS: Right kidney: Mild right hydronephrosis. The right kidney measures 9. 9 x 5.9 x 5 cm. No stones. Left kidney: Mild left hydronephrosis. The left kidney measures 9.7 x 5.5 x 5.2 cm. There is a 1.2 cm simple cyst in the left kidney. No follow-up is required. No stones. Bladder: The urinary bladder is decompressed by a Hickman catheter. There is unusual multilobular thickened appearance of the urinary bladder suggesting cystitis and/or bladder diverticula. IMPRESSION: Slight bilateral hydronephrosis. Thickened urinary bladder wall consistent with cystitis and/or chronic bladder outlet obstruction with bladder diverticula. Electronically signed by: Bhaskar Yousif MD 11/16/22 01:32 AM MDM Narrative Prior records reviewed and summarized as above. Triage Nursing notes reviewed. Additional history obtained from nurse. The patient's history was concerning for hematuria and urinary retention. Differential diagnosis: Etiologies such as obstruction, UTI, coagulopathy, bladder polyp, infection, retention, as well as others were entertained.. Physical examination: As above ER treatment provided: Bladder scan postvoid was reviewed and Hickman catheter was placed and three-way irrigation was initiated by nursing Patient started on Rocephin for possible UTI. Prior urine culture was reviewed On reassessment the patient felt better. Diagnostics interpreted by me: The labs Independently Interpreted by myself revealed urine concerning for infection sent for culture. Prior urine culture was reviewed. Slightly worsening anemia. Patient was typed and crossmatched. Blood consent on the chart if warranted and patient was consented Imaging studies: Ultrasound of the kidneys and bladder were reviewed as above. This is intimately interpreted by myself and concerning for possible cystitis with bilateral mild hydronephrosis and read by the radiologist. Consultation: A consultation was placed with the hospitalist. The case was discussed and diagnostics were reviewed. The patient was evaluated in the ER for further treatment. I spoke to urology Dr. Hamm and recommends Hickman with irrigation and admission with n.p.o. at midnight to medicine. This appears to be urinary tension with concerns for UTI and hematuria with acute kidney injury and worsening anemia. Bladder was irrigated. Patient was started on antibiotics. Prior urology reports were reviewed. Prior urine cultures were reviewed. Urology was consulted and recommends readmission with n.p.o. at midnight. Patient will be admitted to the medical service. Case was discussed with the admission team. Patient has slightly worsening anemia. Blood consent was filled out and patient consented if patient does require blo od. By the evaluation outlined above emergent etiologies such as pyelonephritis as well as others were deemed relatively unlikely. The pt informed about the findings as listed above. All questions were answered and pleased with the treatment. The chart was completed utilizing [employer] Speech voice recognition software. Grammatical errors, random word insertions, pronoun errors, and incomplete sentences are an occassional consequence of this system due to software limitations, ambient noise, and hardware issues. Any formal questions or concerns about the content, text, or information contained within the body of this dictation should be directly addressed to the physician pharmaceutical assistant for clarification. Impression & Plan Acute retention of urine, Hematuria, Acute UTI (urinary tract infection), Acute blood loss anemia, DOREEN (acute kidney injury) Discharge Plan Visit Data Chief Complaint: Hematuria Stated Complaint: HEMATURIA ED Provider: Johnny Anglin ED Midlevel Provider: Brenda Hein Discharge Problem: Acute retention of urine, Hematuria, Acute UTI (urinary tract infection), Acute blood loss anemia, DOREEN (acute kidney injury) Patient Disposition: Admitted As Inpatient Condition: Fair Discharge Instructions Interventions: ED Discharge Assessment Last Done: 11/16/22 01:02
[2022-11-15 22:48] LABS: Basophils # (auto) 0.07 K/uL (0-0.2); Basophils % (auto) 0.6 %; Eosinophils # (auto) 0.19 K/uL (0-0.50); Eosinophils % (auto) 1.6 %; Hematocrit (blood only) 26.7 % (42.0-52.0); Hemoglobin 8.8 g/dl (14.0-18.0); Immature Granulocytes # (auto) 0.12 K/uL (0.01-0.20); Lymphocytes # (auto) 1.31 K/uL (1.2-3.4); Mean Corpuscular Hemoglobin 29.7 pg (25.0-34.0); Mean Corpuscular Volume 90.2 fL (80.0-100.0); Monocytes # (auto) 0.93 K/uL (0.11-0.59); Monocytes % (auto) 7.8 %; Neutrophils # (auto) 9.34 K/uL (1.40-6.50); Platelet Count 349 K/uL (130-400); RDW Coefficient of Variation 14.1 % (11.5-14.5); RDW Standard Deviation 45.9 fL (36.4-46.3); Red Blood Count 2.96 M/uL (4.70-6.10); White Blood Count 11.96 K/ul (4.8-10.8)
[2022-11-15 23:02] LABS: Albumin Globulin Ratio 1.3 (0.9-2); Albumin Level 3.7 gm/dl (3.4-5.0); BUN Creatinine Ratio 17.9 (10-20); Bilirubin,Total 0.4 mg/dl (0.2-1.0); Calcium 8.6 mg/dl (8.6-10.3); Creatinine Clr Calc Pharmacy 44.8 ml/min; Est GFR (African American) 47.7 ml/min; Est GFR (Non-African American) 41.1 ml/min; Globulin 2.9 gm/dl (2.5-4.0); Total Protein 6.6 gm/dl (6.0-8.3)
--- NOTE | 2022-11-15 23:55 | History & Physical Report ---
Date of Service November 15, 2022 Assessment & Plan (1) Hematuria: (2) DOREEN (acute kidney injury): (3) Irregular heart rhythm: (4) Acute blood loss anemia: (5) Acute UTI (urinary tract infection): (6) Acute retention of urine: (7) BPH (benign prostatic hyperplasia): (8) High cholesterol: (9) Hypertension: Plan Gross hematuria with blood clots, acute urinary retention/bladder outlet obstruction- N.p.o. after midnight Continuous bladder irrigation Ceftriaxone 2 g IV daily Urology consulted and aware Acute kidney injury- Creatinine 1.68 upon admission, with baseline 1.28 Placed on NSS at 80 mils per hour Repeat laboratories in a.m. Acute blood loss anemia- Hemoglobin 8.8, with baseline 14.9 Hemoglobin at last admission ranged from 11.0-9.2 at the time of discharge, so overall no significant change since discharge Follow CBC with differential serially No indication for transfusion at this time Hyperlipidemia- Hold atorvastatin for now Hypertension- Continue metoprolol succinate 12.5 mg at bedtime Hold lisinopril due to acute kidney injury B12 deficiency- Hold 1000 mcg daily supplement for now History of Present Illness Chief Complaint: The patient presents to the emergency department with complaint of recurrent hematuria, clots and urinary blockage after being discharged to home earlier in the day today Primary Care Provider: CANDACE Dietz The patient is a 67-year-old male with a past medical history including gross hematuria status post prostate surgery, irregular heart rhythm, acute blood loss anemia, acute UTI, BPH, hypercholesterolemia, TIA, hypertension, and history of bronchitis. His most recent minded admission was from 11/13-11/15, after having had a similar set of symptoms, had a three-way Hickman placed with continuous bladder irrigation, had been found to have urinary tract infection and was discharged on Keflex. Prior to discharge, the patient passed a challenge for urinating, did so without bleeding, and was discharged to home. He reports that shortly after he got home, he had a recurrence of the bleeding, and reports having to stop 3 times in route to the hospital this evening, and was peeing blood each time. He denies any bladder pain, but does have pain at the tip of his penis when he urinates Allergies Allergy/AdvReac Type Severity Reaction Status Date / Time No Known Allergies Allergy Unknown ` Verified 11/13/22 00:36 Home Medications Medication Instructions Recorded Confirmed Type magnesium 250 mg tablet 250 mg PO DAILY PRN Leg Spasm 02/15/21 11/15/22 History metoprolol succinate 25 mg 12.5 mg PO HS 02/15/21 11/15/22 History tablet,extended release 24 hr atorvastatin 80 mg tablet 80 mg PO HS 09/11/22 11/15/22 History lisinopril 20 mg tablet 20 mg PO DAILY 11/13/22 11/15/22 History cephalexin 500 mg capsule 500 mg PO BID 5 days #10 caps 11/15/22 11/15/22 Rx cyanocobalamin (vitamin B-12) 1,000 mcg PO DAILY #90 caps 11/15/22 11/15/22 Rx 1,000 mcg capsule Past Med/Surg History Medical History Elevated prostate specific antigen (PSA) Hematuria High cholesterol Hypertension TIA (transient ischemic attack) Surgical History No pertinent past surgical history Social History Smoking Status: Never smoker Second Hand Exposure: No; Hx Alcohol Use: Yes Alcohol type: wine Hx Substance Use: No Preferred Language: Vietnamese Communication Ability: Effective Equipment Maintenance Supervisor Required: No Beliefs That Will Affect Care: None Current Living Situation: Alone Feels Safe at Home: Yes Assistive Devices: Contacts Review of Systems Review of Systems: The patient denies chest pain, palpitations, shortness of breath, dyspnea on e xertion, cough, lower extremity swelling, sore throat, fevers, chills, sweats, weight change, fatigue, nausea, vomiting, diarrhea , constipation, abdominal pain, pelvic pain, blood stool, dysuria, lightheadedness, dizziness, headache, memory loss, loss of consciousness, rash, imbalance, focal or generalized weakness, numbness or tingling in arms or legs, generalized arthralgias or myalgias, back or neck pain, or night sweats. The review of systems is otherwise negative other than for that already noted above, and at least 10 systems have been reviewed. Physical Exam Physical Exam: The patient is awake, alert and oriented 3, well developed and well nourished, normocephalic and atraumatic, lying in bed and in no acute distress. HEENT--PERRL, EOMI, mucous membranes and oropharynx normal. Neck--supple. No JVD. No bruits. Thyroid normal, trachea midline, no adenopathy. Heart--normal S1 and S2. No murmurs, rubs or gallops. Lungs--clear bilaterally, no respiratory distress, no accessory muscle use. Abdomen--normal bowel sounds and soft. Nontender. Nondistended, no hernias or masses, no organomegaly. Extremities--no cyanosis or clubbing. No edema. Dermatologic--normal skin turgor, normal color, no abnormal lymph nodes, no rash. Neurologic--cranial nerves II through XII grossly intact. Rheumatologic--normal range of motion. Psychiatric--normal affect. Results & Data Results & Data Vital Signs (Past 12 Hours) Vital Signs Temp Pulse Pulse Resp BP BP Pulse Ox 11/15/22 22:56 89 20 117/61 95 11/15/22 21:04 36.5 C 102 H 20 117/69 100 O2 Del Method 11/15/22 22:56 Room Air 11/15/22 21:04 Room Air Laboratory Results Laboratory Results WBC 11.96 K/ul (4.8-10.8) H 11/15/22 22:25 RBC 2.96 M/uL (4.70-6.10) L 11/15/22 22:25 Hgb 8.8 g/dl (14.0-18.0) L 11/15/22 22:25 Hct 26.7 % (42.0-52.0) L 11/15/22 22:25 MCV 90.2 fL (80.0-100.0) 11/15/22 22:25 MCH 29.7 pg (25.0-34.0) 11/15/22 22:25 MCHC 33.0 g/dL (32.0-36.0) 11/15/22 22:25 RDW Std Deviation 45.9 fL (36.4-46.3) 11/15/22 22:25 RDW Coeff of Bhargav 14.1 % (11.5-14.5) 11/15/22 22:25 Plt Count 349 K/uL (130-400) 11/15/22 22:25 MPV 9.0 fL (9.4-12.4) L 11/15/22 22:25 Immature Gran % (Auto) 1.0 % 11/15/22 22: Neut % (Auto) 78.0 % 11/15/22 22: Lymph % (Auto) 11.0 % 11/15/22 22:25 Banks % (Auto) 7.8 % 11/15/22 22: Eos % (Auto) 1.6 % 11/15/22 22: Baso % (Auto) 0.6 % 11/15/22: Neut # (Auto) 9.34 K/uL (1.40-6.50) H 11/15/22 22: Lymph # (Auto) 1.31 K/uL (1.2-3.4) 11/15/22 22: Banks # (Auto) 0.93 K/uL (0.11-0.59) H 11/15/22 22: Eos # (Auto) 0.19 K/uL (0-0.50) 11/15/22 22:25 Baso # (Auto) 0.07 K/uL (0-0.2) 11/15/22 22: Immature Gran # (Auto) 0.12 K/uL (0.01-0.20) 11/15/22 22:25 Sodium 137 mmol/L (136-145) 11/15/22 22:25 Potassium 4.0 mmol/L (3.5-5.1) 11/15/22 22: Chloride 106 mmol/L (98-107) 11/15/22 22:25 Carbon Dioxide 23 mmol/L (21-32) 11/15/22 22:25 Anion Gap 8 (3-11) 11/15/22 22:25 BUN 30 mg/dl (6-23) H 11/15/22 22:25 Creatinine 1.68 mg/dl (0.6-1.4) H D 11/15/22 22:25 Est Cr Clr Drug Dosing 44.8 ml/min 11/15/22 22:25 Est GFR ( Amer) 47.7 ml/min 11/15/22 22:25 Est GFR (Non-Af Amer) 41.1 ml/min 11/15/22 22:25 BUN/Creatinine Ratio 17.9 (10-20) 11/15/22 22:25 Glucose 112 mg/dl (70-99(Fasting)) H 11/15/22 22:25 Calcium 8.6 mg/dl (8.6-10.3) 11/15/22 22:25 Total Bilirubin 0.4 mg/dl (0.2-1.0) 11/15/22 22:25 AST 15 U/L (13-39) 11/15/22 22:25 ALT 15 U/L (7-52) 11/15/22 22:25 Alkaline Phosphatase 61 U/L (34-104) 11/15/22 22:25 Total Protein 6.6 gm/dl (6.0-8.3) 11/15/22 22:25 Albumin 3.7 gm/dl (3.4-5.0) 11/15/22 22:25 Globulin 2.9 gm/dl (2.5-4.0) 11/15/22 22:25 Albumin/Globulin Ratio 1.3 (0.9-2) 11/15/22 22:25 Urine Color Red 11/15/22 21:15 Urine Appearance Cloudy (Clear) A 11/15/22 21:15 Urine pH 8.5 (4.5-7.5) H 11/15/22 21:15 Ur Specific Sims 1.020 (1.000-1.030) 11/15/22 21:15 Urine Protein 3+ (Negative) H 11/15/22 21:15 Urine Glucose (UA) 1+ (Negative) H 11/15/22 21:15 Urine Ketones Negative (Negative) 11/15/22 21:15 Urine Blood 3+ (Negative) H 11/15/22 21:15 Urine Nitrite Negative (Negative) 11/15/22 21:15 Urine Bilirubin Negative (Negative) 11/15/22 21:15 Urine Urobilinogen Negative (Negative) 11/15/22 21:15 Ur Leukocyte Esterase Negative (Negative) 11/15/22 21:15 Urine RBC >30 /hpf (0-4) H 11/15/22 21:15 Urine WBC >30 /hpf (0-5) H 11/15/22 21:15 Ur Epithelial Cells 5-10 /lpf (0-5) H 11/15/22 21:15 Urine Bacteria 1+ (Negative) H 11/15/22 21:15 Hyaline Casts 0-5 /lpf (0-5) 11/15/22 21:15 SARS-CoV-2, RNA, NAAT NEGATIVE (NEGATIVE) 11/15/22 22:59 Code Status & VTE Plan Code Status Full code VTE Prophylaxis Plan VTE Prophylaxis will be ordered: Yes PG Care Time/CCT Total # of Minutes Spent Total Time Spent with Patient: Total time spent is greater than 50% in coordination of care (as documented) at patient's floor/unit and/or counseling patient: Coding Level of Care Code 02917 INT INP/OBS CARE 3/75MIN Diagnoses Hematuria R31.9 DOREEN (acute kidney injury) N17.9 Irregular heart rhythm I49.9 Acute blood loss anemia D62 Acute UTI (urinary tract infection) N39.0 Acute retention of urine R33.8 BPH (benign prostatic hyperplasia) N40.1; R33.8 Lower urinary tract symptom detail: urinary retention Lower urinary tract symptom presence: symptoms present High cholesterol E78.00 Hypertension I10 (7) BPH (benign prostatic hyperplasia) Lower urinary tract symptom detail: urinary retention Lower urinary tract symptom presence: symptoms present Qualified Code(s): N40.1 - Benign prostatic hyperplasia with lower urinary tract symptoms; R33.8 - Other retention of urine
[2022-11-16] MEDS ORDERED: ONDANSETRON INJ 2 MG/ML 2 ML VIAL IV PRN ×2 (01:22→11:22)
--- NOTE | 2022-11-16 01:34 | Ultrasound Report ---
Exam(s): US RENAL EXAM: US Retroperitoneal Limited, Renal CLINICAL HISTORY: Reason for exam: hematuria, retention. TECHNIQUE: Real-time limited ultrasound of the retroperitoneum with image documentation. COMPARISON: No relevant prior studies available. FINDINGS: Right kidney: Mild right hydronephrosis. The right kidney measures 9. 9 x 5.9 x 5 cm. No stones. Left kidney: Mild left hydronephrosis. The left kidney measures 9.7 x 5.5 x 5.2 cm. There is a 1.2 cm simple cyst in the left kidney. No follow-up is required. No stones. Bladder: The urinary bladder is decompressed by a Hickman catheter. There is unusual multilobular thickened appearance of the urinary bladder suggesting cystitis and/or bladder diverticula. IMPRESSION: Slight bilateral hydronephrosis. Thickened urinary bladder wall consistent with cystitis and/or chronic bladder outlet obstruction with bladder diverticula. Electronically signed by: Bhaskar Yousif MD 11/16/22 01:32 AM
[2022-11-16] MEDS: ACETAMINOPHEN 325 MG TAB PO PRN ×2 (02:00→09:54)
[2022-11-16] MEDS: traMADol HCL 50 MG TABLET PO PRN ×3 (02:00→15:40)
[2022-11-16] MEDS: SODIUM CHLORIDE 0.9% 1000ML 1,000 ML IV SCH ×2 (02:01→14:04)
[2022-11-16 07:00] LABS: Basophils # (auto) 0.07 K/uL (0-0.2); Basophils % (auto) 0.9 %; Eosinophils % (auto) 2.7 %; Hematocrit (blood only) 24.5 % (42.0-52.0); Hemoglobin 8.2 g/dl (14.0-18.0); Immature Granulocytes # (auto) 0.07 K/uL (0.01-0.20); Immature Granulocytes % (auto) 0.9 %; Lymphocytes # (auto) 1.47 K/uL (1.2-3.4); Lymphocytes % (auto) 19.9 %; Mean Corpuscular Hemoglobin 30.4 pg (25.0-34.0); Mean Corpuscular Hgb Conc 33.5 g/dL (32.0-36.0); Mean Corpuscular Volume 90.7 fL (80.0-100.0); Mean Platelet Volume 8.9 fL (9.4-12.4); Monocytes # (auto) 0.64 K/uL (0.11-0.59); Monocytes % (auto) 8.7 %; Neutrophils # (auto) 4.92 K/uL (1.40-6.50); Neutrophils % (auto) 66.9 %; Platelet Count 274 K/uL (130-400); RDW Coefficient of Variation 14.2 % (11.5-14.5); RDW Standard Deviation 46.1 fL (36.4-46.3); White Blood Count 7.37 K/ul (4.8-10.8)
[2022-11-16 07:07] LABS: Albumin Level 3.3 gm/dl (3.4-5.0); BUN Creatinine Ratio 18.7 (10-20); Calcium 7.9 mg/dl (8.6-10.3); Creatinine Clr Calc Pharmacy 61.2 ml/min; Est GFR (African American) 69.5 ml/min; Est GFR (Non-African American) 59.9 ml/min; Phosphorus 3.8 mg/dl (2.5-4.9)
[2022-11-16] MEDS ORDERED: LIDOCAINE 2% JELLY 5 ML TUBE EXT ONE (08:22)
--- NOTE | 2022-11-16 09:17 | Urology Consultation ---
Date of Consultation November 16, 2022 Assessment & Plan (1) Hematuria: (2) Acute retention of urine: (3) BPH (benign prostatic hyperplasia): Plan 67yo/M with BPH who recently underwent a HoLEP at [facility] on 10/26/22. Recently admitted from 11/13-11/15 for gross hematuria, urinary retention. Had a 3-way Hickman placed with CBI and treated with antibiotics for suspected UTI. Passed a voiding trial on 11/14/2022 and was voiding spontaneously with intermittent hematuria. Urine and blood cultures were negative. Discharged home on 11/15/2022 on Keflex x5 days. Returned yesterday evening with persistent hematuria and urinary retention. Afebrile and hemodynamically stable. Labs reviewed-no leukocytosis, hemoglobin 8.2, creatinine 1.23. Continue to trend. Urine and blood cultures from prior admission negative. Repeat urine culture pending. On IV ceftriaxone. 3-way Hickman catheter intact with CBI on slow drip. Continue to monitor. Titrate CBI as needed. Renal ultrasound 11/16 reviewed- Slight bilateral hydronephrosis; Thickened urinary bladder wall consistent with cystitis and/or chronic bladder outlet obstruction with bladder diverticula. Given his persistent hematuria, will plan to proceed to OR today for cystoscopy, clot evacuation, possible fulguration depending on findings. Risks and benefits to be reviewed with patient by Dr. Madden. OR notified. COVID test negative. Covered with scheduled IV ceftriaxone. Keep NPO. Continue supportive care and antibiotic therapy. Urology will follow. Greater than 75 minutes spent on chart review, assessment, planning, documentation, and coordination of care. Attending note: Independently assessed, examined, interviewed, and evaluated patient. Extensively reviewed options. Patient has recurrent episodes of gross hematuria. Has been tolerating continuous bladder irrigation as well as intermittent irrigation. Patient has continued to have bleeding issues. Had a HoLEP done at outlying facility. Continues to have considerable issues. Is very concerned and anxious about ongoing bleeding issues. Patient has considerable bladder outlet obstruction issues in the past. Has been undergoing hydration as well as IV antibiotics and close monitoring. Unsure of the exact source of bleed. Did discuss possible issues including bleeding from the wound bed. Discussed extensively different options including continued blood in the urine possibly due to clot within the bladder. Discussed possible options including clot evacuation. Patient's imaging was reviewed interpreted by myself. Patient's lab work was all reviewed. Vitals are currently stable with mild hypertension at 144/72. PSA in May 2022 was 6.16. Most recent creatinine was 1.23. White count is 7.37. Patient's COVID test was negative. Reviewed extensively options discussed concerns and issues. Has been coordinating with the hospice team as well as our nurse practitioners as well as the OR team in order to likely have the patient move forward with intervention. Patient is interested in proceeding with clot evacuation possible fulguration. Extensively reviewed options as well as risks and concerns. Will likely need catheter for short period time afterwards can likely transition off the catheter sooner rather than later in order to facilitate better healing. Plan for continuous bladder irrigation after the procedure Patient's complex medical and surgical history was reviewed and summarized above all imaging was reviewed interpreted by myself plans to continue to monitor the patient after the procedure moving forward History of Present Illness Reason for Consultation: Gross hematuria Attending Physician: Roel Guy MD History of Present Illness 67-year-old male with a history of BPH and recently underwent HoLEP procedure at [facility] on 10/26/2022 admitted with gross hematuria, urinary rete ntion. Recently admitted from 11/13-11/15 for gross hematuria, urinary retention. Had a 3-way Hickman placed with CBI. Treated with antibiotics for suspected UTI. Passed a voiding trial on 11/14/2022 and was voiding spontaneously with intermittent hematuria. Urine and blood cultures were negative. Discharged home on 11/15/2022 on Keflex x5 days. Returned yesterday evening due to persistent gross hematuria and urinary retention. A three-way Hickman catheter was placed and CBI was initiated. Started on IV ceftriaxone. Urine culture pending. Renal ultrasound 11/16 obtained and reviewed- Slight bilateral hydronephrosis; Thickened urinary bladder wall consistent with cystitis and/or chronic bladder outlet obstruction with bladder diverticula. Patient examined at bedside this AM. Awake, resting in bed on arrival. No acute distress. Three-way Hickman catheter intact with CBI on slow drip. Urine is light pink. Patient denies any significant pain or discomfort at present. No fevers. Has been NPO. States after discharge, he returned home and had been voiding without issue. Several hours later, he noticed increased hematuria with clots and felt he was not emptying his bladder completely which prompted his return to the ED. Allergies Allergy/AdvReac Type Severity Reaction Status Date / Time No Known Allergies Allergy Unknown ` Verified 11/13/22 00:36 Home Medications Medication Instructions Recorded Confirmed Type magnesium 250 mg tablet 250 mg PO DAILY PRN Leg Spasm 02/15/21 11/15/22 History metoprolol succinate 25 mg 12.5 mg PO HS 02/15/21 11/15/22 History tablet,extended release 24 hr atorvastatin 80 mg tablet 80 mg PO HS 09/11/22 11/15/22 History lisinopril 20 mg tablet 20 mg PO DAILY 11/13/22 11/15/22 History cephalexin 500 mg capsule 500 mg PO BID 5 days #10 caps 11/15/22 11/15/22 Rx cyanocobalamin (vitamin B-12) 1,000 mcg PO DAILY #90 caps 11/15/22 11/15/22 Rx 1,000 mcg capsule Patient History Medical History Elevated prostate specific antigen (PSA) Hematuria High cholesterol Hypertension TIA (transient ischemic attack) Surgical History No pertinent past surgical history Social History Smoking Status: Never smoker Second Hand Exposure: No; Hx Alcohol Use: Yes Alcohol type: wine Hx Substance Use: No Preferred Language: Latvian Communication Ability: Effective Coil Winder Hand Required: No Beliefs That Will Affect Care: None Current Living Situation: Alone Feels Safe at Home: Yes Safety Concerns: Feels Safe At This Time Assistive Devices: Contacts Review of Systems Review of Systems: All systems reviewed & are unremarkable except as noted in HPI & below Physical Exam Constitutional: well developed and well nourished; no acute distress Eyes: PERRL, conjunctivae normal, anicteric sclerae ENMT: external ear and nose normal, oropharynx normal Neck: normal visual inspection Respiratory: normal respiratory effort; no respiratory distress and no labored breathing Gastrointestinal (Abdomen): Percussion/Palpation: abdomen soft; abdomen nontender Musculoskeletal: Head/Neck/Chest: normocephalic Skin: No visible rashes or lesions to exposed skin areas Neurologic: moves all extremities and awake Psychiatric: A+Ox3, euthymic affect Genitourinary: Hickman catheter intact, urine is light pink with CBI on slow Results & Data Vital Signs (Past 12 Hours) Vital Signs Temp Pulse Pulse Resp BP Pulse Ox O2 Del Method 11/16/22 07:17 36.7 C 81 16 144/72 H 96 Room Air 11/16/22 01:15 36.6 C 73 18 150/85 H 99 Room Air 11/16/22 01:02 96 Room Air 11/15/22 22:56 89 20 117/61 95 Room Air PG Care Time/CCT Total # of Minutes Spent Total Time Spent with Patient: Total time spent is greater than 50% in coordination of care (as documented) at patient's floor/unit and/or counseling patient: Coding Level of Care Code 72242 INT INP/OBS CARE 3/75MIN Diagnoses Hematuria R31.9 Acute retention of urine R33.8 BPH (benign prostatic hyperplasia) N40.1; R33.8 Lower urinary tract symptom detail: urinary retention Lower urinary tract symptom presence: symptoms present (3) BPH (benign prostatic hyperplasia) Lower urinary tract symptom detail: urinary retention Lower urinary tract symptom presence: symptoms present Qualified Code(s): N40.1 - Benign prostatic hyperplasia with lower urinary tract symptoms; R33.8 - Other retention of urine
[2022-11-16] MEDS: LIDOCAINE 2% JELLY 5 ML TUBE EXT SCH ×2 (09:56→20:57)
[2022-11-16] MEDS ORDERED: ONDANSETRON INJ 2 MG/ML 2 ML VIAL ONE (10:50)
[2022-11-16] MEDS ORDERED: LIDOCAINE 2% MPF LOCAL 5 ML VIAL ONE (10:50)
[2022-11-16] MEDS ORDERED: fentaNYL citrate PF 100 MCG/2 ML VIAL ONE (10:50)
[2022-11-16] MEDS ORDERED: PROPOFOL IV EMULSION 10 MG/ML 20 ML VIAL IV ONE (10:50)
[2022-11-16] MEDS ORDERED: MIDAZOLAM HCL 1 MG/ML 2ML VIAL ONE (10:50)
[2022-11-16] MEDS ORDERED: ePHEDrine sulfate 50 MG/ML AMP IV PRN (11:22)
[2022-11-16] MEDS ORDERED: HYDROmorphone INJ 2 MG/ML SYR/VIAL IV PRN (11:22)
[2022-11-16] MEDS ORDERED: ATROPINE SULFATE 0.1 MG/ML 10ML SYR IV PRN (11:22)
--- NOTE | 2022-11-16 11:22 | Anesthesiology Consultation ---
Date of Service November 16, 2022 Assessment & Plan ASA ASA3 Proposed Anesthesia Anesthesia Type: General Risk / Benefits Reviewed With: PT / POA / Parent / Guardian, Accepts Plan and Informed Consent Obtained History Surgery Operation Date: 11/16/22 10:15 Proposed Procedures p Cystoscopy, Clot Evacuation Possible Fulguration - [employer] Madden, Height/Weight Height: 5 ft 11 in Weight: 90.2 kg Allergies Allergy/AdvReac Type Severity Reaction Status Date / Time No Known Allergies Allergy Unknown ` Verified 11/13/22 00:36 Medications Home Medications Medication Instructions Recorded Confirmed Last Taken magnesium 250 mg tablet 250 mg PO DAILY PRN Leg Spasm 02/15/21 11/15/22 02/13/21 metoprolol succinate 25 mg 12.5 mg PO HS 02/15/21 11/15/22 11/12/22 tablet,extended release 24 hr atorvastatin 80 mg tablet 80 mg PO HS 09/11/22 11/15/22 11/12/22 lisinopril 20 mg tablet 20 mg PO DAILY 11/13/22 11/15/22 11/12/22 cephalexin 500 mg capsule 500 mg PO BID 5 days #10 caps 11/15/22 11/15/22 Unknown cyanocobalamin (vitamin B-12) 1,000 mcg PO DAILY #90 caps 11/15/22 11/15/22 Unknown 1,000 mcg capsule Active Medications Generic Name Dose Route Start Last Admin Trade Name Freq PRN Reason Stop Dose Admin Acetaminophen 650 mg 11/16/22 01:22 11/16/22 09:54 Acetaminophen 325 Mg Tab PO 12/16/22 01:21 650 mg Q4H PRN Administration pain/fever Sodium Chloride 1,000 mls @ 80 mls/hr 11/16/22 01:22 11/16/22 02:01 Nss 1000ml IV 12/16/22 01:21 80 mls/hr .[id number] MARYANN Administration Lidocaine HCl 5 ml 11/16/22 09:00 11/16/22 09:56 Lidocaine 2% Jelly 5 Ml Tube EXT 12/16/22 08:59 5 ml BID MARYANN Administration Tramadol HCl 50 mg 11/15/22 23:44 11/16/22 07:25 Tramadol Hcl 50 Mg Tablet PO 12/15/22 23:43 50 mg Q4H PRN Administration Moderate Pain (Scale 4, 5, 6) NPO Date Last Intake of Fluids: 11/15/22 Time Last Intake of Fluids: 17:00 Date Last Intake of Solids: 11/15/22 Time Last Intake of Solids: 17:00 Past Medical History Medical History Elevated prostate specific antigen (PSA) Hematuria High cholesterol Hypertension TIA (transient ischemic attack) Exercise / Class Metabolic Activity II 4-5 Yardwork/Stairs/Walk up hill Past Surgical History Surgical History No pertinent past surgical history Past Anesthesia History No Hx of Anesthesia Complications and No Family Hx of Anesthesia Complications History of PONV No Hx of PONV and No Hx of Motion Sickness Social History Smoking Status: Never smoker Hx Alcohol Use: Yes Alcohol type: wine alcohol intake frequency: a few times a month Hx Substance Use: No Review of Systems denies fever/cough/ colds/ chest pain/ SOB/ DEYA denies DEYA Physical Exam Vital Signs Last Vital Signs Temp 36.6 C 11/16/22 10:38 Pulse 76 11/16/22 10:38 Resp 18 11/16/22 10:38 BP 144/73 H 11/16/22 10:38 Pulse Ox 97 11/16/22 10:38 O2 Del Method Room Air 11/16/22 10:38 ENMT Mouth: no TMJ abnormality and no dentition abnormality Thyromental Distance: > or= 3.5 Finger Breadths Mallampati Class: II Neck neck extension not limited Respiratory normal respiratory effort; no respiratory distress Auscultation: lungs clear to auscultation bilaterally Cardiovascular Rate/Rhythm: regular rate and regular rhythm Neurologic moves all extremities Psychiatric Orientation: alert and oriented x 3 Testing Laboratory Results 11/16/22 06:31 11/16/22 06:31 Urine Color Red 11/15/22 21:15 Urine Appearance Cloudy (Clear) A 11/15/22 21:15 Urine pH 8.5 (4.5-7.5) H 11/15/22 21:15 Ur Specific [place] 1.020 (1.000-1.030) 11/15/22 21:15 Urine Protein 3+ (Negative) H 11/15/22 21:15 Urine Glucose (UA) 1+ (Negative) H 11/15/22 21:15 Urine Ketones Negative (Negative) 11/15/22 21:15 Urine Nitrite Negative (Negative) 11/15/22 21:15 Ur Leukocyte Esterase Negative (Negative) 11/15/22 21:15 Urine RBC >30 /hpf (0-4) H 11/15/22 21:15 Urine WBC >30 /hpf (0-5) H 11/15/22 21:15 Ur Epithelial Cells 5-10 /lpf (0-5) H 11/15/22 21:15 Blood Type O Positive 11/15/22 23:07 Antibody Screen NEGATIVE 11/15/22 23:07 11/15/22 21:15 Urine Culture - Preliminary Urine,Clean Catch No growth - Less than 1,000 colonies/mL, Final report to follow.
[2022-11-16] MEDS ORDERED: PHENYLEPHRINE 100MCG/ML 5ML SYR ONE (11:58)
--- NOTE | 2022-11-16 12:24 | Operative Report ---
PG Post Operative Report Pre & Post Diagnosis Operation Date: 11/16/22 10:15 Pre-Op Diagnosis: Gross Hematuria Post-Op Diagnosis: Gross Hematuria I identified the patient and participated in the time-out.: Yes Procedure Operation Date: 11/16/22 10:15 Actual Procedures p Cystoscopy with Clot Evacuation with Fulguration. Transurethral vaporization of prostate. - Checo Madden DO Surgeon Checo Madden, II, DO Tower Director None Estimated Blood Loss 10 Findings Consistent with Post-Op Diagnosis Large amount of clot within bladder and large diverticulum of the right trigone. Multiple minor areas of bleeding in resection bed of HoLEP. Large nodule of prostate tissue at the anterior portion causing considerable obstruction of the bladder neck. Specimens None Drains 22Fr 3- way Catheter Anesthesia Type General Complications none Disposition Disposition: Recovery Room Indications Patient with Clot retention and bleeding. History of obstruction due to prostate enlargement with HoLEP at outlying facility. Risks and benefits discussed at length. Description of Procedure Patient was consented and brought back to the operating room. Patient was placed under anesthesia in the supine position and moved to the dorsal lithotomy position. Patient was prepped and draped in the regular sterile fashion. A time out was completed. A 30degree Cystoscope was placed into the bladder and the entire bladder was examined. A extremely large amount of the clot found within the bladder. This was irrigated free. The clot appeared to be old. There was minor areas of bleeding noted within the resection bed. A significant resection cavity had been created during the HoLEP. Of note patient had a moderate amount of tissue in the anterior portion of the prostate causing obstruction at the bladder neck. This appeared to be anterior tissue from approximately 11:00 to 1:00 moving back towards the distal portion of the prostatic urethra. This significantly narrowed the bladder neck. Within the bladder there was an extremely large diverticulum and a large amount of clot had to be irrigated from the diverticulum itself. With all the clot removed from the bladder. Attention was then taken to assess the bladder. A significant amount of edema was noted especially on the right side near the site of the diverticulum. The UO's were identified as well as the bladder neck, trigone, dome, and the other important landmarks. The significant of inflammation around the trigone region especially on the right caused the ureters to be obscured. The prostatic urethra resection bed was assessed. The remaining tissue at the anterior bladder was inspected with attention to its location in relation to the veru and bladder neck identified and area/size was assessed. The resection scope was placed and the bipolar button was selected. The numerous areas of minor venous appearing bleeding happening within the resection bed were fulgurated. All bleeding was controlled. The most significant amount was found towards the bladder neck at approximately the 7 o'clock position. There was also additional areas along the 3 to 6 o'clock position closer to the distal portion of the prostatic urethra. A additional area of bleeding was noted coming from the anterior portion at approximately 12:00. This was involved with the large amount of tissue still remaining at the anterior portion of the bladder neck. Utilizing the vaporization settings the residual tissue at the bladder neck and prostatic urethra was vaporized using the button. This cleared the channel considerably. Allowed better configuration and drainage from the bladder. The areas of edematous tissue as well as the areas of bleeding were fulgurated through the process. The resection bed and any bleeding areas were fulgurated/cauterized and the entire area inspected. All bleeding was controlled. The bladder was inspected a final time. The bladder was emptied and irrigated. All specimen and debris was removed. The scope was removed with the bladder partially full. A 22 Japanese three-way catheter was placed and balloon elevated. This was easily irrigated. The patient was cleaned, aroused from anesthesia, and transferred to the pacu in stable condition having tolerated the procedure well with no complications. I was present and participated in all aspects of the procedure. The patient will be monitored in the PACU until transferred. We will plan to monitor likely overnight. We will maintain CBI for now however there was only minor areas of bleeding and majority of the hematuria was likely due to old blood within the bladder and within the large diverticulum. Patient had vaporization of the tissue at the anterior bladder which will likely help with emptying we will likely need to consider different options for management of the extremely large diverticulum on the right trigone region. We will plan to have patient follow-up with his primary urology team after hospitalization I attest to the content of the Intraoperative Record and any orders documented therein. Any exceptions are noted below.
[2022-11-16] MEDS: fentaNYL citrate PF 100 MCG/2 ML VIAL IV PRN ×2 (12:40→12:47)
--- NOTE | 2022-11-16 14:15 | Hospitalist Progress Note ---
Date of Service November 16, 2022 Assessment & Plan (1) Hematuria: Plan: Gross hematuria has resolved after cystoscopy today, November 16. He had fulguration of several bleeding vessels in the recent surgical bed. He also had evacuation of a bladder clot. Urology consultation and recommendations appreciated. (2) DOREEN (acute kidney injury): Plan: Creatinine has improved from 1.6 on admission down to 1.2. Continue IV fluids. Monitor intake and output. Serial labs (3) Irregular heart rhythm: Plan: History of palpitations. Currently in normal sinus rhythm. (4) Acute blood loss anemia: Plan: Hemoglobin has drifted down since admission which could partially be dilutional due to IV fluids. No indication for blood transfusion at this time. We will follow (5) Acute UTI (urinary tract infection): Plan: Suspected on admission. Final urine culture is pending. He remains on intravenous Rocephin, day 2 (6) Acute retention of urine: Plan: Hickman catheter is now in place. Urology consultation and management (7) BPH (benign prostatic hyperplasia): (8) High cholesterol: Plan: Stable. Continue statin (9) Hypertension: Plan: Stable. Continue current medical management Plan Anticipate eventual discharge to home. Hopefully tomorrow, November 17 Admission and Anticipated Discharge Date Admission Date: November 15, 2022 Subjective Alert and oriented. The patient was seen after his cystoscopy procedure today. Clot was evacuated from the bladder and he also had fulguration of several bleeders in the previous prostate surgical bed from recent surgery. CBI continues. Hopefully he can go home tomorrow, November 17. Appreciate urology consultation and recommendations. He remains on intravenous Rocephin for now. Urine culture is pending. Creatinine improved to 1.2. IV fluids continue at 80 cc/h Review of Systems Review of Systems: Constitutional-no fever or chills ENT-no blurred vision, no double vision, no epistaxis, no sore throat Respiratory-no cough, no wheezing, no shortness of breath Cardiac-no palpitations, no chest pain, no syncope GI-no nausea, vomiting, diarrhea, melena, hematochezia -gross hematuria has markedly improved after cystoscopy procedure earlier today Musculoskeletal-no joint pain, no muscle tenderness Skin-no bruising, no rashes, no pruritus Neuro-no isolated weakness, no paresthesia, no weakness Psych-no depression, no anxiety Physical Exam Physical Exam: General-alert and oriented x3, no fevers, no chills HEENT-head atraumatic and normocephalic, pupils equal and reactive to light, ext raocular muscles intact Neck-no lymphadenopathy or thyromegaly, trachea midline Chest-clear to auscultation percussion. No rales wheezing or rhonchi Cardiac-regular rate and rhythm, normal S1 and S2 Abdomen-normal bowel sounds, nontender, no hepatosplenomegaly GUgross hematuria has resolved. Hickman catheter in place. Extremities-no cyanosis, clubbing, or edema Neuro-cranial nerves II through XII intact, motor and sensory function within normal limits, strength symmetrical, no focal deficits Psych-normal affect, normal mood Results & Data Results & Data Vital Signs (Past 12 Hours) Vital Signs Temp Pulse Pulse Resp BP Pulse Ox O2 Del Method 11/16/22 13:05 36.5 C 67 15 121/64 97 Room Air 11/16/22 12:55 72 12 119/65 93 Room Air 11/16/22 12:45 68 15 127/80 98 Room Air 11/16/22 12:35 68 14 134/75 100 Oxymask 11/16/22 12:26 36.8 C 81 18 134/74 99 Oxymask 11/16/22 10:38 36.6 C 76 18 144/73 H 97 Room Air 11/16/22 07:17 36.7 C 81 16 144/72 H 96 Room Air O2 Flow Rate 11/16/22 13:05 11/16/22 12:55 11/16/22 12:45 11/16/22 12:35 5 11/16/22 12:26 5 11/16/22 10:38 11/16/22 07:17 Laboratory Results 11/16/22 06:31 11/16/22 06:31 PG Care Time/CCT Total # of Minutes Spent Total Time Spent with Patient: Total time spent is greater than 50% in coordination of care (as documented) at patient's floor/unit and/or counseling patient: Coding Level of Care Code 41753 SUB INP/OBS CARE 3/50MIN Diagnoses Hematuria R31.9 DOREEN (acute kidney injury) N17.9 Irregular heart rhythm I49.9 Acute blood loss anemia D62 Acute UTI (urinary tract infection) N39.0 Acute retention of urine R33.8 BPH (benign prostatic hyperplasia) N40.1; R33.8 Lower urinary tract symptom detail: urinary retention Lower urinary tract symptom presence: symptoms present High cholesterol E78.00 Hypertension I10 (7) BPH (benign prostatic hyperplasia) Lower urinary tract symptom detail: urinary retention Lower urinary tract symptom presence: symptoms present Qualified Code(s): N40.1 - Benign prostatic hyperplasia with lower urinary tract symptoms; R33.8 - Other retention of urine
--- NOTE | 2022-11-16 16:23 | Anesthesiology Progress Note ---
Date of Service November 16, 2022 Anesthesia Post Procedure Vital Signs Vital Signs: Temp Pulse Pulse Pulse Resp BP BP 11/16/22 14:00 36.8 C 73 16 131/75 11/16/22 13:30 36.6 C 72 16 116/66 11/16/22 15:32 36.6 C 75 16 138/83 11/16/22 14:30 36.6 C 81 16 133/76 11/16/22 13:05 36.5 C 67 15 121/64 11/16/22 12:55 72 12 119/65 11/16/22 12:45 68 15 127/80 11/16/22 12:35 68 14 134/75 11/16/22 12:26 36.8 C 81 18 134/74 11/16/22 10:38 36.6 C 76 18 144/73 H 11/16/22 07:17 36.7 C 81 16 144/72 H 11/16/22 01:15 36.6 C 73 18 150/85 H 11/16/22 01:02 11/15/22 22:56 89 20 117/61 11/15/22 21:04 36.5 C 102 H 20 117/69 Pulse Ox O2 Del Method O2 Flow Rate 11/16/22 14:00 Room Air 11/16/22 13:30 96 Room Air 11/16/22 15:32 96 Room Air 11/16/22 14:30 97 Room Air 11/16/22 13:05 97 Room Air 11/16/22 12:55 93 Room Air 11/16/22 12:45 98 Room Air 11/16/22 12:35 100 Oxymask 5 11/16/22 12:26 99 Oxymask 5 11/16/22 10:38 97 Room Air 11/16/22 07:17 96 Room Air 11/16/22 01:15 99 Room Air 11/16/22 01:02 96 Room Air 11/15/22 22:56 95 Room Air 11/15/22 21:04 100 Room Air Pain Intensity Penis: Pain Intensity: 5 Transfer of Care Handoff Completed per policy Notes Mental Status: alert / awake / arousable Patient Amnestic to Procedure: Yes Nausea / Vomiting: adequately controlled Pain: adequately controlled Airway Patency, RR, SpO2: stable & adequate BP & HR: stable & adequate Hydration State: stable & adequate Anesthetic Complications: no major complications apparent
[2022-11-16] MEDS: METOPROLOL SUCC 25MG EXT REL TAB PO SCH (20:55)
[2022-11-16] MEDS ORDERED: cefTRIAXone SODIUM 2,000 MG in DEXTROSE 5% 50 ML IV SCH (22:00)
[2022-11-17] MEDS: SODIUM CHLORIDE 0.9% 1000ML 1,000 ML IV SCH (02:33)
[2022-11-17] MEDS: LIDOCAINE 2% JELLY 5 ML TUBE EXT SCH ×2 (07:31→19:56)
[2022-11-17 07:56] LABS: Basophils # (auto) 0.06 K/uL (0-0.2); Basophils % (auto) 0.9 %; Eosinophils % (auto) 4.5 %; Hematocrit (blood only) 25.4 % (42.0-52.0); Hemoglobin 8.3 g/dl (14.0-18.0); Immature Granulocytes # (auto) 0.06 K/uL (0.01-0.20); Immature Granulocytes % (auto) 0.9 %; Lymphocytes # (auto) 1.36 K/uL (1.2-3.4); Lymphocytes % (auto) 20.6 %; Mean Corpuscular Hemoglobin 30.4 pg (25.0-34.0); Mean Corpuscular Hgb Conc 32.7 g/dL (32.0-36.0); Mean Platelet Volume 8.8 fL (9.4-12.4); Monocytes # (auto) 0.55 K/uL (0.11-0.59); Monocytes % (auto) 8.3 %; Neutrophils # (auto) 4.27 K/uL (1.40-6.50); Neutrophils % (auto) 64.8 %; Platelet Count 280 K/uL (130-400); RDW Coefficient of Variation 14.5 % (11.5-14.5); RDW Standard Deviation 47.6 fL (36.4-46.3); Red Blood Count 2.73 M/uL (4.70-6.10)
[2022-11-17 08:12] LABS: BUN Creatinine Ratio 13.6 (10-20); Calcium 7.9 mg/dl (8.6-10.3); Est GFR (African American) 63.8 ml/min
[2022-11-17] MEDS: traMADol HCL 50 MG TABLET PO PRN ×2 (09:23→19:56)
--- NOTE | 2022-11-17 11:50 | Urology Progress Note ---
Date of Service November 17, 2022 Assessment & Plan (1) Hematuria: (2) Acute retention of urine: (3) BPH (benign prostatic hyperplasia): Plan 67yo/M with BPH who recently underwent a HoLEP at [facility] on 10/26/22. Recently admitted from 11/13-11/15 for gross hematuria, urinary retention. Had a 3-way Hickman placed with CBI and treated with antibiotics for suspected UTI. Passed a voiding trial on 11/14/2022 and was voiding spontaneously with intermittent hematuria. Urine and blood cultures were negative. Discharged home on 11/15/2022 on Keflex x5 days. Returned yesterday evening with persistent hematuria and urinary retention. POD #1 s/p Cystoscopy with Clot Evacuation with Fulguration. Transurethral vaporization of prostate. Operative findings included only minor areas of bleeding and majority of the hematuria was likely due to old blood within the bladder and within the large diverticulum. Afebrile and hemodynamically stable. Labs reviewed-no leukocytosis, hemoglobin 8.3, creatinine 1.32. Continue to trend. Urine and blood cultures from prior admission negative. Repeat urine culture pending. On IV ceftriaxone. Follow culture and tailor as culture data becomes available. 3-way Hickman catheter intact. CBI clamped @0900, will continue to monitor. If urine remains clear to light pink, can remain off CBI and monitor. Continue supportive care and antibiotic therapy. Urology will follow. Admission and Anticipated Discharge Date Admission Date: November 15, 2022 Subjective Patient examined at bedside this AM. Awake, resting in bed on arrival. No acute distress. Denies any significant pain or discomfort at present. No fevers. Hickman catheter intact, draining pink tinged urine with CBI on slow. Tolerating diet, no nausea or vomiting. Review of Systems Constitutional: as per Subjective / HPI Gastrointestinal: as per Subjective / HPI Genitourinary: + as per Subjective / HPI Physical Exam Constitutional: well developed and well nourished; no acute distress Respiratory: normal respiratory effort; no respiratory distress and no labored breathing Skin: No visible rashes or lesions to exposed skin areas Neurologic: moves all extremities and awake Psychiatric: A+Ox3, euthymic affect Genitourinary: Hickman catheter intact, draining pink-tinged urine with CBI on slow Results & Data Vital Signs (Past 12 Hours) Vital Signs Temp Pulse Resp BP Pulse Ox O2 Del Method 11/17/22 11:41 36.8 C 86 20 132/78 94 Room Air 11/17/22 07:44 37 C 77 20 138/77 96 Room Air 11/17/22 04:00 36.7 C 85 18 125/74 95 Room Air PG Care Time/CCT Total # of Minutes Spent Total Time Spent with Patient: Total time spent is greater than 50% in coordination of care (as documented) at patient's floor/unit and/or counseling patient: Coding Level of Care Code 96122 SUB INP/OBS CARE 2/35MIN Diagnoses Hematuria R31.9 Acute retention of urine R33.8 BPH (benign prostatic hyperplasia) N40.1; R33.8 Lower urinary tract symptom detail: urinary retention Lower urinary tract symptom presence: symptoms present (3) BPH (benign prostatic hyperplasia) Lower urinary tract symptom detail: urinary retention Lower urinary tract symptom presence: symptoms present Qualified Code(s): N40.1 - Benign prostatic hyperplasia with lower urinary tract symptoms; R33.8 - Other retention of urine
[2022-11-17] MEDS: lisinopril 20 MG TAB PO SCH (12:02)
--- NOTE | 2022-11-17 15:24 | Hospitalist Progress Note ---
Date of Service November 17, 2022 Assessment & Plan (1) Hematuria: Plan: Gross hematuria has resolved after cystoscopy completed on November 16. He had fulguration of several bleeding vessels in the recent surgical bed. He also had evacuation of a bladder clot. Urology consultation and recommendations appreciated. (2) DOREEN (acute kidney injury): Plan: Creatinine has improved from 1.6 on admission. IV fluids have been discontinued. Lisinopril has been restarted. Monitor intake and output. Serial labs (3) Irregular heart rhythm: Plan: History of palpitations. Currently in normal sinus rhythm. (4) Acute blood loss anemia: Plan: Hemoglobin has drifted down since admission which could partially be dilutional due to IV fluids. Now stable. No indication for blood transfusion at this time. We will follow (5) Acute UTI (urinary tract infection): Plan: Suspected on admission but ruled out with low counts of Staphylococcus and other mixed milka. Rocephin has been discontinued (6) Acute retention of urine: Plan: Hickman catheter is now in place. Urology consultation and management (7) BPH (benign prostatic hyperplasia): Plan: Stable. Continue current medical management (8) High cholesterol: Plan: Stable. Continue statin (9) Hypertension: Plan: Stable. Continue current medical management Plan Anticipate eventual discharge to home. Hopefully tomorrowNovember 18 Admission and Anticipated Discharge Date Admission Date: November 15, 2022 Subjective Alert and oriented. Hematuria is resolving. Creatinine down to 1.3. Urine culture is showing low counts of staph with other mixed milka. Rocephin has been discontinued. Lisinopril has been restarted. Hopefully home tomorrowNovember 18 Review of Systems Review of Systems: Constitutional-no fever or chills ENT-no blurred vision, no double vision, no epistaxis, no sore throat Respiratory-no cough, no wheezing, no shortness of breath Cardiac-no palpitations, no chest pain, no syncope GI-no nausea, vomiting, diarrhea, melena, hematochezia -gross hematuria has markedly improved after cystoscopy procedure earlier today Musculoskeletal-no joint pain, no muscle tenderness Skin-no bruising, no rashes, no pruritus Neuro-no isolated weakness, no paresthesia, no weakness Psych-no depression, no anxiety Physical Exam Physical Exam: General-alert and oriented x3, no fevers, no chills HEENT-head atraumatic and normocephalic, pupils equal and reactive to light, extraocular muscles intact Neck-no lymphadenopathy or thyromegaly, trachea midline Chest-clear to auscultation percussion. No rales wheezing or rhonchi Cardiac-regular rate and rhythm, normal S1 and S2 Abdomen-normal bowel sounds, nontender, no hepatosplenomegaly GUgross hematuria has resolved. Hickman catheter in place. Extremities-no cyanosis, clubbing, or edema Neuro-cranial nerves II through XII intact, motor and sensory function within normal limits, strength symmetrical, no focal deficits Psych-normal affect, normal mood Results & Data Results & Data Vital Signs (Past 12 Hours) Vital Signs Temp Pulse Resp BP Pulse Ox O2 Del Method 11/17/22 11:41 36.8 C 86 20 132/78 94 Room Air 11/17/22 07:44 37 C 77 20 138/77 96 Room Air 11/17/22 04:00 36.7 C 85 18 125/74 95 Room Air Laboratory Results 11/17/22 07:26 11/17/22 07:26 PG Care Time/CCT Total # of Minutes Spent Total Time Spent with Patient: Total time spent is greater than 50% in coordination of care (as documented) at patient's floor/unit and/or counseling patient: Coding Level of Care Code 23298 SUB INP/OBS CARE 3/50MIN Diagnoses Hematuria R31.9 DOREEN (acute kidney injury) N17.9 Irregular heart rhythm I49.9 Acute blood loss anemia D62 Acute UTI (urinary tract infection) N39.0 Acute retention of urine R33.8 BPH (benign prostatic hyperplasia) N40.1; R33.8 Lower urinary tract symptom detail: urinary retention Lower urinary tract symptom presence: symptoms present High cholesterol E78.00 Hypertension I10 (7) BPH (benign prostatic hyperplasia) Lower urinary tract symptom detail: urinary retention Lower urinary tract symptom presence: symptoms present Qualified Code(s): N40.1 - Benign prostatic hyperplasia with lower urinary tract symptoms; R33.8 - Other retention of urine
[2022-11-17] MEDS: METOPROLOL SUCC 25MG EXT REL TAB PO SCH (19:55)
[2022-11-18 06:51] LABS: Basophils # (auto) 0.07 K/uL (0-0.2); Basophils % (auto) 0.8 %; Eosinophils # (auto) 0.48 K/uL (0-0.50); Eosinophils % (auto) 5.7 %; Hematocrit (blood only) 25.3 % (42.0-52.0); Hemoglobin 8.3 g/dl (14.0-18.0); Immature Granulocytes # (auto) 0.12 K/uL (0.01-0.20); Immature Granulocytes % (auto) 1.4 %; Lymphocytes # (auto) 1.65 K/uL (1.2-3.4); Lymphocytes % (auto) 19.7 %; Mean Corpuscular Hemoglobin 30.4 pg (25.0-34.0); Mean Corpuscular Hgb Conc 32.8 g/dL (32.0-36.0); Mean Corpuscular Volume 92.7 fL (80.0-100.0); Mean Platelet Volume 9.1 fL (9.4-12.4); Monocytes # (auto) 0.71 K/uL (0.11-0.59); Monocytes % (auto) 8.5 %; Neutrophils # (auto) 5.34 K/uL (1.40-6.50); Neutrophils % (auto) 63.9 %; Platelet Count 277 K/uL (130-400); RDW Coefficient of Variation 15.1 % (11.5-14.5); RDW Standard Deviation 47.9 fL (36.4-46.3); Red Blood Count 2.73 M/uL (4.70-6.10); White Blood Count 8.37 K/ul (4.8-10.8)
[2022-11-18 07:03] LABS: BUN Creatinine Ratio 16.4 (10-20); Calcium 7.9 mg/dl (8.6-10.3); Creatinine Clr Calc Pharmacy 56.2 ml/min; Est GFR (African American) 62.6 ml/min; Est GFR (Non-African American) 54.1 ml/min; Potassium 4.1 mmol/L (3.5-5.1)
[2022-11-18] MEDS: LIDOCAINE 2% JELLY 5 ML TUBE EXT SCH (08:10)
[2022-11-18] MEDS: lisinopril 20 MG TAB PO SCH (08:10)
--- NOTE | 2022-11-18 09:52 | Urology Progress Note ---
Date of Service November 18, 2022 Assessment & Plan (1) Hematuria: (2) Acute retention of urine: (3) BPH (benign prostatic hyperplasia): Plan 67yo/M with BPH who recently underwent a HoLEP at [facility] on 10/26/22. Recently admitted from 11/13-11/15 for gross hematuria, urinary retention. Had a 3-way Hickman placed with CBI and treated with antibiotics for suspected UTI. Passed a voiding trial on 11/14/2022 and was voiding spontaneously with intermittent hematuria. Urine and blood cultures were negative. Discharged home on 11/15/2022 on Keflex x5 days. Returned yesterday evening with persistent hematuria and urinary retention. POD #2 s/p Cystoscopy with Clot Evacuation with Fulguration. Transurethral vaporization of prostate. Operative findings included only minor areas of bleeding and majority of the hematuria was likely due to old blood within the bladder and within the large diverticulum. Afebrile and hemodynamically stable. Labs reviewed-no leukocytosis, hemoglobin 8.3, creatinine 1.34. Urine and blood cultures from prior admission negative. Repeat urine culture shows coag neg staph. Hickamn catheter intact. Urine remains clear off CBI. Okay for discharge from perspective. Recommend d/c with course of oral antibiotics, Macrobid or Doxycycline are appropriate based on culture sensitivities. Maintain Hickman catheter until outpatient voiding trial with urology next week. Patient also plans to follow-up with his operative urologist at [facility] in December. Urology will sign-off. Please contact us with any further questions, concerns, or changes in patient status. Admission and Anticipated Discharge Date Admission Date: November 15, 2022 Subjective Patient examined at bedside this AM. Sitting in bedside chair on arrival. No acute issues overnight. Overall feeling well. Denies any pain or discomfort. No fevers. Hickman catheter intact, draining clear yellow urine. Tolerating diet, no nausea or vomiting. Ambulating without issue. Review of Systems Constitutional: as per Subjective / HPI Gastrointestinal: as per Subjective / HPI Genitourinary: + as per Subjective / HPI Physical Exam Constitutional: well developed and well nourished; no acute distress Respiratory: normal respiratory effort; no respiratory distress and no labored breathing Skin: No visible rashes or lesions to exposed skin areas Neurologic: moves all extremities and awake Psychiatric: A+Ox3, euthymic affect Genitourinary: Hickman intact, urine is clear yellow Results & Data Vital Signs (Past 12 Hours) Vital Signs Temp Pulse Resp BP Pulse Ox O2 Del Method 11/18/22 08:09 121/72 11/18/22 07:23 37.1 C 86 18 115/58 L 95 Room Air 11/17/22 22:06 37.3 C PG Care Time/CCT Total # of Minutes Spent Total Time Spent with Patient: Total time spent is greater than 50% in coordination of care (as documented) at patient's floor/unit and/or counseling patient: Coding Level of Care Code 98161 SUB INP/OBS CARE 2/35MIN Diagnoses Hematuria R31.9 Acute retention of urine R33.8 BPH (benign prostatic hyperplasia) N40.1; R33.8 Lower urinary tract symptom detail: urinary retention Lower urinary tract symptom presence: symptoms present (3) BPH (benign prostatic hyperplasia) Lower urinary tract symptom detail: urinary retention Lower urinary tract symptom presence: symptoms present Qualified Code(s): N40.1 - Benign prostatic hyperplasia with lower urinary tract symptoms; R33.8 - Other retention of urine
--- NOTE | 2022-11-18 12:42 | Discharge Summary ---
Date of Service November 18, 2022 Admission HPI Per Admitting Provider The patient is a 67-year-old male with a past medical history including gross hematuria status post prostate surgery, irregular heart rhythm, acute blood loss anemia, acute UTI, BPH, hypercholesterolemia, TIA, hypertension, and history of bronchitis. His most recent minded admission was from 11/13-11/15, after having had a similar set of symptoms, had a three-way Hickman placed with continuous bladder irrigation, had been found to have urinary tract infection and was discharged on Keflex. Prior to discharge, the patient passed a challenge for urinating, did so without bleeding, and was discharged to home. He reports that shortly after he got home, he had a recurrence of the bleeding, and reports having to stop 3 times in route to the hospital this evening, and was peeing blood each time. He denies any bladder pain, but does have pain at the tip of his penis when he urinates Principal Diagnosis Recurrent hematuria, acute blood loss anemia, acute kidney injury Discharge Exam General-alert and oriented x3, no fevers, no chills HEENT-head atraumatic and normocephalic, pupils equal and reactive to light, extraocular muscles intact Neck-no lymphadenopathy or thyromegaly, trachea midline Chest-clear to auscultation percussion. No rales wheezing or rhonchi Cardiac-regular rate and rhythm, normal S1 and S2 Abdomen-normal bowel sounds, nontender, no hepatosplenomegaly GUFoley catheter remains in place. Hematuria has resolved Extremities-no cyanosis, clubbing, or edema Neuro-cranial nerves II through XII intact, motor and sensory function within normal limits, strength symmetrical , no focal deficits Psych-normal affect, normal mood Discharge Data Allergies Allergy/AdvReac Type Severity Reaction Status Date / Time No Known Allergies Allergy Unknown ` Verified 11/13/22 00:36 Consultations 11/15/22 23:37 ED Decision to Admit Stat Procedures Performed Operation Date: 11/16/22 10:15 Actual Procedures p Cystoscopy, Clot Evacuation with Fulguration(Not Applicable) - Checo Madden DO Ordered Studies 11/15/22 23:04 US Renal Bladder [US renal/blad retro comp] Stat Hospital Course (1) Hematuria: Present on admission. Now resolved. He had cystoscopy done November 16 with removal of bladder clot and cautery of bleeders in the surgical bed from previous holmium laser prostatectomy done at [facility] on October 26. He also had tissue vaporization done by urology. (2) DOREEN (acute kidney injury): Creatinine was elevated on admission. Resolved with intravenous fluids (3) Acute blood loss anemia: Hemoglobin dropped to 8.2 then remained stable. No transfusion needed (4) Acute retention of urine: Hickman catheter will remain in place at discharge and will be removed on November 23 in the office Plan Home today, November 18 Total Time Total Time Spent Total Time Spent (In Minutes): 40 minutes Discharge Plan Discharge Items Patient Disposition: Home - Self-Care Reason For Visit: HEMATURIA, BLADDER OUTLET OBSTRUCTION Discharge Diagnosis: Recurrent hematuria, acute blood loss anemia, acute kidney injury Condition on Discharge: Fair Activity: Resume your previous activity Non-emergency contact: Primary Care Provider Call non-emergency contact if: you have any medication questions and your symptoms worsen Follow-up/Referrals: Gillian Puckett CRNP [Primary Care Provider] - [facility],Nurse [FAKE FOR SCHEDULES] - 11/23/22 10:45 am Diet: Regular and Heart Healthy Linda Attending Provider Instructions: Hickman catheter will remain in place and be removed by the urology doctors in the office on November 23 [employer] Provider Instructions: Please call the urology office at [phone] with any questions, concerns or need to reschedule appointments for any reason. We are happy to assist you. You are scheduled for catheter removal on 11/23/22 at 10:45AM in the Urology office. Tips for your recovery at home: Dont be alarmed by brownish or reddish blood or clots in your urine. This is a result of the procedure. This may occur off and on for weeks to months after the procedure but should continue to improve. Drink plenty of fluids during the day (enough to keep your urine very light colored). This will help keep a healthy flow of urine. Avoid constipation. Please use a stool softener (Colace) if needed. Be sure to finish the antibiotics as prescribed. If you go home with a catheter, please wash tubing where it enters your body twice daily with mild soap (Dove or Dial). Once your catheter is removed, expect some blood in your urine and some burning when you urinate. You should have an appointment to have this removed, if you do not please call our office to arrange. When to call [facility] at [phone]: Your urine contains heavy blood clots or your catheter stops draining. You are constantly leaking urine. Fever of 101F or higher, chills, nausea, or vomiting. Your pain is not relieved with medication. Pending Studies at Discharge: No Stand-Alone Forms: My [facility] [email or web address], Smoking Cessation Medications and DC Order Prescriptions: Continued doxycycline hyclate 100 mg tablet 100 mg PO BID 7 Days Qty: 14 0RF atorvastatin 80 mg tablet 80 mg PO HS magnesium 250 mg Tablet 250 mg PO DAILY PRN (Reason: Leg Spasm) metoprolol succinate 25 mg tablet extended release 24 hr 12.5 mg PO HS lisinopril 20 mg tablet 20 mg PO DAILY cyanocobalamin (vitamin B-12) 1,000 mcg capsule 1,000 mcg PO DAILY Qty: 90 1RF Rx Instructions: take for 6 months. Purchase [id number]. Discharge Orders: Discharge Order (Routine); Ordered 11/18/22 Ordered By: Roel Guy Admission Data Admit Date/Time: 11/15/22 23:55 Attending Provider: Roel Guy Admit Provider: Taran Vines Primary Care Provider: Gillian Puckett Other Providers: Taran Vines Coding Level of Care Code 21592 INP/OBS DISCH >30 MIN Diagnoses Hematuria R31.9 DOREEN (acute kidney injury) N17.9 Acute blood loss anemia D62 Acute retention of urine R33.8
== END 2022-11-18 13:20 | disposition home or self-care (01) | DRG 666 ==
LOC: ED 20:58 → 3N 23:55 → SUATTDRO 23:55 → 3N 11-16 01:02

== ENCOUNTER 2023-06-20 12:17 | Observation (INO) ==
--- NOTE | 2023-06-20 12:32 | Emergency Department Note ---
Impression & Plan TIA (transient ischemic attack), Hypertension, Left arm weakness ED Provider Note Name: BUBBA JUÁREZ Age: 68 Sex: Male Arrives Via: Walk-In Informant: Patient ED Provider: Herrera Pratt MD Chief Complaint: Strokelike symptoms Impression: As per impressions above Medical Decision Makin-year-old gentleman with a history of TIA as well as high cholesterol, hypertension, BPH arrives for evaluation of about 1 minute left arm weakness and paresthesias. Symptoms are fully resolved on arrival and he has no neurologic deficits on my evaluation. His NIH is 0. CT of the head with angios of the head and neck are unremarkable. Laboratory work-up looks good. Patient given aspirin 324 mg p.o. for prophylaxis. Discussed with hospitalist will bring in for further work-up and evaluation given his high risk scores. Triage/Nursing Notes reviewed by Me Differential:Infection, dehydration, metabolic abnormality, hypo/hyperglycemia, electrolyte disturbance, anemia, hypoxia, cardiac sources, intracerebral event, toxicologic, neurologic, as well as other pathologies. Vital Signs: reviewed and remarkable for hypertension Interventions: Aspirin 324 mg p.o. Labs:ED labs Reviewed by me and remarkable for no significant abnormalities Imaging:CT of the head without contrast as per my informal interpretation. No acute ICH nor other acute finding. Confirmed by Radiologist CT angiography of the head and neck as per radiologist no acute findings. EKG:Per My Interpretation: Indication stroke like symptoms: Sinus Javad 58 bpm, qtc 429. No Ectopy. No Ischemia. Compared to EKG 11/14/22, no significant changes. Cardiac/Tele Monitoring: Cardiac Monitoring: An Order was placed for continuous cardiac monitoring. The monitor shows a rate of 60 with a normal sinus rhythm. Consults:Dr Drea DEY Hospitalist Plan: Disposition: Hospitalization Condition: Good History of Present Illness: 68-year-old gentleman arrives for evaluation of left-sided weakness. Patient states he had sudden onset left-sided weakness of arm and leg at roughly 11:40 AM. This resolved after a few moments, no longer than a minute. Notes left-sided headache now. States headache is more of a burning sensation. Denies any syncope, visual change, slurred speech, possible bowel or bladder control. Denies any current symptoms other than this burning sensation on the left side of his scalp/brain. Denies any neck pain or other concerning signs or symptoms. Has had no recent falls, trauma, injuries. Patient does note a history of a stroke at 10 years ago. He is not currently on any blood thinners or aspirin. States he did have some significant issues with bleeding post prostate surgery is been off blood thinners since. No medications prior to arrival. States he has fully resolved at this time other than the headache. Patient states he is able to ambulate without difficulty. Past Medical History:See Below Home Medications:See Below Allergies:nkda Vitals:Blood Pressure: 171/91, Pulse 64, RR 18, T 36.8C, O2 94% on RA Physical Exam: GENERAL: Patient is anxious appearing and in minimal distress. RESPIRATORY: No dyspnea. Clear to auscultation and equal bilaterally. CARDIOVASCULAR: Regular rate and rhythm.No murmur appreciated. GASTROINTESTINAL: Abdomen soft, non-tender, no peritonitis. BACK: No midline tenderness, no CVA tenderness EXTREMITIES: Normal motion all extremities, no cyanosis, no edema. NEUROLOGIC: Alert and oriented. Patient mildly tremulous but without any focal neurologic deficits cranial nerves intact and cerebellar exam is normal. Good strength all extremities. SKIN: No rash, no jaundice, no diaphoresis. PSYCH: Appropriate GCS: 15 ED Course: Times/Reassessments: Patient stable comfortable no return of symptoms though blood pressure remains a bit elevated. Herrera Pratt MD Past Med/Surg History Medical History (Updated 06/20/23 @ 19:43 by Herrera Pratt MD) BPH (benign prostatic hyperplasia) High cholesterol Hypertension Acute retention of urine Elevated prostate specific antigen (PSA) Hematuria TIA (transient ischemic attack) Surgical History No pertinent past surgical history Social History Smoking Status: Never smoker Second Hand Exposure: No; Do You Dip or Chew Tobacco: No; Tobacco Cessation Education Requested by Patient: No Hx Alcohol Use: Yes Alcohol type: wine Hx Substance Use: No Preferred Language: Hungarian Communication Ability: Effective Client Services Analyst Required: No Beliefs That Will Affect Care: None Current Living Situation: Alone Current Living Situation Comment: Lives home by himself Feels Safe at Home: Yes Safety Concerns: Feels Safe At This Time Assistive Devices: None Allergies Allergies Allergy/AdvReac Type Severity Reaction Status Date / Time No Known Allergies Allergy Unknown ` Verified 11/13/22 00:36 Home Meds Home Medications Medication Instructions Recorded Confirmed magnesium 250 mg tablet 250 mg PO DAILY PRN Leg Spasm 02/15/21 06/20/23 metoprolol succinate 25 mg 12.5 mg PO HS 02/15/21 06/20/23 tablet,extended release 24 hr atorvastatin 80 mg tablet 80 mg PO HS 09/11/22 06/20/23 lisinopril 20 mg tablet 20 mg PO DAILY 11/13/22 06/20/23 Previous Rx's Medication Instructions Recorded cyanocobalamin (vitamin B-12) 1,000 mcg PO DAILY #90 caps 11/15/22 1,000 mcg capsule Results & Data (ED) Vital Signs Vital Signs - 24 hr 06/20/23 12:21 06/20/23 12:52 06/20/23 13:09 Temperature 36.8 C Temperature Source Temporal Artery Scan Pulse Rate 64 63 Pulse Rate [Right Finger] Respiratory Rate 18 Respiratory Effort / Characteristics Respiratory Depth Blood Pressure 171/91 H Blood Pressure [Right Arm] Blood Pressure Mean 117 Blood Pressure Mean [Right Arm] Pulse Oximetry 94 95 Oxygen Delivery Method Room Air Room Air Sepsis Recent Fever Within 48 Hours No Sepsis New/Unexplained Change in Mental Status No Sepsis Action Taken by Nursing No Action Required 06/20/23 13:09 Temperature Temperature Source Pulse Rate Pulse Rate [Right Finger] 58 L Respiratory Rate 16 Respiratory Effort / Characteristics Non-Labored Spontaneous Respiratory Depth Normal Blood Pressure Blood Pressure [Right Arm] 177/102 H Blood Pressure Mean Blood Pressure Mean [Right Arm] 127 Pulse Oximetry 95 Oxygen Delivery Method Room Air Sepsis Recent Fever Within 48 Hours Sepsis New/Unexplained Change in Mental Status Sepsis Action Taken by Nursing Laboratory Data 06/20/23 12:32 06/20/23 12:32 Lab Results 06/20/23 06/20/23 06/20/23 Range/Units 12:32 13:01 13:52 WBC 6.75 (4.8-10.8) K/ul RBC 4.99 (4.70-6.10) M/uL Hgb 15.4 (14.0-18.0) g/dl Hct 45.1 (42.0-52.0) % MCV 90.4 (80.0-100.0) fL MCH 30.9 (25.0-34.0) pg MCHC 34.1 (32.0-36.0) g/dL RDW Std Deviation 46.6 H (36.4-46.3) fL RDW Coeff of Bhargav 14.1 (11.5-14.5) % Plt Count 188 (130-400) K/uL MPV 9.7 (9.4-12.4) fL Immature Gran % (Auto) 0.3 % Neut % (Auto) 61.6 % Lymph % (Auto) 23.7 % [place] % (Auto) 11.1 % Eos % (Auto) 2.4 % Baso % (Auto) 0.9 % Neut # (Auto) 4.16 (1.40-6.50) K/uL Lymph # (Auto) 1.60 (1.20-3.40) K/uL [place] # (Auto) 0.75 H (0.11-0.59) K/uL Eos # (Auto) 0.16 (0.00-0.50) K/uL Baso # (Auto) 0.06 (0.00-0.20) K/uL Immature Gran # (Auto) 0.02 (0.01-0.20) K/uL PT 11.2 (9.0-12.0) Seconds INR 1.0 (0.9-1.1) APTT 30.0 (21.0-31.0) Seconds PTT Ratio 1.1 Sodium 135 L (136-145) mmol/L Potassium 4.0 (3.5-5.1) mmol/L Chloride 104 (98-107) mmol/L Carbon Dioxide 24 (21-32) mmol/L Anion Gap 7 (3-11) BUN 21 (6-23) mg/dl Creatinine 1.50 H (0.6-1.4) mg/dl Est Cr Clr Drug Dosing Not Reportable Est GFR ( Amer) 54.3 ml/min Est GFR (Non-Af Amer) 46.8 ml/min BUN/Creatinine Ratio 14.0 (10-20) Glucose 135 H (70-99(Fasting)) mg/dl POC Glucose 128 H (70-99) mg/dl Calcium 8.8 (8.6-10.3) mg/dl Magnesium 2.1 (1.7-2.4) mg/dl Total Bilirubin 0.6 (0.2-1.0) mg/dl AST 20 (13-39) U/L ALT 22 (7-52) U/L Alkaline Phosphatase 71 (34-104) U/L Troponin I High Sens 8.7 (0-20) pg/ml Total Protein 7.7 (6.0-8.3) gm/dl Albumin 4.4 (3.4-5.0) gm/dl Globulin 3.3 (2.5-4.0) gm/dl Albumin/Globulin Ratio 1.3 (0.9-2) Urine Color Yellow Urine Appearance Clear (Clear) Urine pH 7.0 (4.5-7.5) Ur Specific [place] 1.027 (1.000-1.030) Urine Protein Negative (Negative) Urine Glucose (UA) Negative (Negative) Urine Ketones Negative (Negative) Urine Blood 1+ H (Negative) Urine Nitrite Negative (Negative) Urine Bilirubin Negative (Negative) Urine Urobilinogen Negative (Negative) Ur Leukocyte Esterase 1+ H (Negative) Urine WBC (Auto) >30 H (0-5) /hpf Urine RBC (Auto) 0-4 (0-4) /hpf U Hyaline Cast (Auto) 1-5 (0-5) /lpf U Epithel Cells (Auto) 0-5 (0-5) /lpf Urine Bacteria (Auto) 4+ H (Negative) Administered Medications Discontinued Medications Acetaminophen (Acetaminophen 325 Mg Tab) 650 mg PO NOW STA Stop: 06/20/23 14:33 Last Admin: 06/20/23 15:51 Dose: 650 mg Documented By: ESSIE Aspirin (Aspirin 81 Mg Chew) 324 mg PO NOW STA Stop: 06/20/23 13:53 Last Admin: 06/20/23 13:56 Dose: 324 mg Documented By: ROCÍO Lactated Ringer's (Lr) 500 mls @ 999 mls/hr IV .Q31M ONE Stop: 06/20/23 15:04 Last Infusion: 06/20/23 16:59 Dose: Infused Documented By: Admin: 06/20/23 15:47 Dose: 999 mls/hr Documented By: ESSIE Ioversol (Optiray 320 500ml) 112 ml IV ONCE ONE Stop: 06/20/23 12:38 Last Admin: 06/20/23 12:37 Dose: 112 ml Documented By: ELIANE Imaging Data Radiologist's Impression: Head CT 06/20/23 12:28 CT angio head w con, CT head/brain wo con CLINICAL HISTORY: neuro deficit, acute stroke suspected TECHNIQUE: Contiguous axial CT images of the head were acquired from the base of the skull to the vertex without intravenous contrast administration. CT angiography of the head and neck was performed following intravenous administration of iodinated contrast. Coronal and sagittal MIPS were obtained from the axial data set and were submitted for review. Automated dose lowering techniques and/or adjustment according to patient size were utilized for this examination. All measurements were calculated based on NASCET criteria. CT DOSE: Comparison: None available at the time of this dictation. FINDINGS: CT head: There is no acute intracranial hemorrhage or evidence of acute territorial infarction. No shift of the midline structures, mass effect, or extra-axial abnormalities are shown. Lungs and soft tissues are unremarkable. CTA Neck: A 3 vessel aortic arch is shown. There is no significant atherosclerotic plaque in the aortic arch or the origins of the innominate, left common carotid, and left subclavian arteries. The common carotid, external carotid, cervical segments of the internal carotid arteries, and the cervical segments of the vertebral arteries are patent without hemodynamically significant stenosis. The left vertebral artery is dominant. CTA Head: The anterior and posterior cerebral circulations are patent. No hemodynamically significant stenosis, aneurysm, dissection, or arteriovenous malformation is shown. IMPRESSION: 1. No acute intracranial hemorrhage, evidence of acute territorial infarction, or other acute intracranial disease process. 2. No occlusion, hemodynamically significant stenosis, or dissection in the major cervical arteries. 3. No occlusion, hemodynamically significant stenosis, aneurysm, dissection, or arteriovenous malformation in the major intracranial arteries. Assessment of stenosis of the internal carotid arteries is based on NASCET criteria. ACT 112: Negative or not required by law. Electronically signed by: Jhonatan Walton M.D. 06/20/2023 1:39 PM Head CTA 06/20/23 12:28 CT angio head w con, CT head/brain wo con CLINICAL HISTORY: neuro deficit, acute stroke suspected TECHNIQUE: Contiguous axial CT images of the head were acquired from the base of the skull to the vertex without intravenous contrast administration. CT angiography of the head and neck was performed following intravenous administration of iodinated contrast. Coronal and sagittal MIPS were obtained from the axial data set and were submitted for review. Automated dose lowering techniques and/or adjustment according to patient size were utilized for this examination. All measurements were calculated based on NASCET criteria. CT DOSE: Comparison: None available at the time of this dictation. FINDINGS: CT head: There is no acute intracranial hemorrhage or evidence of acute territorial infarction. No shift of the midline structures, mass effect, or extra-axial abnormalities are shown. Lungs and soft tissues are unremarkable. CTA Neck: A 3 vessel aortic arch is shown. There is no significant atherosclerotic plaque in the aortic arch or the origins of the innominate, left common carotid, and left subclavian arteries. The common carotid, external carotid, cervical segments of the internal carotid arteries, and the cervical segments of the vertebral arteries are patent without hemodynamically significant stenosis. The left vertebral artery is dominant. CTA Head: The anterior and posterior cerebral circulations are patent. No hemodynamically significant stenosis, aneurysm, dissection, or arteriovenous malformation is shown. IMPRESSION: 1. No acute intracranial hemorrhage, evidence of acute territorial infarction, or other acute intracranial disease process. 2. No occlusion, hemodynamically significant stenosis, or dissection in the major cervical arteries. 3. No occlusion, hemodynamically significant stenosis, aneurysm, dissection, or arteriovenous malformation in the major intracranial arteries. Assessment of stenosis of the internal carotid arteries is based on NASCET criteria. ACT 112: Negative or not required by law. Electronically signed by: Jhonatan Walton M.D. 06/20/2023 1:39 PM Neck CTA 06/20/23 12:28 CT angio neck with con CLINICAL HISTORY: neuro deficit, acute stroke suspected TECHNIQUE: Contiguous axial CT images of the head were acquired from the base of the skull to the vertex without intravenous contrast administration. CT angiography of the head and neck was performed following intravenous administration of iodinated contrast. Coronal and sagittal MIPS were obtained from the axial data set and were submitted for review. Automated dose lowering techniques and/or adjustment according to patient size were utilized for this examination. All measurements were calculated based on NASCET criteria. CT DOSE: 1206.65 mGy.cm Comparison: None available at the time of this dictation. FINDINGS: CT head: There is no acute intracranial hemorrhage or evidence of acute territorial infarction. No shift of the midline structures, mass effect, or extra-axial abnormalities are shown. Lungs and soft tissues are unremarkable. CTA Neck: A 3 vessel aortic arch is shown. There is no significant atherosclerotic plaque in the aortic arch or the origins of the innominate, left common carotid, and left subclavian arteries. The common carotid, external carotid, cervical segments of the internal carotid arteries, and the cervical segments of the vertebral arteries are patent without hemodynamically significant stenosis. The left vertebral artery is dominant. CTA Head: The anterior and posterior cerebral circulations are patent. No hemodynamically significant stenosis, aneurysm, dissection, or arteriovenous malformation is shown. IMPRESSION: 1. No acute intracranial hemorrhage, evidence of acute territorial infarction, or other acute intracranial disease process. 2. No occlusion, hemodynamically significant stenosis, or dissection in the major cervical arteries. 3. No occlusion, hemodynamically significant stenosis, aneurysm, dissection, or arteriovenous malformation in the major intracranial arteries. Assessment of stenosis of the internal carotid arteries is based on NASCET criteria. ACT 112: Negative or not required by law. Electronically signed by: Jhonatan Walton M.D. 06/20/2023 1:30 PM Discharge Plan Visit Data Chief Complaint: Neuro Symptoms/Deficit Stated Complaint: LEFT SIDE WEAKNESS - HX PREVIOUS STROKE ED Provider: Herrera Pratt Discharge Problem: TIA (transient ischemic attack), Hypertension, Left arm weakness Patient Disposition: Admitted As Inpatient Discharge Instructions Interventions: ED Discharge Assessment Last Done: 06/20/23 17:10 Discharge Problem: Hypertension Qualifiers: Hypertension type: unspecified Qualified Code(s): I10 - Essential (primary) hypertension
[2023-06-20] MEDS ORDERED: OPTIRAY 320 500ml IV ONE (12:37)
[2023-06-20 12:50] LABS: Basophils # (auto) 0.06 K/uL (0.00-0.20); Basophils % (auto) 0.9 %; Eosinophils # (auto) 0.16 K/uL (0.00-0.50); Eosinophils % (auto) 2.4 %; Hematocrit (blood only) 45.1 % (42.0-52.0); Hemoglobin 15.4 g/dl (14.0-18.0); Immature Granulocytes # (auto) 0.02 K/uL (0.01-0.20); Immature Granulocytes % (auto) 0.3 %; Lymphocytes % (auto) 23.7 %; Mean Corpuscular Hemoglobin 30.9 pg (25.0-34.0); Mean Corpuscular Hgb Conc 34.1 g/dL (32.0-36.0); Mean Corpuscular Volume 90.4 fL (80.0-100.0); Mean Platelet Volume 9.7 fL (9.4-12.4); Monocytes # (auto) 0.75 K/uL (0.11-0.59); Monocytes % (auto) 11.1 %; Neutrophils # (auto) 4.16 K/uL (1.40-6.50); Neutrophils % (auto) 61.6 %; Platelet Count 188 K/uL (130-400); RDW Coefficient of Variation 14.1 % (11.5-14.5); RDW Standard Deviation 46.6 fL (36.4-46.3); Red Blood Count 4.99 M/uL (4.70-6.10); White Blood Count 6.75 K/ul (4.8-10.8)
[2023-06-20 13:12] LABS: Alanine Aminotransferase 22 U/L (7-52); Albumin Globulin Ratio 1.3 (0.9-2); Albumin Level 4.4 gm/dl (3.4-5.0); Alkaline Phosphatase 71 U/L (34-104); Anion Gap 7 (3-11); Aspartate Aminotransferase 20 U/L (13-39); Bilirubin,Total 0.6 mg/dl (0.2-1.0); Blood Urea Nitrogen 21 mg/dl (6-23); Calcium 8.8 mg/dl (8.6-10.3); Carbon Dioxide 24 mmol/L (21-32); Chloride 104 mmol/L (98-107); Est GFR (African American) 54.3 ml/min; Est GFR (Non-African American) 46.8 ml/min; Globulin 3.3 gm/dl (2.5-4.0); Glucose 135 mg/dl (70-99(Fasting)); Magnesium 2.1 mg/dl (1.7-2.4); Sodium 135 mmol/L (136-145); Total Protein 7.7 gm/dl (6.0-8.3)
[2023-06-20 13:19] LABS: Troponin I High Sensitivity 8.7 pg/ml (0-20)
[2023-06-20 13:20] LABS: Partial Thromboplastin Ratio 1.1; Prothrombin Time 11.2 Seconds (9.0-12.0)
--- NOTE | 2023-06-20 13:33 | CT Scan Report ---
CT angio neck with con CLINICAL HISTORY: neuro deficit, acute stroke suspected TECHNIQUE: Contiguous axial CT images of the head were acquired from the base of the skull to the curtis argelia without intravenous contrast administration. CT angiography of the head and neck was performed f ollowing intravenous administration of iodinated contrast. Coronal and sagittal MIPS were obtained fr om the axial data set and were submitted for review. Automated dose lowering techniques and/or adjus tment according to patient size were utilized for this examination. All measurements were calculated based on NASCET criteria. CT DOSE: 1206.65 mGy.cm Comparison: None available at the time of this dictation. FINDINGS: CT head: There is no acute intracranial hemorrhage or evidence of acute territorial infarction. No sh ift of the midline structures, mass effect, or extra-axial abnormalities are shown. Lungs and soft tissues are unremarkable. CTA Neck: A 3 vessel aortic arch is shown. There is no significant atherosclerotic plaque in the aor tic arch or the origins of the innominate, left common carotid, and left subclavian arteries. The co mmon carotid, external carotid, cervical segments of the internal carotid arteries, and the cervical segments of the vertebral arteries are patent without hemodynamically significant stenosis. The left vertebral artery is dominant. CTA Head: The anterior and posterior cerebral circulations are patent. No hemodynamically significan t stenosis, aneurysm, dissection, or arteriovenous malformation is shown. IMPRESSION: 1. No acute intracranial hemorrhage, evidence of acute territorial infarction, or other acute intrac ranial disease process. 2. No occlusion, hemodynamically significant stenosis, or dissection in the major cervical arteries. 3. No occlusion, hemodynamically significant stenosis, aneurysm, dissection, or arteriovenous malfor mation in the major intracranial arteries. Assessment of stenosis of the internal carotid arteries is based on NASCET criteria. ACT 112: Negative or not required by law. Electronically signed by: Jhonatan Walton M.D. 06/20/2023 1:30 PM
--- NOTE | 2023-06-20 13:40 | CT Scan Report ---
CT angio head w con, CT head/brain wo con CLINICAL HISTORY: neuro deficit, acute stroke suspected TECHNIQUE: Contiguous axial CT images of the head were acquired from the base of the skull to the curtis argelia without intravenous contrast administration. CT angiography of the head and neck was performed f ollowing intravenous administration of iodinated contrast. Coronal and sagittal MIPS were obtained fr om the axial data set and were submitted for review. Automated dose lowering techniques and/or adjus tment according to patient size were utilized for this examination. All measurements were calculated based on NASCET criteria. CT DOSE: Comparison: None available at the time of this dictation. FINDINGS: CT head: There is no acute intracranial hemorrhage or evidence of acute territorial infarction. No sh ift of the midline structures, mass effect, or extra-axial abnormalities are shown. Lungs and soft tissues are unremarkable. CTA Neck: A 3 vessel aortic arch is shown. There is no significant atherosclerotic plaque in the aor tic arch or the origins of the innominate, left common carotid, and left subclavian arteries. The co mmon carotid, external carotid, cervical segments of the internal carotid arteries, and the cervical segments of the vertebral arteries are patent without hemodynamically significant stenosis. The left vertebral artery is dominant. CTA Head: The anterior and posterior cerebral circulations are patent. No hemodynamically significan t stenosis, aneurysm, dissection, or arteriovenous malformation is shown. IMPRESSION: 1. No acute intracranial hemorrhage, evidence of acute territorial infarction, or other acute intrac ranial disease process. 2. No occlusion, hemodynamically significant stenosis, or dissection in the major cervical arteries. 3. No occlusion, hemodynamically significant stenosis, aneurysm, dissection, or arteriovenous malfor mation in the major intracranial arteries. Assessment of stenosis of the internal carotid arteries is based on NASCET criteria. ACT 112: Negative or not required by law. Electronically signed by: Jhonatan Walton M.D. 06/20/2023 1:39 PM
[2023-06-20] MEDS ORDERED: ASPIRIN 81 MG CHEW PO STA (13:52)
--- NOTE | 2023-06-20 14:07 | History & Physical Report ---
Date of Service June 20, 2023 Assessment & Plan (1) Stroke-like symptoms: Plan: -Admit to med/tele -Currently stable with mild headache and brain fog but denies focal defects at this time -Patient has a hx of TIA and was previously on Aspirin, but this was discon tinued after he developed gross hematuria with acute blood loss anemia in November after cystoscopy with transurethral laser enucleation of his prostate gland on 10/26/2022 at [facility]. -CT of the head/brain wo con, CTA head, and CTA neck were read as no acute findings -S/P 324 mg Aspirin in the ED -WIll obtain MRI of the brain wo con and TTE for further evaluation -AM Hgb A1c and fasting lipid panel tomorrow -Will obtain UA and chest xray to rule out other causes of acute weakness -Fall precautions, PT/OT consults, Neurology consult -At this time we will plan on restarting daily baby aspirin if he remains without hematuria for stroke risk reduction -Continue high dose statin -Hold chemical DVT PPX at this time to reduce his risk of recurring hematuria on Aspirin; will order BL SEEMA's -Will start diet when MRI results are back -AM CBC, CMP, Mag, PT/INR, A1C, and Lipid panel (2) Hypertension: Plan: -Mild HTN on admission at 177/102, patient is also anxious at this time -Did have his am dose of lisinopril -Will hold additional antihypertensives at this time until acute stroke is ruled out on MRI -Continue metoprolol (3) High cholesterol: Plan: -Continue statin Plan The patient was discussed with Dr. Shepard at the time of the admission History of Present Illness Chief Complaint: Left sided weakness Primary Care Provider: NO PCP Victoriano is a 68 year old male with a PMH significant for previous TIA (Of anticoagulation/antiplatelets due to hematuria), gross hematuria status post prostate surgery, irregular heart rhythm, acute blood loss anemia, acute UTI, BPH, hypercholesterolemia, hypertension who presented to the [facility] ED on 06/20 for left sided weakness while at work. He was noted to be hypertensive at 177/102 but otherwise stable. Labs including CBC, CMP, and high sen trop were unremarkable. CT of the head/brain wo con, CTA head, and CTA neck were all read as negative for acute findings. The patient's left sided weakness resolved while in the ED but he was still experiencing a mild headache. Prior to admission the patient was given 324 mg Aspirin. At the time of the exam the patient was lying in bed in no acute distress. He states that he was in his normal state of health when he woke today. He works at the [employer] [place]130 when he had a sudden onset of left-sided weakness. He states that the feeling of weakness only lasted for "a few seconds" and resolved spontaneously. However, he developed a mild headache and brain fog after his initial symptoms resolved. Because of his hx of previous TIA he decided to be evaluated in the ED. He denies changes in vision, hearing, taste, and smell, current unilateral weakness, paresthesias, chest pain, SOB, heart palpitations, vomiting, diarrhea, dysuria, hematuria, melena, LE swelling, and recent trauma. His only symptoms at this time are mild nausea, fatigue, and mild brain fog. He was previously on a baby aspirin for his TIA but this was discontinued after he had multiple admissions earlier this year due to gross hematuria. He had cystoscopy with transurethral laser enucleation of his prostate gland on 10/26/2022 at [facility]. This along with possible UTI were thought to be the cause of his hematuria. He denies any recent hematuria or bleeding of any kind. We discussed code status, he wishes to be a full code and for his son to make medical decisions for him if he cannot make them himself. Please refer to Dr. Shepard's attestation for any changes to the treatment plan Allergies Allergy/AdvReac Type Severity Reaction Status Date / Time No Known Allergies Allergy Unknown ` Verified 11/13/22 00:36 Home Medications Medication Instructions Recorded Confirmed Type magnesium 250 mg tablet 250 mg PO DAILY PRN Leg Spasm 02/15/21 06/20/23 History metoprolol succinate 25 mg 12.5 mg PO HS 02/15/21 06/20/23 History tablet,extended release 24 hr atorvastatin 80 mg tablet 80 mg PO HS 09/11/22 06/20/23 History lisinopril 20 mg tablet 20 mg PO DAILY 11/13/22 06/20/23 History cyanocobalamin (vitamin B-12) 1,000 mcg PO DAILY #90 caps 04/02/23 11/05/23 Rx 1,000 mcg capsule Past Med/Surg History Medical History (Updated 06/20/23 @ 19:43 by Herrera Pratt MD) BPH (benign prostatic hyperplasia) High cholesterol Hypertension Acute retention of urine Elevated prostate specific antigen (PSA) Hematuria TIA (transient ischemic attack) Surgical History No pertinent past surgical history Social History Smoking Status: Never smoker Second Hand Exposure: No; Do You Dip or Chew Tobacco: No; Tobacco Cessation Education Requested by Patient: No Hx Alcohol Use: Yes Alcohol type: wine Hx Substance Use: No Preferred Language: Tamazight Communication Ability: Effective [employer] Dispatcher Required: No Beliefs That Will Affect Care: None Current Living Situation: Alone Current Living Situation Comment: Lives home by himself Feels Safe at Home: Yes Safety Concerns: Feels Safe At This Time Assistive Devices: None Physical Exam 2 Physical Exam: Physical Exam: General: In no acute distress, stated age, well-nourished, good hygiene HEENT: Normocephalic, atraumatic, no scleral icterus, pupils around round, symmetrical, and reactive to light, moist mucus membranes, trachea midline, no thyromegaly Chest/Pulm: No respiratory distress, symmetrical chest expansion, clear breath sounds throughout Cardiac: RRR, 2/6 systolic murmur noted Abdomen: Negative for ascites and bruising, normoactive bowel sounds, soft, non-tender to palpation throughout Musculoskeletal: Symmetrical and without signs of acute trauma, upper and lower extremities with full ROM, no atrophy, spasticity, or flaccidity Extremities: Radial, dorsalis pedis, and posterior tibial pulses are intact and symmetrical, no edema noted in the BL LE's Skin: Warm, dry, no rashes , lesions, or scars noted Neuro: Alert and oriented to person, place, month, year, and president, no focal defects, CN II-XII tested and intact, negative BL cerebellar testing and pronator drift, no tremors noted Psych: No acute distress, calm and cooperative during the exam Results & Data Results & Data Vital Signs (Past 12 Hours) Vital Signs Temp Pulse Pulse Resp BP BP Pulse Ox 06/20/23 13:09 58 L 16 177/102 H 95 06/20/23 13:09 95 06/20/23 12:52 63 06/20/23 12:21 36.8 C 64 18 171/91 H 94 O2 Del Method 06/20/23 13:09 Room Air 06/20/23 13:09 Room Air 06/20/23 12:52 06/20/23 12:21 Room Air Laboratory Results Abnormal lab results 06/20/23 06/20/23 Range/Units 12:32 13:52 RDW Std Deviation 46.6 H (36.4-46.3) fL Wake # (Auto) 0.75 H (0.11-0.59) K/uL Sodium 135 L (136-145) mmol/L Creatinine 1.50 H (0.6-1.4) mg/dl Glucose 135 H (70-99(Fasting)) mg/dl POC Glucose 128 H (70-99) mg/dl Diagnostic Findings Head CT 06/20/23 12:28 CT angio head w con, CT head/brain wo con CLINICAL HISTORY: neuro deficit, acute stroke suspected TECHNIQUE: Contiguous axial CT images of the head were acquired from the base of the skull to the vertex without intravenous contrast administration. CT angiography of the head and neck was performed following intravenous administration of iodinated contrast. Coronal and sagittal MIPS were obtained from the axial data set and were submitted for review. Automated dose lowering techniques and/or adjustment according to patient size were utilized for this examination. All measurements were calculated based on NASCET criteria. CT DOSE: Comparison: None available at the time of this dictation. FINDINGS: CT head: There is no acute intracranial hemorrhage or evidence of acute territorial infarction. No shift of the midline structures, mass effect, or extra-axial abnormalities are shown. Lungs and soft tissues are unremarkable. CTA Neck: A 3 vessel aortic arch is shown. There is no significant atherosclerotic plaque in the aortic arch or the origins of the innominate, left common carotid, and left subclavian arteries. The common carotid, external carotid, cervical segments of the internal carotid arteries, and the cervical segments of the vertebral arteries are patent without hemodynamically significant stenosis. The left vertebral artery is dominant. CTA Head: The anterior and posterior cerebral circulations are patent. No hemodynamically significant stenosis, aneurysm, dissection, or arteriovenous malformation is shown. IMPRESSION: 1. No acute intracranial hemorrhage, evidence of acute territorial infarction, or other acute intracranial disease process. 2. No occlusion, hemodynamically significant stenosis, or dissection in the major cervical arteries. 3. No occlusion, hemodynamically significant stenosis, aneurysm, dissection, or arteriovenous malformation in the major intracranial arteries. Assessment of stenosis of the internal carotid arteries is based on NASCET criteria. ACT 112: Negative or not required by law. Electronically signed by: Jhonatan Walton M.D. 06/20/2023 1:39 PM Head CTA 06/20/23 12:28 CT angio head w con, CT head/brain wo con CLINICAL HISTORY: neuro deficit, acute stroke suspected TECHNIQUE: Contiguous axial CT images of the head were acquired from the base of the skull to the vertex without intravenous contrast administration. CT angiography of the head and neck was performed following intravenous administration of iodinated contrast. Coronal and sagittal MIPS were obtained from the axial data set and were submitted for review. Automated dose lowering techniques and/or adjustment according to patient size were utilized for this examination. All measurements were calculated based on NASCET criteria. CT DOSE: Comparison: None available at the time of this dictation. FINDINGS: CT head: There is no acute intracranial hemorrhage or evidence of acute territorial infarction. No shift of the midline structures, mass effect, or extra-axial abnormalities are shown. Lungs and soft tissues are unremarkable. CTA Neck: A 3 vessel aortic arch is shown. There is no significant atherosclerotic plaque in the aortic arch or the origins of the innominate, left common carotid, and left subclavian arteries. The common carotid, external carotid, cervical segments of the internal carotid arteries, and the cervical segments of the vertebral arteries are patent without hemodynamically significant stenosis. The left vertebral artery is dominant. CTA Head: The anterior and posterior cerebral circulations are patent. No hemodynamically significant stenosis, aneurysm, dissection, or arteriovenous malformation is shown. IMPRESSION: 1. No acute intracranial hemorrhage, evidence of acute territorial infarction, or other acute intracranial disease process. 2. No occlusion, hemodynamically significant stenosis, or dissection in the major cervical arteries. 3. No occlusion, hemodynamically significant stenosis, aneurysm, dissection, or arteriovenous malformation in the major intracranial arteries. Assessment of stenosis of the internal carotid arteries is based on NASCET criteria. ACT 112: Negative or not required by law. Electronically signed by: Jhonatan Walton M.D. 06/20/2023 1:39 PM Neck CTA 06/20/23 12:28 CT angio neck with con CLINICAL HISTORY: neuro deficit, acute stroke suspected TECHNIQUE: Contiguous axial CT images of the head were acquired from the base of the skull to the vertex without intravenous contrast administration. CT angiography of the head and neck was performed following intravenous administration of iodinated contrast. Coronal and sagittal MIPS were obtained from the axial data set and were submitted for review. Automated dose lowering techniques and/or adjustment according to patient size were utilized for this e xamination. All measurements were calculated based on NASCET criteria. CT DOSE: 1206.65 mGy.cm Comparison: None available at the time of this dictation. FINDINGS: CT head: There is no acute intracranial hemorrhage or evidence of acute territorial infarction. No shift of the midline structures, mass effect, or extra-axial abnormalities are shown. Lungs and soft tissues are unremarkable. CTA Neck: A 3 vessel aortic arch is shown. There is no significant atherosclerotic plaque in the aortic arch or the origins of the innominate, left common carotid, and left subclavian arteries. The common carotid, external carotid, cervical segments of the internal carotid arteries, and the cervical segments of the vertebral arteries are patent without hemodynamically significant stenosis. The left vertebral artery is dominant. CTA Head: The anterior and posterior cerebral circulations are patent. No hemodynamically significant stenosis, aneurysm, dissection, or arteriovenous malformation is shown. IMPRESSION: 1. No acute intracranial hemorrhage, evidence of acute territorial infarction, or other acute intracranial disease process. 2. No occlusion, hemodynamically significant stenosis, or dissection in the major cervical arteries. 3. No occlusion, hemodynamically significant stenosis, aneurysm, dissection, or arteriovenous malformation in the major intracranial arteries. Assessment of stenosis of the internal carotid arteries is based on NASCET criteria. ACT 112: Negative or not required by law. Electronically signed by: Jhonatan Walton M.D. 06/20/2023 1:30 PM ECG Additional Comments: Sinus bradycardia with marked sinus arrhythmia Possible Left atrial enlargement Minimal voltage criteria for LVH, may be normal variant ( R in aVL ) Borderline ECG When compared with ECG of 14-NOV-2022 16:23, Sinus rhythm has replaced Ectopic atrial rhythm Questionable change in QRS axis Code Status & VTE Plan Code Status Full code VTE Prophylaxis Plan VTE Prophylaxis will be ordered: Yes Supervising Physician Co-Signing Physician Notes I personally saw and examined the patient. I verified all marcus points and agree with Bal Rico PA-C with the following exceptions and/or additions: 68 year old male presents to the ER with left sided weakness around 11:30am lasting for only a few seconds but with rapid improvement improvement. Currently feels mildly fatigued but otherwise back to his baseline. No urinary symptoms. O/E A&Ox3, HS RRR, no murmurs, Chest CTAB, CN 2-> 12 intact, no pronator drift, all 4 extremities with 5/5 power and sensation intact, normal speech exam A/P Stroke-like symptoms - concerning for TIA with history of this in the past although rapid resolution in symptoms his elevated BP fits this diagnosis. ABCD2 score 4 - will observe in hospital for stroke workup, TTE, brain MRI, neuro consult. Generalized fatigue - UA concerning for infection although not having any symptoms of this. PVR normal. History of prostate surgery and bladder diverticular. Get blood cultures and start IV ceftriaxone pending culture results. PG Care Time/CCT Total # of Minutes Spent Total Time Spent with Patient: Total time spent is greater than 50% in coordination of care (as documented) at patient's floor/unit and/or counseling patient: Coding [place] [address] INT INP/OBS CARE 2/55MIN Patient Type Established Medical Decision Making Moderate Complexity Diagnoses Stroke-like symptoms R29.90 Hypertension I10 High cholesterol E78.00
[2023-06-20] MEDS ORDERED: PHARMACIST DISCHARGE MED REC CONSULT PRN (14:30)
[2023-06-20] MEDS ORDERED: ACETAMINOPHEN 325 MG TAB PO STA (14:32)
[2023-06-20] MEDS ORDERED: LACTATED RINGER'S 500 ML IV ONE (14:34)
[2023-06-20 15:14] LABS: Appearance Urine Clear (Clear); Bacteria Urine Automated 4+ (Negative); Bilirubin Urine Negative (Negative); Blood Urine 1+ (Negative); Color Urine Yellow; Epithelial Cell Urine Auto 0-5 /lpf (0-5); Glucose Urine UA Negative (Negative); Ketones Urine Negative (Negative); Leukocyte Esterase Urine 1+ (Negative); Nitrite Urine Negative (Negative); Protein Urine Negative (Negative); RBC Urine Automated 0-4 /hpf (0-4); Specific Gravity Urine 1.027 (1.000-1.030); Urobilinogen Urine Negative (Negative); WBC Urine Automated >30 /hpf (0-5)
[2023-06-20] MEDS ORDERED: ACETAMINOPHEN 325 MG TAB PO PRN (15:40)
--- NOTE | 2023-06-20 16:03 | XRay Report ---
XR chest 1V portable CLINICAL HISTORY: weakness TECHNIQUE: Single frontal radiograph of the chest was obtained. Comparison: Comparison is made to chest radiograph 10/25/2015 FINDINGS: No lines and tubes are seen. The cardiomediastinal silhouette is normal. The lungs are clear. No evid ence of pleural effusion or pneumothorax. IMPRESSION: No acute chest disease. ACT 112: Negative or not required by law. Electronically signed by: Jhonatan Walton M.D. 06/20/2023 4:02 PM
--- NOTE | 2023-06-20 17:19 | Magnetic Resonance Report ---
MR brain wo con CLINICAL HISTORY: stroke workup TECHNIQUE: Multiplanar and multisequence MR images of the brain were obtained without intravenous con trast. Comparison: Comparison is made to MRI brain 10/25/2015 and CTA head and neck 06/20/2023 FINDINGS: No abnormal restricted diffusion is identified. Foci of T2 and FLAIR hyperintensity are noted in the paraventricular areas consistent with chronic small vessel ischemic disease. Ex vacuo ventriculomegal y and sulcal enlargement is noted compatible with diffuse volume loss. No mass is seen. There is no m ass effect or midline shift. There is no evidence of acute intraparenchymal hemorrhage. No extra axia l fluid collections are seen. The corpus callosum, pituitary gland, and cerebellar tonsils appear alessia ssly unremarkable. Flow voids of the major intracranial arterial vessels are identified. The imaged portions of the para nasal sinuses, mastoid air cells, and orbits are unremarkable. IMPRESSION: No acute abnormality and in particular no evidence of acute infarct. ACT 112: Negative or not required by law. Electronically signed by: Jhonatan Walton M.D. 06/20/2023 5:16 PM
[2023-06-20] MEDS ORDERED: cefTRIAXone SODIUM 1,000 MG in DEXTROSE 5 % MINI-B 50 ML IV SCH (19:30)
[2023-06-20] MEDS ORDERED: cefTRIAXone SODIUM 2,000 MG in DEXTROSE 5 % MINI-B 50 ML IV SCH (19:45)
[2023-06-20] MEDS ORDERED: ATORVASTATIN 40 MG TAB PO SCH (21:00)
[2023-06-20] MEDS ORDERED: METOPROLOL SUCC 25MG EXT REL TAB PO SCH (21:00)
--- NOTE | 2023-06-20 22:39 | Electrocardiogram Report ---
Test Reason : Blood Pressure : / mmHG Vent. Rate : 058 BPM Atrial Rate : 058 BPM P-R Int : 170 ms QRS Dur : 102 ms QT Int : 438 ms P-R-T Axes : 064 -28 062 degrees QTc Int : 429 ms Sinus bradycardia with marked sinus arrhythmia Possible Left atrial enlargement Minimal voltage criteria for LVH, may be normal variant ( R in aVL ) Borderline ECG When compared with ECG of 14-NOV-2022 16:23, Prior tracing has arm lead reversal Confirmed by Victoriano Dailey ([id number]) on 06/20/2023 10:38:55 PM Referred By: REFERRED SELF Confirmed By:Victoriano Dailey
[2023-06-21 06:55] LABS: Basophils # (auto) 0.05 K/uL (0.00-0.20); Basophils % (auto) 0.7 %; Eosinophils # (auto) 0.13 K/uL (0.00-0.50); Eosinophils % (auto) 1.9 %; Hematocrit (blood only) 43.7 % (42.0-52.0); Hemoglobin 14.7 g/dl (14.0-18.0); Immature Granulocytes # (auto) 0.03 K/uL (0.01-0.20); Immature Granulocytes % (auto) 0.4 %; Lymphocytes # (auto) 1.29 K/uL (1.20-3.40); Lymphocytes % (auto) 19.1 %; Mean Corpuscular Hemoglobin 30.6 pg (25.0-34.0); Mean Corpuscular Hgb Conc 33.6 g/dL (32.0-36.0); Mean Corpuscular Volume 90.9 fL (80.0-100.0); Monocytes # (auto) 0.73 K/uL (0.11-0.59); Monocytes % (auto) 10.8 %; Neutrophils # (auto) 4.52 K/uL (1.40-6.50); Neutrophils % (auto) 67.1 %; Platelet Count 173 K/uL (130-400); RDW Coefficient of Variation 13.9 % (11.5-14.5); RDW Standard Deviation 46.8 fL (36.4-46.3); Red Blood Count 4.81 M/uL (4.70-6.10); White Blood Count 6.75 K/ul (4.8-10.8)
[2023-06-21 07:20] LABS: Albumin Globulin Ratio 1.3 (0.9-2); Albumin Level 3.8 gm/dl (3.4-5.0); BUN Creatinine Ratio 12.7 (10-20); Bilirubin,Total 0.5 mg/dl (0.2-1.0); Calcium 8.2 mg/dl (8.6-10.3); Chol HDL Ratio 5.2 (0-5); Creatinine Clr Calc Pharmacy 55.5 ml/min; Est GFR (African American) 51.4 ml/min; Est GFR (Non-African American) 44.3 ml/min; Globulin 2.9 gm/dl (2.5-4.0); Potassium 3.9 mmol/L (3.5-5.1); Total Protein 6.7 gm/dl (6.0-8.3)
[2023-06-21 07:30] LABS: Prothrombin Time 11.4 Seconds (9.0-12.0)
--- NOTE | 2023-06-21 08:06 | Hospitalist Progress Note ---
Date of Service June 21, 2023 Assessment & Plan (1) Stroke-like symptoms: Plan: Possible TIA - multiple stroke risk factors, history of prior TIA, transient L sided weakness -Currently stable with mild headache and brain fog but denies focal defects at this time -Patient has a hx of TIA and was previously on Aspirin, but this was discontinued after he developed gross hematuria with acute blood loss anemia in November after cystoscopy with transurethral laser enucleation of his prostate gland on 10/26/2022 at [facility]. -CT of the head/brain wo con, CTA head, and CTA neck reviewed and unremarkable -MRI brain with small vessel disease, no acute infarct -S/P 324 mg Aspirin in the ED, continue ASA 81 mg daily -TTE ordered -AM Hgb A1c -P and fasting lipid panel - LDL 123 above doal on atorvastatin 80 mg -Fall precautions, PT/OT consults, Neurology consult Treating for possible UTI with IV ceftriaxone - abnormal UA (though all previous UAs have been abnormal as well) and culture quickly growing gram negative rods. unclear whether this is symptomatic UTI or asymptomatic bacteriuria. Does not explain transient/focal L sided weakness very well, though could account for the more vague malaise and brain fog (2) Hypertension: Plan: -continue lisinopril and metoprolol (3) High cholesterol: Plan: -Continue statin Plan CKD stage 3 - Cr 1.5, may be slightly elevated if baseline closer to 1.3. avoid nephrotoxins, continue Black DVT ppx - low risk, add if not discharging home by tomorrow AM Admission and Anticipated Discharge Date Admission Date: June 20, 2023 Results & Data Results & Data Vital Signs (Past 12 Hours) Vital Signs Temp Pulse Pulse Resp BP Pulse Ox O2 Del Method 06/21/23 07:55 36.7 C 56 L 18 143/85 H 95 Room Air 06/21/23 07:41 70 06/21/23 04:03 36.5 C 65 16 113/70 96 Room Air 06/21/23 01:13 73 06/20/23 23:10 37 C 84 18 162/77 H 94 Nasal Cannula O2 Flow Rate 06/21/23 07:55 06/21/23 07:41 06/21/23 04:03 06/21/23 01:13 06/20/23 23:10 4 Laboratory Results 06/21/23 05:57 06/21/23 05:[address] 06/20/23 12:28 CT angio head w con, CT head/brain wo con CLINICAL HISTORY: neuro deficit, acute stroke suspected TECHNIQUE: Contiguous axial CT images of the head were acquired from the base of the skull to the vertex without intravenous contrast administration. CT angiography of the head and neck was performed following intravenous administration of iodinated contrast. Coronal and sagittal MIPS were obtained from the axial data set and were submitted for review. Automated dose lowering techniques and/or adjustment according to patient size were utilized for this examination. All measurements were calculated based on NASCET criteria. CT DOSE: Comparison: None available at the time of this dictation. FINDINGS: CT head: There is no acute intracranial hemorrhage or evidence of acute territorial infarction. No shift of the midline structures, mass effect, or extra-axial abnormalities are shown. Lungs and soft tissues are unremarkable. CTA Neck: A 3 vessel aortic arch is shown. There is no significant atherosclerotic plaque in the aortic arch or the origins of the innominate, left common carotid, and left subclavian arteries. The common carotid, external carotid, cervical segments of the internal carotid arteries, and the cervical segments of the vertebral arteries are patent without hemodynamically significant stenosis. The left vertebral artery is dominant. CTA Head: The anterior and posterior cerebral circulations are patent. No hemodynamically significant stenosis, aneurysm, dissection, or arteriovenous malformation is shown. IMPRESSION: 1. No acute intracranial hemorrhage, evidence of acute territorial infarction, or other acute intracranial disease process. 2. No occlusion, hemodynamically significant stenosis, or dissection in the major cervical arteries. 3. No occlusion, hemodynamically significant stenosis, aneurysm, dissection, or arteriovenous malformation in the major intracranial arteries. Assessment of stenosis of the internal carotid arteries is based on NASCET criteria. ACT 112: Negative or not required by law. Electronically signed by: Jhonatan Walton M.D. 06/20/2023 1:39 PM Head CTA 06/20/23 12:28 CT angio head w con, CT head/brain wo con CLINICAL HISTORY: neuro deficit, acute stroke suspected TECHNIQUE: Contiguous axial CT images of the head were acquired from the base of the skull to the vertex without intravenous contrast administration. CT angiography of the head and neck was performed following intravenous administration of iodinated contrast. Coronal and sagittal MIPS were obtained from the axial data set and were submitted for review. Automated dose lowering techniques and/or adjustment according to patient size were utilized for this examination. All measurements were calculated based on NASCET criteria. CT DOSE: Comparison: None available at the time of this dictation. FINDINGS: CT head: There is no acute intracranial hemorrhage or evidence of acute territorial infarction. No shift of the midline structures, mass effect, or extra-axial abnormalities are shown. Lungs and soft tissues are unremarkable. CTA Neck: A 3 vessel aortic arch is shown. There is no significant atherosclerotic plaque in the aortic arch or the origins of the innominate, left common carotid, and left subclavian arteries. The common carotid, external carotid, cervical segments of the internal carotid arteries, and the cervical segments of the vertebral arteries are patent without hemodynamically significant stenosis. The left vertebral artery is dominant. CTA Head: The anterior and posterior cerebral circulations are patent. No hemodynamically significant stenosis, aneurysm, dissection, or arteriovenous malformation is shown. IMPRESSION: 1. No acute intracranial hemorrhage, evidence of acute territorial infarction, or other acute intracranial disease process. 2. No occlusion, hemodynamically significant stenosis, or dissection in the major cervical arteries. 3. No occlusion, hemodynamically significant stenosis, aneurysm, dissection, or arteriovenous malformation in the major intracranial arteries. Assessment of stenosis of the internal carotid arteries is based on NASCET criteria. ACT 112: Negative or not required by law. Electronically signed by: Jhonatan Walton M.D. 06/20/2023 1:39 PM Neck CTA 06/20/23 12:28 CT angio neck with con CLINICAL HISTORY: neuro deficit, acute stroke suspected TECHNIQUE: Contiguous axial CT images of the head were acquired from the base of the skull to the vertex without intravenous contrast administration. CT angiography of the head and neck was performed following intravenous administration of iodinated contrast. Coronal and sagittal MIPS were obtained from the axial data set and were submitted for review. Automated dose lowering techniques and/or adjustment according to patient size were utilized for this examination. All measurements were calculated based on NASCET criteria. CT DOSE: 1206.65 mGy.cm Comparison: None available at the time of this dictation. FINDINGS: CT head: There is no acute intracranial hemorrhage or evidence of acute territorial infarction. No shift of the midline structures, mass effect, or extra-axial abnormalities are shown. Lungs and soft tissues are unremarkable. CTA Neck: A 3 vessel aortic arch is shown. There is no significant atherosclerotic plaque in the aortic arch or the origins of the innominate, left common carotid, and left subclavian arteries. The common carotid, external carotid, cervical segments of the internal carotid arteries, and the cervical segments of the vertebral arteries are patent without hemodynamically significant stenosis. The left vertebral artery is dominant. CTA Head: The anterior and posterior cerebral circulations are patent. No hemodynamically significant stenosis, aneurysm, dissection, or arteriovenous malformation is shown. IMPRESSION: 1. No acute intracranial hemorrhage, evidence of acute territorial infarction, or other acute intracranial disease process. 2. No occlusion, hemodynamically significant stenosis, or dissection in the major cervical arteries. 3. No occlusion, hemodynamically significant stenosis, aneurysm, dissection, or arteriovenous malformation in the major intracranial arteries. Assessment of stenosis of the internal carotid arteries is based on NASCET criteria. ACT 112: Negative or not required by law. Electronically signed by: Jhonatan Walton M.D. 06/20/2023 1:30 PM Brain MRI 06/20/23 14:30 MR brain wo con CLINICAL HISTORY: stroke workup TECHNIQUE: Multiplanar and multisequence MR images of the brain were obtained without intravenous contrast. Comparison: Comparison is made to MRI brain 10/25/2015 and CTA head and neck 06/20/2023 FINDINGS: No abnormal restricted diffusion is identified. Foci of T2 and FLAIR hyperintensity are noted in the paraventricular areas consistent with chronic small vessel ischemic disease. Ex vacuo ventriculomegaly and sulcal enlargement is noted compatible with diffuse volume loss. No mass is seen. There is no mass effect or midline shift. There is no evidence of acute intraparenchymal hemorrhage. No extra axial fluid collections are seen. The corpus callosum, pituitary gland, and cerebellar tonsils appear grossly unremarkable. Flow voids of the major intracranial arterial vessels are identified. The imaged portions of the paranasal sinuses, mastoid air cells, and orbits are unremarkable. IMPRESSION: No acute abnormality and in particular no evidence of acute infarct. ACT 112: Negative or not required by law. Electronically signed by: Jhonatan Walton M.D. 06/20/2023 5:16 PM Chest X-Ray 06/20/23 14:50 XR chest 1V portable CLINICAL HISTORY: weakness TECHNIQUE: Single frontal radiograph of the chest was obtained. Comparison: Comparison is made to chest radiograph 10/25/2015 FINDINGS: No lines and tubes are seen. The cardiomediastinal silhouette is normal. The lungs are clear. No evidence of pleural effusion or pneumothorax. IMPRESSION: No acute chest disease. ACT 112: Negative or not required by law. Electronically signed by: Jhonatan Walton M.D. 06/20/2023 4:02 PM PG Care Time/CCT Total # of Minutes Spent Total Time Spent with Patient: Total time spent is greater than 50% in coordination of care (as documented) at patient's floor/unit and/or counseling patient: Coding Diagnoses Stroke-like symptoms R29.90 Hypertension I10 High cholesterol E78.00
--- NOTE | 2023-06-21 08:29 | Neurology Consultation ---
Date of Consultation June 21, 2023 Assessment & Plan (1) Left arm weakness: (2) Hypertension: (3) TIA (transient ischemic attack): Plan This patient had an episode of transient (very brief) left arm and leg weakness (5-10 seconds according to the patient) followed by a left-sided headache lasting about 2 hours. Currently, he is asymptomatic and his neurologic examination is normal with no focal findings, meningeal signs, or encephalopathy. The patient had hypertension on admission and is now much improved. MRI of the brain showed no acute stroke. There was very minimal old small- vessel ischemic disease noted. The etiology of this event could be consistent with a very brief TIA, however, given the nature of the symptoms with the headache, a mild migraine (vasospasm caused by hypertension) is possible as well Recommendations: 1. Continue 81 mg aspirin tablet daily. 2. Continue atorvastatin 80 mg daily 3. Control blood pressure as you are doing, aiming for a mean arterial pressure of 95-100. 4. Increase activity as able 5. Awaiting hemoglobin A1c and echocardiogram. 6. Follow-up with PCP Overall, I spent a total of 75 minutes with this case, including review of records, review of MRI films, direct evaluation of the patient, report generatio n, and discussion of the case with the patient and RN at bedside, and Dr. Miguel including differential diagnosis and treatment options. History of Present Illness Reason for Consultation: Patient is a 68-year-old, who I was asked to see the request of Dr. Shepard, for neurologic evaluation regarding probable TIA Requesting Physician: Dr. Shepard Attending Physician: Zuleika Miguel MD History of Present Illness This patient has a history of hypertension for 20 years, dyslipidemia, and benign prostatic hypertrophy. He tells me that approximately 10 years ago he was admitted for left-sided weakness including the arm and leg lasting approximately 1 minute. He had some nausea and his blood pressure was elevated. He was told that he had a small CVA but I do not have any records regarding this. According to our records, in October of 2015 he had an MRI of the brain for the acute left-sided weakness and was unremarkable with no acute stroke. He had minimal old small-vessel ischemic disease. In October of this year he had some urologic procedures, including a laser enucleation of the prostate followed by hematuria and clots regarding additional urologic procedures. The patient was doing well on June 20 and was at work at the [employer] her walking a whole way when he had the sudden onset of some weakness in the left arm and left leg. This lasted about 5-10 seconds and was followed by a significant heaviness in the left side of his head lasting an hour to. He had no further symptoms or issues and he has had no recurrence or problems being currently asymptomatic. He arrived at the emergency room June 20 at 12:21 p.m. with a temperature of 36.8, pulse 64 regular, respiratory rate 18, blood pressure 171/91, and O2 saturation 94%. His symptoms had resolved (other than the left-sided headache) and his NIH stroke scale was 0. CBC and Chem profile were largely unremarkable except for mildly elevated creatinine and a glucose of 128. CT scan of the head was unremarkable. CT angiography of the head and neck were also unremarkable with no significant vessel stenoses or anomalies. MRI of the brain revealed no acute stroke. There was very mild old small-vessel ischemic disease noted. I reviewed these films. Triglycerides were 136 total cholesterol 186. Blood pressure this morning is 113/70 and he has been in normal sinus rhythm with few PVCs overnight. Urinalysis has grown some gram-negative bacilli but cultures are pending. Patient was given aspirin and currently is on ceftriaxone This morning the patient has no symptoms of pain, weakness, headache, vision issues, speech problems, mentation issues or balance problems. Echocardiogram and hemoglobin A1c are pending. Allergies Allergy/AdvReac Type Severity Reaction Status Date / Time No Known Allergies Allergy Unknown ` Verified 11/13/22 00:36 Home Medications Medication Instructions Recorded Confirmed Type magnesium 250 mg tablet 250 mg PO DAILY PRN Leg Spasm 02/15/21 06/20/23 History metoprolol succinate 25 mg 12.5 mg PO HS 02/15/21 06/20/23 History tablet,extended release 24 hr atorvastatin 80 mg tablet 80 mg PO HS 09/11/22 06/20/23 History lisinopril 20 mg tablet 20 mg PO DAILY 11/13/22 06/20/23 History cyanocobalamin (vitamin B-12) 1,000 mcg PO DAILY #90 caps 11/15/22 06/20/23 Rx 1,000 mcg capsule Patient History Medical History BPH (benign prostatic hyperplasia) High cholesterol Hypertension Acute retention of urine Elevated prostate specific antigen (PSA) Hematuria TIA (transient ischemic attack) Surgical History No pertinent past surgical history Family History Mother , in her mid 80s of pancreatic cancer Pancreatic cancer Father , mid 80s of bladder cancer Bladder cancer Social History (Updated 06/21/23 @ 08:20 by Osmel Dee MD) Smoking Status: Never smoker Second Hand Exposure: No; Do You Dip or Chew Tobacco: No; Hx Alcohol Use: Yes Alcohol type: wine Alcohol Intake Frequency: Monthly or Less Hx Substance Use: No Preferred Language: Kazakh Communication Ability: Effective Refractory Worker Required: No Beliefs That Will Affect Care: None Current Living Situation: Alone Current Living Situation Comment: Lives home by himself current occupational status: employed 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 Feels Safe at Home: Yes Assistive Devices: None Review of Systems Constitutional: no fever, no fatigue and no weakness Eyes: no diplopia, no eye pain and no worsening vision Ear, Nose, Mouth, Throat: no ear pain, no tinnitus, no hearing loss, no dizziness, no snoring, no hoarseness and no dysphagia Respiratory: no cough and no dyspnea Cardiovascular: no chest pain, no palpitations and no lightheadedness Gastrointestinal: no abdominal pain, no nausea and no vomiting Musculoskeletal: no back pain, no neck pain, no radicular pain, no joint pain and no myalgia Integumentary: no rash and no lesions Neurologic: no gait abnormality, no localized weakness, no generalized weakness, no tingling, no numbness, no tremor(s), no abnormal movements, no headache(s), no abnormal speech, no confusion and no memory loss Psychiatric: no depression, no irritability, no anxiety, no difficulty concentrating, no confusion and no hallucinations Endocrine: no fatigue and no flushing Hematologic / Lymphatic: no easy bleeding and no easy bruising Allergy / Immunological: no urticaria and no problem reported Exam (Neuro) Physical Exam: The patient is right-handed. The patient is awake, alert, and attentive. Speech is normal without any aphasia or dysarthria. The patient can name objects, repeat phrases, and has normal spontaneous speech. Mentation and thought processes are intact, with orientation to person, place and time, and normal fund of knowledge. Attention and concentration are normal. Mood and affect are normal and appropriate. General appearance and grooming are normal. Short and long-term memory are intact. Pupils are 3 mm bilaterally and reactive to light. Extraocular eye muscles are intact without nystagmus. Visual acuity and visual valladares seem normal grossly to confrontation. There are no deficits to sensation in the face in all 3 distributions of the fifth cranial nerve bilaterally. Corneal reflexes are positive bilaterally. Facial strength and symmetry was normal bilaterally. Hearing seems normal bilaterally. Palate moves well without asymmetry. There is normal sternocleidoma stoid and trapezius (shoulder shrug) strength bilaterally. Tongue is midline with good strength bilaterally. Neck has a full range of motion without discomfort. There are no cervical bruits bilaterally. There are no cranial or ocular bruits. There is a regular rhythm and rate. Cervical, thoracic, and lumbar spine are nontender to palpation. Gait is narrow based, with good arm swing, turns, and stance. Balance is normal eyes open or closed. With outstretched arms there is no drift. There are no resting, postural, or action tremors. There is no ataxia with finger to nose testing. There is good facility in the hands. No other abnormal involuntary movements are noted. Motor strength is 5/5 diffusely in the arms bilaterally including deltoids, biceps, triceps, brachioradialis, wrist flexors and extensors, medical administrator, and intrinsic hand muscles. Motor strength is 5/5 diffusely in the legs bilaterally including hip flexors, quadriceps, hamstrings, gastrocnemius, tibialis anterior, tibialis posterior, and Peroneii muscles. Toe extensors are normal and there is good bulk in the extensor digitorum brevis muscles bilaterally. The limbs have good tone without rigidity or spasticity. There is no atrophy noted in the muscles. Muscle bulk is normal, there is no tenderness to palpation, no myotonia to percussion, and no fasciculations seen. Sensory examination is intact to touch and pin throughout all 4 limbs diffusely. Reflexes are 1/4 in the biceps, triceps, brachioradialis, quadriceps, and Achilles tendons bilaterally. There is no clonus bilaterally. Toes are downgoing with plantar stimulation bilaterally. Peripheral pulses are present and of normal quality distally in all 4 limbs. There is no peripheral edema noted in the limbs. Results & Data Vital Signs (Past 12 Hours) Vital Signs Temp Pulse Pulse Resp BP Pulse Ox O2 Del Method 06/21/23 07:55 36.7 C 56 L 18 143/85 H 95 Room Air 06/21/23 07:41 70 06/21/23 04:03 36.5 C 65 16 113/70 96 Room Air 06/21/23 01:13 73 06/20/23 23:10 37 C 84 18 162/77 H 94 Nasal Cannula O2 Flow Rate 06/21/23 07:55 06/21/23 07:41 06/21/23 04:03 06/21/23 01:13 06/20/23 23:10 4 PG Care Time/CCT Total # of Minutes Spent Total Time Spent with Patient: Total time spent is greater than 50% in coordination of care (as documented) at patient's floor/unit and/or counseling patient: Coding Level of Care Code 87698 INT INP/OBS CARE 3/75MIN Diagnoses Left arm weakness R29.898 Hypertension I10 Hypertension type: unspecified TIA (transient ischemic attack) G45.9 Time Spent (min) 75 (2) Hypertension Hypertension type: unspecified Qualified Code(s): I10 - Essential (primary) hypertension
[2023-06-21 08:30] LABS: Estimated Average Glucose 108 mg/dl; Hemoglobin A1C 5.4 % (4.5-5.6)
[2023-06-21] MEDS ORDERED: ASPIRIN 81 MG ECTAB PO SCH (09:00)
[2023-06-21] MEDS ORDERED: lisinopril 20 MG TAB PO SCH (09:00)
[2023-06-21] MEDS ORDERED: STROKE PATIENT DISCHARGE STA (10:03)
--- NOTE | 2023-06-21 10:27 | Pharmacy Report ---
- Date of Service June 21, 2023 - Pharmacy CVA/TIA Medication Review Medications to Prevent Stroke handout has been added to the patients discharge packet. Antiplatelet(s) * Continue aspirin 81mg tablet daily Cholesterol * High intensity statin: atorvastatin 80 mg daily DVT Prophylaxis * Bilateral TEDs * Pharmacologic DVT prophylaxis deferred due to risk of hematuria on aspirin Therapeutic Anticoagulation * No history of Afib/Aflutter noted Type 2 Diabetes * Patient does not have T2DM
--- NOTE | 2023-06-21 10:57 | XCELERA ---
[id number] \\[email or web address]\[id number]
--- NOTE | 2023-06-21 18:26 | Discharge Summary ---
Date of Service June 21, 2023 Admission HPI Per Admitting Provider Victoriano is a 68 year old male with a PMH significant for previous TIA (Of anticoagulation/antiplatelets due to hematuria), gross hematuria status post prostate surgery, irregular heart rhythm, acute blood loss anemia, acute UTI, BPH, hypercholesterolemia, hypertension who presented to the [facility] ED on 06/20 for left sided weakness while at work. He was noted to be hypertensive at 177/102 but otherwise stable. Labs including CBC, CMP, and high sen trop were unremarkable. CT of the head/brain wo con, CTA head, and CTA neck were all read as negative for acute findings. The patient's left sided weakness resolved while in the ED but he was still experiencing a mild headache. Prior to admission the patient was given 324 mg Aspirin. At the time of the exam the patient was lying in bed in no acute distress. He states that he was in his normal state of health when he woke today. He works at the [employer] [place] 1130 when he had a sudden onset of left-sided weakness. He states that the feeling of weakness only lasted for "a few seconds" and resolved spontaneously. However, he developed a mild headache and brain fog after his initial symptoms resolved. Because of his hx of previous TIA he decided to be evaluated in the ED. He denies changes in vision, hearing, taste, and smell, current unilateral weakness, paresthesias, chest pain, SOB, heart palpitations, vomiting, diarrhea, dysuria, hematuria, melena, LE swelling, and recent trauma. His only symptoms at this time are mild nausea, fatigue, and mild brain fog. He was previously on a baby aspirin for his TIA but this was discontinued after he had multiple admissions earlier this year due to gross hematuria. He had cystoscopy with transurethral laser enucleation of his prostate gland on 10/26/2022 at [facility]. This along with possible UTI were thought to be the cause of his hematuria. He denies any recent hematuria or bleeding of any kind. We discussed code status, he wishes to be a full code and for his son to make medical decisions for him if he cannot make them himself. Principal Diagnosis Complex migraine versus TIA Discharge Exam AOx4, comfortable and well appearing Face symmetric, speech normal, maewx4, walks well with steady gait Heart reg syst M present, no JVD Lungs CTAB normal resp effort Abd s/nd Ext wwp no edema Skin w/d no rashes Discharge Data Allergies Allergy/AdvReac Type Severity Reaction Status Date / Time No Known Allergies Allergy Unknown ` Verified 11/13/22 00:36 Consultations 06/20/23 13:59 ED Decision to Admit Stat 06/20/23 23:54 Consult Neurology Routine Ordered Studies 06/20/23 12:28 CT angio head w con Stat CT angio neck with con Stat CT head/brain wo con Stat 06/20/23 14:30 MR brain wo con Routine Head CT 06/20/23 12:28 CT angio head w con, CT head/brain wo con CLINICAL HISTORY: neuro deficit, acute stroke suspected TECHNIQUE: Contiguous axial CT images of the head were acquired from the base of the skull to the vertex without intravenous contrast administration. CT angiography of the head and neck was performed following intravenous administration of iodinated contrast. Coronal and sagittal MIPS were obtained from the axial data set and were submitted for review. Automated dose lowering techniques and/or adjustment according to patient size were utilized for this examination. All measurements were calculated based on NASCET criteria. CT DOSE: Comparison: None available at the time of this dictation. FINDINGS: CT head: There is no acute intracranial hemorrhage or evidence of acute territorial infarction. No shift of the midline structures, mass effect, or extra-axial abnormalities are shown. Lungs and soft tissues are unremarkable. CTA Neck: A 3 vessel aortic arch is shown. There is no significant atherosclerotic plaque in the aortic arch or the origins of the innominate, left common carotid, and left subclavian arteries. The common carotid, external carotid, cervical segments of the internal carotid arteries, and the cervical segments of the vertebral arteries are patent without hemodynamically significant stenosis. The left vertebral artery is dominant. CTA Head: The anterior and posterior cerebral circulations are patent. No hemodynamically significant stenosis, aneurysm, dissection, or arteriovenous malformation is shown. IMPRESSION: 1. No acute intracranial hemorrhage, evidence of acute territorial infarction, or other acute intracranial disease process. 2. No occlusion, hemodynamically significant stenosis, or dissection in the major cervical arteries. 3. No occlusion, hemodynamically significant stenosis, aneurysm, dissection, or arteriovenous malformation in the major intracranial arteries. Assessment of stenosis of the internal carotid arteries is based on NASCET criteria. ACT 112: Negative or not required by law. Electronically signed by: Jhonatan Walton M.D. 06/20/2023 1:39 PM Head CTA 06/20/23 12:28 CT angio head w con, CT head/brain wo con CLINICAL HISTORY: neuro deficit, acute stroke suspected TECHNIQUE: Contiguous axial CT images of the head were acquired from the base of the skull to the vertex without intravenous contrast administration. CT angiography of the head and neck was performed following intravenous administration of iodinated contrast. Coronal and sagittal MIPS were obtained from the axial data set and were submitted for review. Automated dose lowering techniques and/or adjustment according to patient size were utilized for this examination. All measurements were calculated based on NASCET criteria. CT DOSE: Comparison: None available at the time of this dictation. FINDINGS: CT head: There is no acute intracranial hemorrhage or evidence of acute territorial infarction. No shift of the midline structures, mass effect, or extra-axial abnormalities are shown. Lungs and soft tissues are unremarkable. CTA Neck: A 3 vessel aortic arch is shown. There is no significant atherosclerotic plaque in the aortic arch or the origins of the innominate, left common carotid, and left subclavian arteries. The common carotid, external carotid, cervical segments of the internal carotid arteries, and the cervical segments of the vertebral arteries are patent without hemodynamically significant stenosis. The left vertebral artery is dominant. CTA Head: The anterior and posterior cerebral circulations are patent. No hemodynamically significant stenosis, aneurysm, dissection, or arteriovenous malformation is shown. IMPRESSION: 1. No acute intracranial hemorrhage, evidence of acute territorial infarction, or other acute intracranial disease process. 2. No occlusion, hemodynamically significant stenosis, or dissection in the major cervical arteries. 3. No occlusion, hemodynamically significant stenosis, aneurysm, dissection, or arteriovenous malformation in the major intracranial arteries. Assessment of stenosis of the internal carotid arteries is based on NASCET criteria. ACT 112: Negative or not required by law. Electronically signed by: Jhonatan Walton M.D. 06/20/2023 1:39 PM Neck CTA 06/20/23 12:28 CT angio neck with con CLINICAL HISTORY: neuro deficit, acute stroke suspected TECHNIQUE: Contiguous axial CT images of the head were acquired from the base of the skull to the vertex without intravenous contrast administration. CT angiography of the head and neck was performed following intravenous administration of iodinated contrast. Coronal and sagittal MIPS were obtained from the axial data set and were submitted for review. Automated dose lowering techniques and/or adjustment according to patient size were utilized for this examination. All measurements were calculated based on NASCET criteria. CT DOSE: 1206.65 mGy.cm Comparison: None available at the time of this dictation. FINDINGS: CT head: There is no acute intracranial hemorrhage or evidence of acute territorial infarction. No shift of the midline structures, mass effect, or extra-axial abnormalities are shown. Lungs and soft tissues are unremarkable. CTA Neck: A 3 vessel aortic arch is shown. There is no significant atherosclerotic plaque in the aortic arch or the origins of the innominate, left common carotid, and left subclavian arteries. The common carotid, external carotid, cervical segments of the internal carotid arteries, and the cervical segments of the vertebral arteries are patent without hemodynamically significant stenosis. The left vertebral artery is dominant. CTA Head: The anterior and posterior cerebral circulations are patent. No hemodynamically significant stenosis, aneurysm, dissection, or arteriovenous malformation is shown. IMPRESSION: 1. No acute intracranial hemorrhage, evidence of acute territorial infarction, or other acute intracranial disease process. 2. No occlusion, hemodynamically significant stenosis, or dissection in the major cervical arteries. 3. No occlusion, hemodynamically significant stenosis, aneurysm, dissection, or arteriovenous malformation in the major intracranial arteries. Assessment of stenosis of the internal carotid arteries is based on NASCET criteria. ACT 112: Negative or not required by law. Electronically signed by: Jhonatan Walton M.D. 06/20/2023 1:30 PM Brain MRI 06/20/23 14:30 MR brain wo con CLINICAL HISTORY: stroke workup TECHNIQUE: Multiplanar and multisequence MR images of the brain were obtained without intravenous contrast. Comparison: Comparison is made to MRI brain 10/25/2015 and CTA head and neck 06/20/2023 FINDINGS: No abnormal restricted diffusion is identified. Foci of T2 and FLAIR hyperintensity are noted in the paraventricular areas consistent with chronic small vessel ischemic disease. Ex vacuo ventriculomegaly and sulcal enlargement is noted compatible with diffuse volume loss. No mass is seen. There is no mass effect or midline shift. There is no evidence of acute intraparenchymal hemorrhage. No extra axial fluid collections are seen. The corpus callosum, pituitary gland, and cerebellar tonsils appear grossly unremarkable. Flow voids of the major intracranial arterial vessels are identified. The imaged portions of the paranasal sinuses, mastoid air cells, and orbits are unremarkable. IMPRESSION: No acute abnormality and in particular no evidence of acute infarct. ACT 112: Negative or not required by law. Electronically signed by: Jhonatan Walton M.D. 06/20/2023 5:16 PM Chest X-Ray 06/20/23 14:50 XR chest 1V portable CLINICAL HISTORY: weakness TECHNIQUE: Single frontal radiograph of the chest was obtained. Comparison: Comparison is made to chest radiograph 10/25/2015 FINDINGS: No lines and tubes are seen. The cardiomediastinal silhouette is normal. The lungs are clear. No evidence of pleural effusion or pneumothorax. IMPRESSION: No acute chest disease. ACT 112: Negative or not required by law. Electronically signed by: Jhonatan Walton M.D. 06/20/2023 4:02 PM 06/21/23 05:57 06/21/23 05:57 06/21/23 06/20/23 Range/Units 05:57 12:34 WBC 6.75 (4.8-10.8) K/ul RBC 4.81 (4.70-6.10) M/uL Hgb 14.7 (14.0-18.0) g/dl Hct 43.7 (42.0-52.0) % MCV 90.9 (80.0-100.0) fL MCH 30.6 (25.0-34.0) pg MCHC 33.6 (32.0-36.0) g/dL RDW Std Deviation 46.8 H (36.4-46.3) fL RDW Coeff of Bhargav 13.9 (11.5-14.5) % Plt Count 173 (130-400) K/uL MPV 10.0 (9.4-12.4) fL Immature Gran % (Auto) 0.4 % Neut % (Auto) 67.1 % Lymph % (Auto) 19.1 % Haskell % (Auto) 10.8 % Eos % (Auto) 1.9 % Baso % (Auto) 0.7 % Neut # (Auto) 4.52 (1.40-6.50) K/uL Lymph # (Auto) 1.29 (1.20-3.40) K/uL Haskell # (Auto) 0.73 H (0.11-0.59) K/uL Eos # (Auto) 0.13 (0.00-0.50) K/uL Baso # (Auto) 0.05 (0.00-0.20) K/uL Immature Gran # (Auto) 0.03 (0.01-0.20) K/uL PT 11.4 (9.0-12.0) Seconds INR 1.0 (0.9-1.1) Sodium 138 (136-145) mmol/L Potassium 3.9 (3.5-5.1) mmol/L Chloride 108 H (98-107) mmol/L Carbon Dioxide 25 (21-32) mmol/L Anion Gap 5 (3-11) BUN 20 (6-23) mg/dl Creatinine 1.57 H (0.6-1.4) mg/dl Est Cr Clr Drug Dosing 55.5 ml/min Est GFR ( Amer) 51.4 ml/min Est GFR (Non-Af Amer) 44.3 ml/min BUN/Creatinine Ratio 12.7 (10-20) Glucose 93 (70-99(Fasting)) mg/dl Estimat Average Glucose 108 mg/dl Hemoglobin A1c 5.4 (4.5-5.6) % Calcium 8.2 L (8.6-10.3) mg/dl Magnesium 2.0 (1.7-2.4) mg/dl Total Bilirubin 0.5 (0.2-1.0) mg/dl AST 14 (13-39) U/L ALT 17 (7-52) U/L Alkaline Phosphatase 60 (34-104) U/L Total Protein 6.7 (6.0-8.3) gm/dl Albumin 3.8 (3.4-5.0) gm/dl Globulin 2.9 (2.5-4.0) gm/dl Albumin/Globulin Ratio 1.3 (0.9-2) Triglycerides 136 (0-150) mg/dl Cholesterol 186 (0-200) mg/dl LDL Cholesterol, Calc 123 mg/dl VLDL Cholesterol, Calc 27 (0-30) mg/dl HDL Cholesterol 36 mg/dl Cholesterol/HDL Ratio 5.2 H (0-5) Procalcitonin 0.05 (0-0.5) ng/ml Hospital Course (1) Stroke-like symptoms: Very brief episode of left sided extremity weakness followed by headache and feeling of brain fogginess, resolved -consulted neurologist, discussed with Dr. Dee who felt this could have been a complex migraine versus TIA -TIA evaluated with studies above: CTA head/neck, brain MRI unremarkable except for small vessel disease. TTE also unremarkable - normal LV function, no rwma's, mild concentric LVH, no significant valvular disease, murmur likely caused by mild MR. No arrhythmias on tele. A1c was normal. Lipid panel notable for LDL 120's above goal, he has not been taking his atorvastatin consistently - recommended he take it every day and have lipid panel rechecked in primary care -risk factor reduction measures: added ASA 81 mg - had significant problems with hematuria in past but not recently, take his atorvastatin 80 mg consistently, continue metoprolol and lisinopril follow up with PCP, goal BP normotensive Possible UTI He had abnormal UA and gram negative rods growing from urine culture by following morning - no dysuria/frequency/urgency. UTI does not explain focal weakness well but could 'brain fog' Started oral cephalexin - he has follow up with his Urologist in two days, please follow up urine culture and sensitivity at that time. (2) Hypertension: (3) High cholesterol: Total Time Total Time Spent Total Time Spent (In Minutes): 40 minutes coordinating care for discharge today Discharge Plan Discharge Items Patient Disposition: Home - Self-Care Reason For Visit: TIA SYMPTOMS Discharge Diagnosis: left sided weakness - possibly migraine or TIA. Urinary tract infection Activity: Resume your previous activity Non-emergency contact: Primary Care Provider and Urologist Call non-emergency contact if: you have any medication questions and your symptoms worsen Follow-up/Referrals: PCP,NO [Primary Care Provider] - (Please call your Primary Care Provider to set up a follow up appt. 7-10 days from your discharge date. ) Diet: Heart Healthy Addtl Attending Provider Instructions: You had a brief episode of left sided weakness followed by headache -the neurologist thought this could be a type of migraine, but it could also have been TIA and you have risk factors for stroke/TIA -make an appointment to follow up with your primary care doctor as soon as possible Try to take aspirin 81 mg daily for stroke prevention. If you develop visible blood in your urine, stop the aspirin and consult with your urologist Take your lipitor / atorvastatin every day. Have your primary care doctor check your blood lipid panel in about a month once you've been taking the lipitor consistently. If your cholesterol is still too high, your doctor might need to change your medications. Also follow a heart healthy diet. -you may have urinary tract infection -follow up with Dr. Madden as scheduled on Wednesday - he can check the urine culture results and make sure you are on the right antibiotic Pending Studies at Discharge: Yes Studies:: Urine culture Stand-Alone Forms: My [facility] DataProm, Smoking Cessation, Medications to Prevent Stroke Medications and DC Order Prescriptions: New aspirin 81 mg Tablet,Delayed Release (Dr/Ec) 81 mg PO QAM Qty: 0 0RF cephalexin 500 mg capsule 500 mg PO Q12H 7 Days Qty: 14 0RF Continued atorvastatin 80 mg tablet 80 mg PO HS magnesium 250 mg Tablet 250 mg PO DAILY PRN (Reason: Leg Spasm) metoprolol succinate 25 mg tablet extended release 24 hr 12.5 mg PO HS lisinopril 20 mg tablet 20 mg PO DAILY cyanocobalamin (vitamin B-12) 1,000 mcg capsule 1,000 mcg PO DAILY Qty: 90 1RF Rx Instructions: take for 6 months. Purchase [id number]. Discharge Orders: Discharge Order (Routine); Ordered 06/21/23 Ordered By: Zuleika Kemp/Other Patient Handouts: TIA Dc, ED Headache, Migraine, Classic Admission Data Admit Date/Time: 06/20/23 14:07 Attending Provider: Zuleika Miguel Admit Provider: Tab Shepard Primary Care Provider: PCP,NO Other Providers: Tab Shepard; Bertin Delgado Other Interventions: Discharge Summary Assessment (RN) Last Done: 06/21/23 12:58 Coding Level of Care Code 18109 INP/OBS DISCH >30 MIN Diagnoses Stroke-like symptoms R29.90 Hypertension I10 High cholesterol E78.00
--- OUTSIDE RECORDS SUMMARY | 2023-06-25 13:28 | External Medical Summary | Continuity of Care Document ---
Author Name Unknown Organization [facility] [address] [facility] Address [address] [place], [place] [id number] Care Team Providers Care Company Dancer Name Role Phone Gillian Puckett Primary Care Physician [phone] Encounter [facility] [id number] Date(s): 02/24/23 - 02/24/23 [facility] [address], [address] [place] [address] [phone] Encounter Diagnosis Mitral valve prolapse(Discharge Diagnosis) - 02/24/23 HTN (hypertension)(Discharge Diagnosis) - 02/24/23 CKD (chronic kidney disease), stage III(Discharge Diagnosis) - 02/24/23 HLD (hyperlipidemia)(Discharge Diagnosis) - 02/24/23 Discharge Disposition: Home or Self Care Attending Physician: DO Meyer Jason D Referring Physician: CANDACE Puckett Jill Nicole Allergies, Adverse Reactions, Alerts No Known Medication Allergies Assessment and Plan Extracted from: Title:Cardiology Office Visit Note Author:DO Meyer Jason D Date:02/24/23 1.Mitral valve prolapse 2.HTN (hypertension) 3.HLD (hyperlipidemia) 4.CKD (chronic kidney disease), stage III I reviewed his most recent echocardiogram. He has moderate mitral regurgitation his LV function remains greater than normal. We discussed good blood pressure control and trying to avoid him needing an operation if at all possible. We did discuss signs and symptoms if he were to have worsening mitral regurgitation that was either acute or subacute including increasing shortness of breath and fatigue with activity. His blood pressures seem to be relatively well controlled and he had some mild lightheadedness and therefore I did not increase the dosing. We did discuss the fact that he did not have any heart failure or cardiac issues with his multiple procedures for his prostate is reassuring. I will have him see Zuleika our nurse practitioner in 6 months time. I will see him in a year with a repeat echocardiogram. Immunizations Given and Recorded Vaccine Date Status Refusal Reason influenza virus vaccine, inactivated 05/14/22 Give n influenza virus vaccine, inactivated 04/11/20 Chava rded influenza virus vaccine, inactivated 04/25/19 Give n influenza virus vaccine, inactivated 05/27/18 Give n influenza virus vaccine, inactivated 06/10/16 Give n pneumococcal 23-valent vaccine 05/14/22 Given pneumococcal 23-valent vaccine 03/16/17 Given zoster vaccine, inactivated 06/18/20 Recorded pneumococcal 13-valent vaccine 07/05/19 Recorded tetanus toxoids-diphtheria, Td (Adult) 10/21/16 Gi tiffanie zoster vaccine live 06/10/16 Given Medications atorvastatin 80 mg oral tablet Start: 09/18/22 10:38:00 EST, 1 tab, PO, Daily, Disp# 90 tab, Refills: 3, [id number] Start Date: 09/18/22 Status: Ordered lisinopril 20 mg oral tablet Start: 09/21/22 16:01:00 EST, 1 tab, PO, Daily, Disp# 90 tab, Refills: 3, [id number] Start Date: 09/21/22 Status: Ordered magnesium oxide Start: 02/24/23 14:44:00 EDT Start Date: 02/24/23 Status: Ordered Metoprolol Succinate ER 25 mg oral tablet, extended release Start: 10/29/22 9:38:00 EDT, See Instructions, Disp# 90 tab, Refills: 3, TAKE 1 TABLET BY MOUTH EVERY DAY, [id number] Start Date: 10/29/22 Status: Ordered Viagra 25 mg oral tablet Start: 01/16/20 10:41:00 EDT, 2 tab, PO, Daily, Disp# 16 tab, Refills: 3, PRN: as needed for erectile dysfunction, Pharmacy: [id number] Start Date: 01/16/20 Stop Date: 05/15/20 Status: Ordered Vitamin B12 Start: 02/24/23 14:44:00 EDT Start Date: 02/24/23 Status: Ordered Problem List Condition Confirmation Course Effective Dates Status Health St atus Informant CKD (chronic kidney disease), stage III Confirmed Active HLD (hyperlipidemia) Confirmed Active HTN (hypertension) Confirmed Active Meralgia paresthetica Confirmed Active Mitral valve prolapse Confirmed Active Keratosis, seborrheic Confirmed Active Weight disorder Confirmed Active Diagnosis Diagnosis Type Effective Dates Health Status Cl inical Service Informant CKD (chronic kidney disease), stage III Discharge Diagnosis 02/24/23 Mitral valve prolapse Discharge Diagnosis 02/24/23 HLD (hyperlipidemia) Discharge Diagnosis 02/24/23 HTN (hypertension) Discharge Diagnosis 02/24/23 Procedures Procedure Date Related Diagnosis Body Site Status Bladder irrigation 11/13/22 Comple stuart Prostatectomy 1 10/26/[address] of abdomen and pelvis wit hout contrast 2 08/25/22 Completed Shoulder X-ray Right 3 12/10/20 Co mpleted Colonoscopy 4, 5, 6 02/27/20 Compl eted Leg 7 Completed [place] tooth Completed . Marked prostatomegaly with evidence of chronic bladder outlet obstruction. 2. A wallace catheter is in place and the bladder is largely decompressed. The bladder wall is irregularly thickened and there is significant surrounding inflammation. Correlate with clinical findings and urinalysis for evidence of cystitis. 3. Hyperdense material within the bladder lumen likely represents blood clots. Outpatient follow upwith urology is recommended. The patient may benefit from cystoscopy for further assessment of the underlying bladder. 4. There is mild bilateral hydroureteronephrosis, possibly due to bladder outlet obstruction. 5. Colonic diverticulosis without CT evidence of acute diverticulitis. 6. Additional findings above. 3Impression: No fracture or dislocation within the right shoulder Supraspinatus calcific tendinitis Mild glenohumeral joint osteroarthritis. 4COLO to cecum, 3 mm HF polyp cold forceps, 4 mmm SF polyp cold snared, 2 mm rectal polyp cold forceps, diverticulosis. 5Hepatic flexure polyp- tubular adenoma. Splenic flexure polyp- tubular adenoma. Rectal polyp- hyperplastic polyp. 6Repeat 5 years 7Left femoral hernia Vital Signs Most recent to oldest [Reference Range]: 1 Patient Weight 104 kg (02/24/23 2:55 PM) Heart Rate 59 bpm (02/24/23 2:55 PM) Blood Pressure 130/82mmHg (02/24/23 2:55 PM) BP Location # 1 Right Arm (02/24/23 2:55 PM) Social History Social History Type Response Smoking Status Never smoked cigaret dylon Sex Male Cardiology Outpatient Note * DO Meyer Jason D: PERFORM Event Display: Cardiology Outpt Note Authored Date: [id number] Primary Care Provider CANDACE Puckett Jill Nicole Referring Provider CANDACE Puckett Jill Nicole Chief Complaint 8 mon f/u echo in december MVP/MR unchaned PVCs htn History of Present Illness Bubba returns today and is feeling well. He had a very shaky start to the new year requiring laser therapy for his prostate and an indwelling Wallace catheter and then significant hemorrhage and clotting into his bladder. He is finally recovered from that. He denies any chest pain or chest pressure. With his surgeries he had no heart failure or shortness of breath or anginal symptoms. He is unaware of any palpitations or fluttering or feeling his heart racing. He is tolerating his current medical regimen. He notes he is not walking as much as he was before the heat and humidity. He can climb a flight of stairs without having to stop. He can walk to on the flat withoutany shortness of breath. Review of Systems PAST MEDICAL HISTORY: 1. Frequent PVCs representing 4% of all beats with a history of ventricular couplets, triplets and a single 4-beat run of nonsustained VT. 2. 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 LVEF 65%; normal PA Pressures 3. Hypertension. 4. Hyperlipidemia. 5. CVA in 2015. 6. Chronic kidney disease with baseline creatinine between 1.5 and 1.6. 7. Degenerative joint disease in his knees. 8. BPH -- s/p laser Tx 2022 9. History of elevated PSA Physical Exam Vitals & Measurements HR:59(Monitored) BP:130/82 SpO2:97% WT:104kg WT:104.000kg(Dosing) EXAM: He is awake, alert, oriented x3, no acute distress. Well-appearing male who ooks his stated age. HEENT: 2+ carotid upstrokes, no evidence of carotid bruits. Lungs: With breathing, he hadsignificant upper airway sounds. As best I could tell, his lungs were probably clear. There wasno evidence of effusions in the bases. Heart: sinus rhythm with rare ectopy. He has a holosystolic murmur 2/6, loudest at the apex. Abdomen: Soft, nontender, distended, positive bowel sounds.Extremities: No clubbing, cyanosis or edema. Psychiatric: Appears appropriate. Assessment/Plan 1.Mitral valve prolapse 2.HTN (hypertension) 3.HLD (hyperlipidemia) 4.CKD (chronic kidney disease), stage III I reviewed his most recent echocardiogram. He has moderate mitral regurgitation his LV function remains greater than normal. We discussed good blood pressure control and trying to avoid him needing an operation if at all possible. We did discuss signs and symptoms if he were to have worseningmitral regurgitation that was either acute or subacute including increasing shortness of breath andfatigue with activity. His blood pressures seem to be relatively well controlled and he had some mild lightheadedness and therefore I did not increase the dosing. We did discuss the fact that he did not have any heart failure or cardiac issues with his multiple procedures for his prostate is reassuring. I will have him see Zuleika our nurse practitioner in 6 months time. I will see him in a year with a repeat echocardiogram. Problem List/Past Medical History Ongoing CKD (chronic kidney disease), stage III HLD (hyperlipidemia) HTN (hypertension) Keratosis, seborrheic Meralgia paresthetica Mitral valve prolapse Weight disorder Historical BPH associated with nocturia Effusion of left knee Left knee pain Left leg pain Preop examination S/P orthopedic surgery, follow-up exam Skin lesion Tarsal tunnel syndrome of left side Tear of medial meniscus of left knee Procedure/Surgical History Bladder irrigation (11/13/2022)Prostatectomy (10/26/2022)CT of abdomen and pelvis without contrast (08/25/2022)Shoulder X-ray Right (12/10/2020)Colonoscopy (02/27/2020)[place] toothLeg Medications atorvastatin(atorvastatin 80 mg oral tablet), 80 mg= 1 tab, PO, Daily, 3 refills cyanocobalamin(Vitamin B12) lisinopril(lisinopril 20 mg oral tablet), 20 mg= 1 tab, PO, Daily, 3 refills magnesium oxide metoprolol(Metoprolol Succinate ER 25 mg oral tablet, extended release), See Instructions, 3 refills sildenafil(Viagra 25 mg oral tablet), 50 mg= 2 tab, PO, Daily, PRN, 3 refills Allergies No Known Medication Allergies Social History Smoking Status Never smoked cigarettes Alcohol - Denies Alcohol Use Nutrition/Health - Medium Risk Substance Abuse - Denies Substance Abuse Tobacco - Denies Tobacco Use Family History Cancer: Mother and Father. Diabetes mellitus: Father. Hypertension: Father. Prostate carcinoma: Paternal Uncle. Health Status Family Member(s) Electronic Signature on File CC: CANDACE Yates [address] [place] [id number] Electronically Reviewed/Signed by: Cedric Meyer DO Author Signature Dt/Tm:02/24/2023 04:22 PM Engagement Leadrequisition approver [facility] [place] [address] [facility], [address] [place] [address] JDF Patient Care team information Care Team Personnel Name: CANDACE Puckett Jill Nicole Position: Nurse Pract - Family Med Member Role: Primary Care Provider Address: Address: [address] [place] [address], [place] [address] [place] Care Team Related Persons Name: IQRA TRAORE Address: [place] Address: home [address], [place] [id number]
--- OUTSIDE RECORDS SUMMARY | 2023-06-25 13:28 | External Medical Summary | Continuity of Care Document ---
Author Name Unknown Organization [address] [id number] Care Team Providers Care Electric Train Driver Name Role Phone Ca Salas Primary Care Physician [phone] [id number] Date(s): 03/18/23 - 03/18/[address] [address] [phone] Encounter Diagnosis Iron deficiency anemia, unspecified(Final) - Localized swelling, mass and lump, trunk(Final) - Mass of skin of back(Discharge Diagnosis) - 03/20/23 Discharge Disposition: Home or Self Care Attending Physician: MD Maritza, [place] Allergies, Adverse Reactions, Alerts No Known Medication Allergies Assessment and Plan Extracted from: Title:Office Visit Note Author:MD Maritza, [employer] Date:03/20/23 1.Skin cancer screening Refer to dermatology for skin cancer evaluation. 2.Seborrheic keratoses As above. 3.Iron deficiency anemia Continue iron supplement. Check iron profile and cbc. Immunizations Given and Recorded Vaccine Date Status [...] Daily, Disp# 90 tab, Refills: 3, Pharmacy: [facility] #[id number] Start Date: 09/18/22 Status: Ordered ferrous fumarate 324 mg (106 mg elemental iron) oral tablet Start: 03/18/23 10:30:00 EDT, 1 tab, PO, Daily, Disp# 30 tab, Refills: 5, Pharmacy: [facility]/pharmacy #[id number] Start Date: 03/18/23 Stop Date: 09/14/23 Status: Ordered lisinopril 20 mg oral tablet Start: 09/21/22 16:01:00 EST, 1 tab, PO, Daily, Disp# 90 tab, Refills: 3, Pharmacy: [facility]/pharmacy #[id number] Start Date: 09/21/22 Status: Ordered magnesium oxide Start: 02/24/23 14:44:00 EDT Start Date: 02/24/23 Status: Ordered Metoprolol Succinate ER 25 mg oral tablet, extended release Start: 10/29/22 9:38:00 EDT, See Instructions, Disp# 90 tab, Refills: 3, TAKE 1 TABLET BY MOUTH EVERY DAY, Pharmacy: [facility]/pharmacy #[id number] Start Date: 10/29/22 Status: Ordered Viagra 25 mg oral tablet Start: 01/16/20 10:41:00 EDT, 2 tab, PO, Daily, Disp# 16 tab, Refills: 3, PRN: as needed for erectile dysfunction, [id number] Start Date: 01/16/20 Stop Date: 05/15/20 Status: Ordered Vitamin B12 Start: 02/24/23 14:44:00 EDT Start Date: 02/24/23 Status: Ordered Mental Status 03/18/23 Barriers to Learning one year None evide nt Mandatory Health Literacy Documentation Yes Health Literacy Communication Barriers N ever Primary Language Pashto Problem List Condition Confirmation Course Effective Dates Status Health St atus Informant CKD (chronic kidney disease), stage III Confirmed Active HLD (hyperlipidemia) Confirmed Active HTN (hypertension) Confirmed Active Meralgia paresthetica Confirmed Active Mitral valve prolapse Confirmed Active Keratosis, seborrheic Confirmed Active Weight disorder Confirmed Active Diagnosis Diagnosis Type Effective Dates Health Status Cl inical Service Informant Mass of skin of back Discharge Diagnosis 03/20/23 Procedures Procedure Date Related Diagnosis Body Site Status Bladder irrigation 11/13/22 Comple stuart Prostatectomy 1 10/26/[address] of abdomen and pelvis wit hout contrast 2 08/25/22 Completed Shoulder X-ray Right 3 12/10/20 Co mpleted Colonoscopy 4, 5, 6 02/27/20 Compl eted Leg 7 Completed [place] tooth Completed . Marked prostatomegaly with evidence [...] polyp. 6Repeat 5 years 7Left femoral hernia Results Laboratory List Name Date Complete Blood Count w Differential (CBC ,DIFFH) 03/18/23 Iron Profile (IRON PROFILE) 03/18/23 Most recent to oldest [Reference Range]: 1 MPV [9.0-12.2 fL] 9.6 fL (03/18/23 1:13 PM) Immature Gran% 0.2 % (03/18/23 1:13 PM) Neut% 63.0 % (03/18/23 1:13 PM) Lymph% 26.7 % (03/18/23 1:13 PM) [place]% 8.2 % (03/18/23 1:13 PM) Baso% 0.3 % (03/18/23 1:13 PM) Eos% 1.6 % (03/18/23 1:13 PM) Immat Gran, Abs [0-0.4 K/uL] 0.01 K/uL 1 (03/18/23 1:13 PM) Neut, Abs [2.0-7.7 K/uL] 3.62 K/uL (03/18/23 1:13 PM) Lymph, Abs [1.0-3.4 K/uL] 1.53 K/uL (03/18/23 1:13 PM) [place], Abs [0-1.0 K/uL] 0.47 K/uL (03/18/23 1:13 PM) Baso, Abs [0-0.1 K/uL] 0.02 K/uL (03/18/23 1:13 PM) Eos, Abs [0-0.5 K/uL] 0.09 K/uL (03/18/23 1:13 PM) Type of Diff: AUTO *Unknown* (03/18/23: PM) RDW [11.5-14.2 %] 16.0 % *HI* (03/18/23 1:13 PM) Iron [50-158 ug/dL] 71 ug/dL (03/18/23 1:13 PM) Hct [39-48 %] 45.1 % (03/18/23 1:13 PM) Hgb [13.0-17.0 g/dL] 14.7 g/dL (03/18/23 1:13 PM) MCH [28-33 pg] 28.2 pg (03/18/23:13 PM) MCHC [32-36 g/dL] 32.6 g/dL (03/18/23 1:13 PM) MCV [81-96 fL] 86.6 fL (03/18/23:13 PM) Plts [150-350 K/uL] 174 K/uL (03/18/23 1:13 PM) RBC [4.40-5.60 M/uL] 5.21 M/uL (03/18/23 1:13 PM) Fe Sat [14-50 %] 26 % (03/18/23 1:13 PM) Total IBC [250-400 ug/dL] 273 ug/dL (03/18/23 1:13 PM) Transferrin [200-360 mg/dL] 231 mg/dL (03/18/23 1:13 PM) WBC [4.0-10.4 K/uL] 5.74 K/uL (03/18/23 1:13 PM) 1Result Comment: Testing Performed By: Dept of Pathology [facility] [address], [address], [place] [address] Vital Signs Most recent to oldest [Reference Range]: 1 Patient Weight 105.1 kg (03/18/23 9:45 AM) Heart Rate 84 bpm (03/18/23 9:45 AM) Respiratory Rate 16 br/min (03/18/23 9:45 AM) Blood Pressure 124/74mmHg (03/18/23 9:45 AM) Cuff Pulse Pressure 50 mmHg (03/18/23 9:45 AM) Social History Social History Type Response Smoking Status Never smoked cigaret dylon Sex Male .Outpt Proc * MD Salas [place]: PERFORM Event Display: .Outpt Proc Authored Date: [id number] 67 y/o M c/o -hyperpigmented skin lesion on the back x 1, noted few days ago by his friend. Denies pain. No fever. Skin: open , dry, keratotic black pigmented, hard mass approx. <1 cm in diameter. No erythema onthe surrounding tissue. No discharge. Procedure Name excision of small mass Consent verbal consent Indication skin mass Location midback Pre-Procedure Exam Procedural Sedation none Technique Skin prep using alcohol swab.Anesthetic sprayed to affected area. Using picker tender forcep,cystic mass completelyremoved. Wound dress with bacitracin and band aid. Post-Procedure Exam Depth < 1 cm, concave, clean surface, minimal bleeding noted. Complications none Total Time 10 minutes Assessment/Plan 1.Mass of skin of back Superficail small Mass removed. Tissue collected and send to the lab. Advised to apply topical antibiotic 2-3x a day. Return to clinic if he developed pain, if he noticed swelling or redness to the affected area. May take Ibuprofen or Tylenol as needed for pain Most likely open, dry sebaceous cyst. Attestation A total of10 minutes were spenton procedure Electronic Signature on File Electronically Reviewed/Signed by: Ca Salas MD Author Signature Dt/Tm:03/20/2023 03:36 PM Department of Family Medicine VS Primary care Note * MD Salas [place]: PERFORM Event Display: FCM Outpt Note Authored Date: [id number] Chief Complaint has 2 spots on back and would like referral if needed History of Present Illness 67 y/o M c/o -hyperpigmented skin lesion on the back x 1, noted few days ago by his friend. Denies pain. -Multiple brownish skin lesion on the trunk (front and back) for years. - Anemia. Patient reported that he is still taking iron supplement. Denies dizziness, headache, chest pain , sob, abdominal pain , nausea, vomiting , diarrhea, orconstipation. Review of Systems see hpi Physical Exam Vitals & Measurements HR:84(Monitored) RR:16 BP:124/74 SpO2:96% WT:105.100kg(Dosing) WT:105.1kg PHQ2 Data(Data Documented on:03/18/2023 09:45) Emotional health assessment NEGATIVE General: alert and oriented, no acute distress Eye: PERRL, EOMI, normal conjunctiva HENT: normocephalic Neck: supple Resp: Lungs CTA, non-labored respirations, BS equal, symmetrical expansion CV: normal rate and rhythm, no murmur, no gallop MS: normal gait SKIN: Multiple brown pigmented skin lesion on the trunk, keratotic appearance. Psychiatric: appropriate mood and affect, normal judgement, non-suicidal Assessment/Plan 1.Skin cancer screening Refer to dermatology for skin cancer evaluation. 2.Seborrheic keratoses As above. 3.Iron deficiency anemia Continue iron supplement. Check iron profile and cbc. Problem List/Past Medical History Ongoing CKD (chronic [...] pelvis without contrast (08/25/2022)Shoulder X-ray Right (12/10/2020)Colonoscopy (02/27/2020)[place] toothLeg Medications atorvastatin(atorvastatin 80 mg oral tablet), 80 mg= 1 tab, PO, Daily, 3 refills cyanocobalamin(Vitamin B12) ferrous fumarate(ferrous fumarate 324 mg (106 mg elemental iron) oral tablet), 324 mg= 1 tab, PO, Daily, 5 refills lisinopril(lisinopril 20 mg oral tablet), 20 mg= [...] carcinoma: Paternal Uncle. Health Status Family Member(s) Immunizations Vaccine Date Status influenza virus vaccine, inactivated 05/14/2022 Given pneumococcal 23-valent vaccine 05/14/2022 Given zoster vaccine, inactivated 06/18/2020 Recorded influenza virus vaccine, inactivated 04/11/2020 Recorded pneumococcal 13-valent vaccine 07/05/2019 Recorded influenza virus vaccine, inactivated 04/25/2019 Given influenza virus vaccine, inactivated 05/27/2018 Given influenza virus vaccine, inactivated - Not Given Comments : Already received vaccine pneumococcal 23-valent vaccine 03/16/2017 Given tetanus toxoids-diphtheria, Td (Adult) 10/21/2016 Given zoster vaccine live 06/10/2016 Given influenza virus vaccine, inactivated 06/10/2016 Given Recommendations Health Maintenance Pending(in the next year) OverDue Adult Influenza Vaccine due02/13/23and every 1year Due Adult COVID-19 Vaccination due03/20/23Unknown Frequency Shingles Vaccine due03/20/23One-time only Due In Future Medicare Annual Wellness Visit not due until05/14/23and every 1year Body Mass Index not due until03/17/24and every 1year Satisfied(in the past 1 year) Satisfied Adult Influenza Vaccine on05/14/22.Satisfied by REEMA Salas [place] Body Mass Index on12/02/22.Satisfied by ISABELA Maria Cassidy Lipid Screening on05/27/22.Satisfied by Contributor_system, [email or web address] Medicare Annual Wellness Visit on05/14/22.Satisfied by CANDACE Puckett Jill Nicole Electronic Signature on File Electronically Reviewed/Signed by: Ca Salas MD Author Signature Dt/Tm:03/20/2023 03:11 PM Department of Family Medicine VS Patient Care team information Care Team Personnel Name: MD Maritza, [place] Position: Physician - Family Med Member Role: Primary Care Provider Address: Address: [address] [place] [address], [place] [address] [place] Care Team Related Persons Name: IQRA TRAORE Address: [place] Address: home [address], [place] [id number]
--- OUTSIDE RECORDS SUMMARY | 2023-06-25 13:29 | External Medical Summary | Continuity of Care Document ---
Author Name Unknown Organization [facility] [address] Address [address] [place], [place] [id number] Care Team Providers Care Professor Of Surgery Name Role Phone Gillian Puckett Primary Care Physician [phone] [id number] Date(s): 12/29/22 - 12/29/22 [facility] [address] [facility] [address], [facility] 1 [place], [place] [phone] Encounter Diagnosis Chronic kidney disease, stage 3 unspecified(Final) - Hyperlipidemia, unspecified(Final) - Essential (primary) hypertension(Final) - Anemia, unspecified(Final) - Discharge Disposition: Home or Self Care Attending Physician: CANDACE Puckett Jill Nicole Referring Physician: CANDACE Puckett Jill Nicole Allergies, Adverse Reactions, Alerts No Known Medication Allergies Immunizations Given and Recorded Vaccine Date Status [...] Daily, Disp# 90 tab, Refills: 3, Pharmacy: [facility]/pharmacy #[id number] Start Date: 09/18/22 Status: Ordered lisinopril 20 mg oral tablet Start: 09/21/22 16:01:00 EST, 1 tab, PO, Daily, Disp# 90 tab, Refills: 3, Pharmacy: [facility][id number] Start Date: 09/21/22 Status: Ordered Metoprolol Succinate ER 25 mg oral tablet, extended release Start: 10/29/22 9:38:00 EDT, See Instructions, Disp# 90 tab, Refills: 3, TAKE 1 TABLET BY MOUTH EVERY DAY, Pharmacy: [facility] #[id number] Start Date: 10/29/22 Status: Ordered Viagra 25 mg oral tablet Start: 01/16/20 10:41:00 EDT, 2 tab, PO, Daily, Disp# 16 tab, Refills: 3, PRN: as needed for erectile dysfunction, Pharmacy: [facility] #[id number] Start Date: 01/16/20 Stop Date: 05/15/20 Status: Ordered Problem List Condition Confirmation Course Effective Dates Status Health St atus Informant CKD (chronic kidney disease), stage III Confirmed Active HLD (hyperlipidemia) Confirmed Active HTN (hypertension) Confirmed Active Meralgia paresthetica Confirmed Active Mitral valve prolapse Confirmed Active Keratosis, seborrheic Confirmed Active Weight disorder Confirmed Active Procedures Procedure Date Related Diagnosis Body Site Status Bladder irrigation 11/13/22 Comple stuart Prostatectomy 1 10/26/[address] of abdomen and pelvis wit hout contrast 2 08/25/22 Completed Shoulder X-ray Right 3 12/10/20 Co mpleted Colonoscopy 4, 5, 6 02/27/20 Compl eted Leg 7 Completed [place] tooth Completed 1partial 21. Marked prostatomegaly with evidence of chronic bladder [...] Complete Blood Count w Differential (CBC ,DIFFH) 12/29/22 Ferritin (FERRITIN) 12/29/22 Iron Profile (IRON PROFILE) 12/29/22 Most recent to oldest [Reference Range]: 1 MPV [9.0-12.2 fL] 9.4 fL (12/29/22 11:11 AM) Immature Gran% 0.1 % (12/29/22 11:11 AM) Neut% 68.9 % (12/29/22 11:11 AM) Lymph% 19.5 % (12/29/22 11:11 AM) [place]% 9.6 % (12/29/22 11:11 AM) Baso% 0.4 % (12/29/22 11:11 AM) Eos% 1.5 % (12/29/22 11:11 AM) Immat Gran, Abs [0-0.4 K/uL] 0.01 K/uL 1 (12/29/22 11:11 AM) Neut, Abs [2.0-7.7 K/uL] 4.59 K/uL (12/29/22 11:11 AM) Lymph, Abs [1.0-3.4 K/uL] 1.30 K/uL (12/29/22 11:11 AM) [place], Abs [0-1.0 K/uL] 0.64 K/uL (12/29/22 11:11 AM) Baso, Abs [0-0.1 K/uL] 0.03 K/uL (12/29/22 11:11 AM) Eos, Abs [0-0.5 K/uL] 0.10 K/uL (12/29/22 11:11 AM) Type of Diff: AUTO *Unknown* (12/29/22 11:11 AM) RDW [11.5-14.2 %] 14.3 % *HI* (12/29/22 11:11 AM) Iron [50-158 ug/dL] 41 ug/dL *LOW* (12/29/22 11:11 AM) Ferritin [17.9-464.0 ng/mL] 17.6 ng/mL 2 *LOW* (12/29/22 11:11 AM) Hct [39-48 %] 40.0 % (12/29/22 11:11 AM) Hgb [13.0-17.0 g/dL] 12.7 g/dL *LOW* (12/29/22 11:11 AM) MCH [28-33 pg] 28.6 pg (12/29/22 11:11 AM) MCHC [32-36 g/dL] 31.8 g/dL *LOW* (12/29/22 11:11 AM) MCV [81-96 fL] 90.1 fL (12/29/22 11:11 AM) Plts [150-350 K/uL] 186 K/uL (12/29/22 11:11 AM) RBC [4.40-5.60 M/uL] 4.44 M/uL (12/29/22 11:11 AM) Fe Sat [14-50 %] 14 % (12/29/22 11:11 AM) Total IBC [250-400 ug/dL] 287 ug/dL (12/29/22 11:11 AM) Transferrin [200-360 mg/dL] 243 mg/dL (12/29/22 11:11 AM) WBC [4.0-10.4 K/uL] 6.67 K/uL (12/29/22 11:11 AM) 1Result Comment: Testing Performed By: Dept of Pathology [facility] [address], [address] [place] [address] 2Result Comment: Testing Performed By: Dept of Pathology [facility] [address], [address] [place] [address] Social History Social History Type Response Smoking Status Never smoked cigaret dylon Sex Male Patient Care team information Care Team Personnel Name: CANDACE Puckett Jill Nicole Position: Nurse Pract - Family Med Member Role: Primary Care Provider Address: Address: [address] [place] [address], [place] [address] [place] Care Team Related Persons Name: IQRA TRAORE Address: [facility] Address: home [address] [facility], [place] [id number]
--- OUTSIDE RECORDS SUMMARY | 2023-06-25 13:29 | External Medical Summary | Continuity of Care Document ---
Author Name Unknown Organization [facility] [address] Address [address] [place], [place] [id number] Care Team Providers Care Head Kiln Operator Name Role Phone Gillian Puckett Primary Care Physician [phone] [id number] Date(s): 12/29/22 - 12/29/22 [facility] [address] [facility] [address], [facility] 1 [place], [place] [phone] Encounter Diagnosis Chronic kidney disease, stage 3 [...] Daily, Disp# 90 tab, Refills: 3, Pharmacy: [facility]/pharmacy #[id number] Start Date: 09/18/22 Status: Ordered lisinopril 20 mg oral tablet Start: 09/21/22 16:01:00 EST, 1 tab, PO, Daily, Disp# 90 tab, Refills: 3, [facility]acy: [id number] Start Date: 09/21/22 Status: Ordered Metoprolol Succinate ER 25 mg oral tablet, extended release Start: 10/29/22 9:38:00 EDT, See Instructions, Disp# 90 tab, Refills: 3, TAKE 1 TABLET BY MOUTH EVERY DAY, [facility]acy[id number] Start Date: 10/29/22 Status: Ordered Viagra 25 mg oral tablet Start: 01/16/20 10:41:00 EDT, 2 tab, PO, Daily, Disp# 16 tab, Refills: 3, PRN: as needed for erectile dysfunction, [facility]acy: [id number] Start Date: 01/16/20 Stop Date: 05/15/20 [...] 6 02/27/20 Compl eted Leg 7 Completed [place] tooth Completed 1partial 21. Marked prostatomegaly with [...] AM) Lymph% 19.5 % (12/29/22 11:11 AM) [place]% 9.6 % (12/29/22 11:11 AM) Baso% 0.4 % (12/29/22 11:11 AM) Eos% 1.5 % (12/29/22 11:11 AM) Immat Gran, Abs [0-0.4 K/uL] 0.01 K/uL 1 (12/29/22 11:11 AM) Neut, Abs [2.0-7.7 K/uL] 4.59 K/uL (12/29/22 11:11 AM) Lymph, Abs [1.0-3.4 K/uL] 1.30 K/uL (12/29/22 11:11 AM) [place], Abs [0-1.0 K/uL] 0.64 K/uL (12/29/22 11:11 [...] Comment: Testing Performed By: Dept of Pathology [facility] [address], [address] [place] [address] 2Result Comment: Testing Performed By: Dept of Pathology [facility] [address], [address] [place] [address] Social History Social History Type Response Smoking Status Never smoked cigaret dylon Sex Male Patient Care team information Care Team Personnel Name: CANDACE Puckett Jill Nicole Position: Nurse Pract - Family Med Member Role: Primary Care Provider Address: Address: [address] [place] [address], [place] [address] [place] Care Team Related Persons Name: IQRA TRAORE Address: [facility] Address: home [address] [facility], [place] [id number]
--- OUTSIDE RECORDS SUMMARY | 2023-06-25 13:29 | External Medical Summary | Continuity of Care Document ---
Author Name Unknown Organization [facility] [address] Address [address] [place] [phone] Care Team Providers Care Rn Iv Therapy Name Role Phone Gillian Puckett Primary Care Physician [phone] [id number] Date(s): 01/12/23 - 01/12/[address], [address] [place] [address] [phone] Discharge Disposition: Home or Self Care Attending Physician: DO Meyer Jason D Referring Physician: DO Meyer Jason D Allergies, Adverse Reactions, Alerts No Known Medication [...] Daily, Disp# 90 tab, Refills: 3, Pharmacy: [facility]/pharmacy #[id number] Start Date: 09/18/22 Status: Ordered lisinopril 20 mg oral tablet Start: 09/21/22 16:01:00 EST, 1 tab, PO, Daily, Disp# 90 tab, Refills: 3, Pharmacy: [facility]/pharmacy #[id number] Start Date: 09/21/22 Status: Ordered Metoprolol Succinate ER 25 mg oral tablet, extended release Start: 10/29/22 9:38:00 EDT, See Instructions, Disp# 90 tab, Refills: 3, TAKE 1 TABLET BY MOUTH EVERY DAY, Pharmacy: [facility] #[id number] Start Date: 10/29/22 Status: Ordered Viagra 25 mg oral tablet Start: 01/16/20 10:41:00 EDT, 2 tab, PO, Daily, Disp# 16 tab, Refills: 3, PRN: as needed for erectile dysfunction, Pharmacy: [facility] #[id number] Start Date: 01/16/20 Stop Date: 05/15/20 [...] 6 02/27/20 Compl eted Leg 7 Completed [place] tooth Completed 1part. Marked prostatomegaly with evidence of chronic bladder [...] 6Repeat 5 years 7Left femoral hernia Results Radiology Reports * Exam Date Time Procedure Performing Provider Status 01/12/23 12:11 PM Echo TransTHORacic TTE Complete Jerman Hairey; Final Notes: (Echo TransTHORacic TTE Complete) Reason For Exam: mvp and mr Echo TransTHORacic TTE Complete Report Signatures Finalized by Dr. Cedric Meyer MD on 01/12/2023 05:25 PM [place] Act 112: Yes - Discussed with patient Summary 1. Normal left ventricular size and systolic function with no regional wall motion abnormalities. 2. Ejection fraction as calculated by Biplane Simpsons method is 65%. 3. Mild concentric left ventricular hypertrophy. 4. Grade I diastolic dysfunction of the left ventricle (impaired relaxation pattern) with indeterminate left atrial pressure. 5. Normal right ventricular size and function. 6. Mildly dilated left atrium. 7. 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 8. Moderate, eccentric mitral regurgitation. 9. Mild tricuspid regurgitation. 10. Normal estimated pulmonary artery pressures, estimated PASP is 30 mmHg. 11. Estimated pulmonary arterial mean pressure 23 mmHg. 12. Compared to previous study from 07/02/2021 , there is no significant change. Patient Info Name: BUBBA JUÁREZ Age: 67 years : 1955 Gender: Male Ht: 183 cm Wt: 113 kg BSA: 2.44 m2 HR: 56 bpm BP: 130 / 84 mmHg Heart Rhythm: Frequent PVCs, Sinus Bradycardia Technical Quality: Good Exam Date: 01/12/2023 10:57 AM Exam Location: [facility] Patient Status: Outpatient Staff Ordering Physician: Cedric Meyer Ice Hockey Coach: Karla Sánchez RDCS, RVT Attending Physician: Cedric Meyer ([email or web address]) Study Info CPT 62825 - Indications I493 - Ventricular premature depolarization I10 - Hypertension I34.1 - Mitral valve prolapse Procedure(s) * A complete two-dimensional, color flow and Doppler transthoracic echocardiogram was performed. Exam Type: Cardiac Basic Left Ventricle Normal left ventricular size and systolic function with no regional wall motion abnormalities. Ejection fraction as calculated by Biplane Simpsons method is 65%. Mild concentric left ventricular hypertrophy. Grade I diastolic dysfunction of the left ventricle (impaired relaxation pattern) with indeterminate left atrial pressure. Right Ventricle Normal right ventricular size and function. TAPSE is normal, 2.6 cm. Left Atrium Mildly dilated left atrium. Right Atrium Normal right atrial size. Atrial Septum Appears intact. Aortic Valve Sclerotic, tricuspid aortic valve without stenosis. Trivial aortic insufficiency. Pulmonic Valve Structurally normal pulmonic valve with mild insufficiency. Estimated pulmonary arterial mean pressure 23 mmHg. 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 Moderate, eccentric mitral regurgitation. Tricuspid Valve Mild tricuspid regurgitation. Normal estimated pulmonary artery pressures, estimated PASP is 30 mmHg. Pericardium/Pleural No pericardial effusion. Inferior Vena Cava Normal IVC size and inspiratory collapse. Aorta Normal aortic root and ascending aorta for BSA. The aortic arch measures 3.6 cm. Left Ventricular Outflow Tract Name Value Normal LVOT 2D LVOT Diameter 1.9 cm LVOT Doppler LVOT Peak Velocity 0.82 m/s LVOT Peak Gradient 3 mmHg LVOT Mean Gradient 1 mmHg LVOT VTI 20.03 cm LVOT Stroke Volume 57.63 ml LVOT Stroke Volume Index 0.02 l/m2 LVOT Cardiac Output 3.23 l/min LVOT Cardiac Index 1.32 L/min/m2 Pulmonic Valve Name Value Normal PV 2D RVOT Diameter (2D) 2.8 cm 1.7-2.7 RVOT Doppler RVOT Peak Velocity 0.61 m/s RVOT Peak Gradient 1 mmHg PV Doppler PV Peak Velocity 1.14 m/s PV Peak Gradient 5 mmHg PV Regurgitation Doppler NM Peak Velocity 2.21 m/s Mitral Valve Name Value Normal MV Doppler MV PHT 84 ms MV Diastolic Function MV E Peak Velocity 0.60 m/s <=0.50 MV A Peak Velocity 0.77 m/s MV E/A 0.78 <=0.80 MV Decel Time 290 ms MV Annular TDI MV Septal s' Velocity 9.55 cm/s MV Septal e' Velocity 6.13 cm/s >=7.00 MV E/e' (Septal) 9.8 <=8.0 MV Lateral s' Velocity 11.92 cm/s MV Lateral e' Velocity 7.71 cm/s >=10.00 MV E/e' (Lateral) 7.81 <=8.00 MV e' Average 6.92 MV E/e' (Average) 8.82 <=14.00 Tricuspid Valve Name Value Normal TV Regurgitation Doppler TR Peak Velocity 2.59 m/s <=2.80 TR Peak Gradient 22 mmHg Estimated PAP/RSVP RA Pressure 3 mmHg <=5 PA Systolic Pressure 30 mmHg <40 PA Mean Pressure (NM Velocity) 23 mmHg TV Diastolic Function TV E Peak Velocity 0.27 m/s TV A Peak Velocity 0.29 m/s TV E/A 0.95 0.80-2.00 TV Decel Time 396 ms >=120 TV Annular TDI TV Lateral Angelica s' Velocity 12.5 cm/s 9.5-18.7 TV Lateral Angelica e' Velocity 10.1 cm/s <7.8 TV E/e' 2.68 2.00-6.00 Aorta Name Value Normal Ascending Aorta Sinus of Valsalva Diameter 3.8 cm 3.1-3.7 Sinus of Valsalva Index 1.56 cm/m2 1.50-1.90 Prox Asc Ao Diameter 3.5 cm 2.6-3.4 Prox Asc Ao Diameter Index 1.43 cm/m2 1.30-1.70 Thoracic Aorta Ao Arch Diameter 3.6 cm Desc Ao Peak Velocity 0.70 m/s Desc Ao Peak Gradient 2 mmHg Venous Name Value Normal IVC/SVC IVC Diameter (Insp 2D) 0.3 cm IVC Diameter (Exp 2D) 1.4 cm <=2.1 IVC Diameter Percent Change (2D) 75 % >=50 Aortic Valve Name Value Normal AV Doppler AV Peak Velocity 1.12 m/s <2.00 AV Peak Gradient 5 mmHg AV Area (Cont Eq Oswald) 2.1 cm2 AV Area Index (Cont Eq Oswald) 0.87 cm2/m2 AV V1/V2 Ratio 0.73 AV Regurgitation 2D LVOT Area 2.9 cm2 Ventricles Name Value Normal LV Dimensions 2D/MM IVS Diastolic Thickness (2D) 1.1 cm 0.6-1.0 LVID Diastole (2D) 5.6 cm 3.6-5.6 LVIW Diastolic Thickness (2D) 1.1 cm 0.6-1.0 LVID Systole (2D) 4.4 cm 2.5-4.0 LVOT Diameter 1.9 cm LV Fractional Shortening/Ejection Fraction 2D/MM LV Diastolic Volume (4C MOD) 93 ml LV Diastolic Volume (2C MOD) 104 ml LV Diastolic Volume (BP MOD) 98 ml 62-150 LV Diastolic Volume Index (BP MOD) 40.17 ml/m2 34.00-74.00 LV Systolic Volume (BP MOD) 36 ml 21-61 LV Systolic Volume Index (BP MOD) 14.59 ml/m2 11.00-31.00 LV EF (BP MOD) 64 % 57-68 LV Stroke Volume (4C MOD) 61.82 ml RV Dimensions 2D/MM RV Basal Diastolic Dimension 4.0 cm 2.5-4.1 TAPSE 2.6 cm >=1.7 Atria Name Value Normal LA Dimensions LA Area (4C) 24.6 cm2 LA Length (4C) 6.5 cm LA Area (2C) 25.5 cm2 LA Length (2C) 6.1 cm LA Volume (4C A-L) 78.79 ml LA Volume (2C A-L) 90.92 ml LA Volume (BP A-L) 88 ml 18-58 LA Volume Index (BP A-L) 35.94 ml/m2 <=34.00 RA Dimensions RA Area (4C) 17.8 cm2 <=18.0 Final Signed by:DO Meyer Jason D Signed (Electronic Signature):01/12/2023 10:57 Social History Social History Type Response Smoking Status Never smoked cigaret dylon Sex Male US Heart Transthoracic * DO Meyer Jason D: VERIFY, PERFORM, VERIFY Event Display: Report Authored Date: [id number] Report Signatures Finalized by Dr. Cedric Meyer MD on 01/12/2023 05:25 PM [place] Act 112: Yes - Discussed with patient Summary 1. Normal left ventricular size and systolic function with no regional wall motion abnormalities. 2. Ejection fraction as calculated by Biplane Simpsons method is 65%. 3. Mild concentric left ventricular hypertrophy. 4. Grade I diastolic dysfunction of the left ventricle (impaired relaxation pattern) with indeterminate left atrial pressure. 5. Normal right ventricular size and function. 6. Mildly dilated left atrium. 7. 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 8. Moderate, eccentric mitral regurgitation. 9. Mild tricuspid regurgitation. 10. Normal estimated pulmonary artery pressures, estimated PASP is 30 mmHg. 11. Estimated pulmonary arterial mean pressure 23 mmHg. 12. Compared to previous study from 07/02/2021 , there is no significant change. Patient Info Name: BUBBA JUÁREZ Age: 67 years : 1955 Gender: Male Ht: 183 cm Wt: 113 kg BSA: 2.44 m2 HR: 56 bpm BP: 130 / 84 mmHg Heart Rhythm: Frequent PVCs, Sinus Bradycardia Technical Quality: Good Exam Date: 01/12/2023 10:57 AM Exam Location: [facility] Patient Status: Outpatient Staff Ordering Physician: Cedric Meyer Ice Hockey Coach: Karla Sánchez RDCS RVT Attending Physician: Cedric Meyer (carmen) Study Info CPT 21925 - Indications I493 - Ventricular premature depolarization I10 - Hypertension I34.1 - Mitral valve prolapse Procedure(s) * A complete two-dimensional, color flow and Doppler transthoracic echocardiogram was performed. Exam Type: Cardiac Basic Left Ventricle Normal left ventricular size and systolic function with no regional wall motion abnormalities. Ejection fraction as calculated by Biplane Simpsons method is 65%. Mild concentric left ventricular hypertrophy. Grade I diastolic dysfunction of the left ventricle (impaired relaxation pattern) with indeterminate left atrial pressure. Right Ventricle Normal right ventricular size and function. TAPSE is normal, 2.6 cm. Left Atrium Mildly dilated left atrium. Right Atrium Normal right atrial size. Atrial Septum Appears intact. Aortic Valve Sclerotic, tricuspid aortic valve without stenosis. Trivial aortic insufficiency. Pulmonic Valve Structurally normal pulmonic valve with mild insufficiency. Estimated pulmonary arterial mean pressure 23 mmHg. 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 Moderate, eccentric mitral regurgitation. Tricuspid Valve Mild tricuspid regurgitation. Normal estimated pulmonary artery pressures, estimated PASP is 30 mmHg. Pericardium/Pleural No pericardial effusion. Inferior Vena Cava Normal IVC size and inspiratory collapse. Aorta Normal aortic root and ascending aorta for BSA. The aortic arch measures 3.6 cm. Left Ventricular Outflow Tract Name Value Normal LVOT 2D LVOT Diameter 1.9 cm LVOT Doppler LVOT Peak Velocity 0.82 m/s LVOT Peak Gradient 3 mmHg LVOT Mean Gradient 1 mmHg LVOT VTI 20.03 cm LVOT Stroke Volume 57.63 ml LVOT Stroke Volume Index 0.02 l/m2 LVOT Cardiac Output 3.23 l/min LVOT Cardiac Index 1.32 L/min/m2 Pulmonic Valve Name Value Normal PV 2D RVOT Diameter (2D) 2.8 cm 1.7-2.7 RVOT Doppler RVOT Peak Velocity 0.61 m/s RVOT Peak Gradient 1 mmHg PV Doppler PV Peak Velocity 1.14 m/s PV Peak Gradient 5 mmHg PV Regurgitation Doppler NM Peak Velocity 2.21 m/s Mitral Valve Name Value Normal MV Doppler MV PHT 84 ms MV Diastolic Function MV E Peak Velocity 0.60 m/s <=0.50 MV A Peak Velocity 0.77 m/s MV E/A 0.78 <=0.80 MV Decel Time 290 ms MV Annular TDI MV Septal s' Velocity 9.55 cm/s MV Septal e' Velocity 6.13 cm/s >=7.00 MV E/e' (Septal) 9.8 <=8.0 MV Lateral s' Velocity 11.92 cm/s MV Lateral e' Velocity 7.71 cm/s >=10.00 MV E/e' (Lateral) 7.81 <=8.00 MV e' Average 6.92 MV E/e' (Average) 8.82 <=14.00 Tricuspid Valve Name Value Normal TV Regurgitation Doppler TR Peak Velocity 2.59 m/s <=2.80 TR Peak Gradient 22 mmHg Estimated PAP/RSVP RA Pressure 3 mmHg <=5 PA Systolic Pressure 30 mmHg <40 PA Mean Pressure (NM Velocity) 23 mmHg TV Diastolic Function TV E Peak Velocity 0.27 m/s TV A Peak Velocity 0.29 m/s TV E/A 0.95 0.80-2.00 TV Decel Time 396 ms >=120 TV Annular TDI TV Lateral Angelica s' Velocity 12.5 cm/s 9.5-18.7 TV Lateral Angelica e' Velocity 10.1 cm/s <7.8 TV E/e' 2.68 2.00-6.00 Aorta Name Value Normal Ascending Aorta Sinus of Valsalva Diameter 3.8 cm 3.1-3.7 Sinus of Valsalva Index 1.56 cm/m2 1.50-1.90 Prox Asc Ao Diameter 3.5 cm 2.6-3.4 Prox Asc Ao Diameter Index 1.43 cm/m2 1.30-1.70 Thoracic Aorta Ao Arch Diameter 3.6 cm Desc Ao Peak Velocity 0.70 m/s Desc Ao Peak Gradient 2 mmHg Venous Name Value Normal IVC/SVC IVC Diameter (Insp 2D) 0.3 cm IVC Diameter (Exp 2D) 1.4 cm <=2.1 IVC Diameter Percent Change (2D) 75 % >=50 Aortic Valve Name Value Normal AV Doppler AV Peak Velocity 1.12 m/s <2.00 AV Peak Gradient 5 mmHg AV Area (Cont Eq Oswald) 2.1 cm2 AV Area Index (Cont Eq Oswald) 0.87 cm2/m2 AV V1/V2 Ratio 0.73 AV Regurgitation 2D LVOT Area 2.9 cm2 Ventricles Name Value Normal LV Dimensions 2D/MM IVS Diastolic Thickness (2D) 1.1 cm 0.6-1.0 LVID Diastole (2D) 5.6 cm 3.6-5.6 LVIW Diastolic Thickness (2D) 1.1 cm 0.6-1.0 LVID Systole (2D) 4.4 cm 2.5-4.0 LVOT Diameter 1.9 cm LV Fractional Shortening/Ejection Fraction 2D/MM LV Diastolic Volume (4C MOD) 93 ml LV Diastolic Volume (2C MOD) 104 ml LV Diastolic Volume (BP MOD) 98 ml 62-150 LV Diastolic Volume Index (BP MOD) 40.17 ml/m2 34.00-74.00 LV Systolic Volume (BP MOD) 36 ml 21-61 LV Systolic Volume Index (BP MOD) 14.59 ml/m2 11.00-31.00 LV EF (BP MOD) 64 % 57-68 LV Stroke Volume (4C MOD) 61.82 ml RV Dimensions 2D/MM RV Basal Diastolic Dimension 4.0 cm 2.5-4.1 TAPSE 2.6 cm >=1.7 Atria Name Value Normal LA Dimensions LA Area (4C) 24.6 cm2 LA Length (4C) 6.5 cm LA Area (2C) 25.5 cm2 LA Length (2C) 6.1 cm LA Volume (4C A-L) 78.79 ml LA Volume (2C A-L) 90.92 ml LA Volume (BP A-L) 88 ml 18-58 LA Volume Index (BP A-L) 35.94 ml/m2 <=34.00 RA Dimensions RA Area (4C) 17.8 cm2 <=18.0 Final Signed by:DO Meyer Jason D Signed (Electronic Signature):01/12/2023 10:57 Patient Care team information Care Team Personnel Name: CANDACE Puckett Jill Nicole Position: Nurse Pract - Family Med Member Role: Primary Care Provider Address: Address: [address] [place] [address], [place] [address] Care Team Related Persons Name: IQRA TRAORE Address: [place] Address: home [address] [place] [id number]
== END 2023-06-21 14:15 | disposition home or self-care (01) | DRG 69 ==
LOC: ED 12:17 → INTOOBSV 14:07 → SUATTDRO 14:07 → 2N 14:07